=== PATIENT | male | born 1965 | race Caucasian/White ===

== ENCOUNTER → 2019-09-19 12:05 | Outpatient (BNVA) | payer MEDICARE, MEDICAID, SELFPAY | PROVIDERS: Family Provider Nurse Practitioner; Visit Provider Nurse Practitioner Family | DX: E11.9 Type 2 diabetes mellitus without complications (principal) | CPT/HCPCS: 80053; 80061; 82044; 83036; 85025 ==

== ENCOUNTER → 2019-10-31 11:46 | Outpatient (BNVA) | payer MEDICARE, MEDICAID, SELFPAY | PROVIDERS: Family Provider Nurse Practitioner; Visit Provider Nurse Practitioner Family | DX: K59.00 Constipation, unspecified (principal); M54.5 Low back pain | CPT/HCPCS: 74018 ==

== ENCOUNTER → 2019-12-23 13:15 | Outpatient (BNVA) | payer MEDICARE, MEDICAID, SELFPAY | PROVIDERS: Family Provider Nurse Practitioner; Visit Provider Nurse Practitioner Family | DX: B83.9 Helminthiasis, unspecified (principal) | CPT/HCPCS: 87169; 87506 ==

== ENCOUNTER 2019-12-25 05:57 | Day surgery (SDC) | payer MEDICARE, MEDICAID, SELFPAY ==
[2019-12-25 06:18] VITALS: BMI 24.6
--- NOTE | 2019-12-25 06:18 | W.PM.OPSUD ---
Surgery/Procedure H&P Update DATE OF PROCEDURE: December 25, 2019 DATE H&P PERFORMED: 12/02/19 H&P UPDATE INFORMATION: I have reviewed H&P completed within last 30 days, I have examined patient prior to procedure and No changes to prior documentation PREOP DIAGNOSIS: Change in bowel habit PRIMARY INDICATION FOR PROCEDURE: The same PLANNED PROCEDURE: Operation Date: 12/25/19 07:00 Proposed Procedures p Colonoscopy 45445 R19.4(Not Applicable) - Gagandeep Hernandez MD
[2019-12-25 06:25] VITALS: BP 137/101; PULSE 103; RESP 20; TEMP 36.2; O2SAT 97
[2019-12-25] MEDS: sodium chloride 0.9% 1,000 ML 30 ML IV (06:35)
--- NOTE | 2019-12-25 06:38 | ANES.PREANE2 ---
Pre-Anesthetic Assessment Pre-Anesthetic Assessment: Height/Weight: Height 1.98 m Weight 96.615 kg Temp Pulse Resp BP Pulse Ox 97.1 F L 103 H 20 H 137/101 97 12/25/19 06:25 12/25/19 06:25 12/25/19 06:25 12/25/19 06:25 12/25/19 06:25 Preop Diagnosis: Change in bowel habit Proposed Procedure: Operation Date: 12/25/19 07:00 Proposed Procedures p Colonoscopy 56871 R19.4(Not Applicable) - Gagandeep Hernandez MD Was Beta Gopi taken within 24 hours: N/A Last Intake: 00:00 Social: Social History: Tobacco (1pk) Exam: Pre-Anes Outpt Exam: alert, oriented x 3, clear to auscultation bilaterally and regular rate & rhythm Airway: Submandibular: WNL Cervical ROM: WNL MP: 2 Dentition: False History/ROS: No significant history except as noted and No significant complaints Pulmonary: Pulmonary: COPD CV/HEM: CV/HEM: [place] (3yr ago, no stent) : : None reported Hepatic: Hepatic: None reported GI: GI: GERD Metabolic: Metabolic: DM Musc/skel: Musc/skel: Lower Back Pain and OA/DJD Neuropsych: Neuropsych: None reported Anesthetic Plan: ASA status: 3 Anesthesia: MAC Meds/Allergies Current Medications: Current Medications Generic Name Dose Route Start Last Admin Trade Name Freq PRN Reason Stop Dose Admin Sodium Chloride 1,000 mls @ 30 ml s/hr 12/25/19 06:15 12/25/19 06:35 Sodium Chloride 0.9% IV 12/26/19 06:14 30 mls/hr .Q24H LEO Administration PFSH Anesthesia PFSH: Medical History (Updated 12/20/19 @ 13:36 by TIFFANIE Guthrie) Anxiety Caries Change in bowel habits COPD (chronic obstructive pulmonary disease) Erectile dysfunction GERD (gastroesophageal reflux disease) History of [place] (myocardial infarction) Hyperlipidemia Hypertension Hypogonadism Mass of upper lobe of right lung Uncontrolled diabetes mellitus Surgical History History of appendectomy History of total shoulder replacement Family History Other Cancer Diabetes Heart disease Hypertension Social History Smoking and tobacco status: smoker, details unknown cigarettes Packs smoked per day: 1.5 Years cigarettes smoked: 45 Second hand smoke exposure: Yes Alcohol intake: current Alcohol intake frequency: holidays/special occasions only Lives independently: Yes Household members: family Marital status: service: No Current occupational status: disabled History of recent travel: No Current gender identity: Male Data Anesthesia Cardiac Studies: No Data to Display
[2019-12-25 07:06] VITALS: BP 119/85; PULSE 193; RESP 16; TEMP 36.4; O2SAT 97
[2019-12-25 07:15] VITALS: BP 108/71; PULSE 115; RESP 18; O2SAT 98
--- NOTE | 2019-12-25 08:37 | ANE.PACU2 ---
Inpatient post-anesthesia follow up: Airway intact: Yes Vital signs: Temperature 97.6 F Pulse Rate 115 Respiratory Rate 18 Blood Pressure 108/71 Pulse Oximetry 98 Oxygen Delivery Me thod Room Air Oxygen Flow Rate 3 Fraction of Inspir ed Oxygen Hydration adequate: Yes Nausea and vomiting: No Mental status: Baseline
[2019-12-25 11:07] LABS: Glucose Point of Care 276 mg/dL (70-110)
== END 2019-12-25 07:23 | disposition home or self-care (01) ==
PROVIDERS: Visit Provider Surgery
PROC: 0DJD8ZZ Inspection of Lower Intestinal Tract, Via Natural or Artificial Opening Endoscopic (ICD-10-PCS; CPT 45378; principal; 2019-12-25 07:00)
DX: R19.4 Change in bowel habit (principal); K64.4 Residual hemorrhoidal skin tags; F41.9 Anxiety disorder, unspecified; J44.9 Chronic obstructive pulmonary disease, unspecified; K21.9 Gastro-esophageal reflux disease without esophagitis; E78.5 Hyperlipidemia, unspecified; I10 Essential (primary) hypertension; I25.2 Old myocardial infarction; F17.210 Nicotine dependence, cigarettes, uncomplicated; E11.9 Type 2 diabetes mellitus without complications; Z79.84 Long term (current) use of oral hypoglycemic drugs; M19.90 Unspecified osteoarthritis, unspecified site; Z82.49 Family history of ischemic heart disease and other diseases of the circulatory system
CPT/HCPCS: 12345; 36416; 45378; 82962; J2704; J7030

== ENCOUNTER → 2020-01-10 11:00 | Outpatient (BNVA) | payer MEDICARE, MEDICAID, SELFPAY | PROVIDERS: Visit Provider Nurse Practitioner Family | DX: R10.84 Generalized abdominal pain (principal); E11.65 Type 2 diabetes mellitus with hyperglycemia; Z79.4 Long term (current) use of insulin; I10 Essential (primary) hypertension; R91.8 Other nonspecific abnormal finding of lung field; K21.9 Gastro-esophageal reflux disease without esophagitis; E78.5 Hyperlipidemia, unspecified; M54.42 Lumbago with sciatica, left side; M54.41 Lumbago with sciatica, right side; J44.9 Chronic obstructive pulmonary disease, unspecified; F41.9 Anxiety disorder, unspecified; F17.200 Nicotine dependence, unspecified, uncomplicated | CPT/HCPCS: 80053; 80061; 82044; 83036; 84443; 85025 ==

== ENCOUNTER 2020-02-05 09:07 | Outpatient (CLI) | payer MEDICARE, MEDICAID, SELFPAY ==
--- NOTE | 2020-02-05 09:47 | CT_ITS ---
WS: [id number] CT scan of the chest With IV contrast, CT scan of the abdomen and pelvis with IV contrast and witho ut oral contrast. Additional two-dimensional coronal and sagittal reconstruction was performed. 2019 Clinical Data: abdominal pain, lower Comparison: CTA chest, 01/23/2019. DLP: 2564.[address] scans at [facility] use at least one of these dose optimization techniques: automat ed exposure control; mA and/or kV adjustment per patient size (includes targeted exams where dose is matched to clinical indication); or iterative reconstruction. Findings: Chest: Right upper lobe the mass now measures 2.46 cm. No other masses are seen. There are no lung nodules. No effusions are present. The trachea bifurcates normally into the bronchi. The heart size is normal with no pericardial effusion. The pulmonary arterial system and thoracic aorta demonstrate no abnormalities or dilatations. There is no axillary or significant mediastinal adenopathy. The bones of the thorax are unremarkable. Abdomen/pelvis: 1 The liver, gallbladder, spleen, adrenal glands and pancreas are normal. The kidneys show equal bilateral contrast excretion with no masses, hydronephrosis or renal calculi. There is a 1.42 cm left renal cortical cyst.. The abdominal aorta is normal in size. No appendicitis or diverticulitis is seen. The small bowel and stomach are not remarkable. No abscess , adenopathy, ascites, mass, obstruction or free air is seen.. The bladder is unremarkable. No inguinal hernia is seen. The bones of the lower thorax, lumbar spine, pelvis, and hips no osteoarthritis of the lumbar vertebr al bodies.. CT/CT chest abd pel w con* Impression: 1. Right upper lobe mass which is slightly larger than was seen last year. 2. No evidence of metastatic disease. 3. Negative for acute intra-abdominal or pelvic abnormalities.
[2020-02-05] MEDS: iohexol 300 mg/mL 100 mL Btl IV (10:15)
== END 2020-02-05 09:08 | disposition home or self-care (01) ==
LOC: RADWPI 09:11
PROVIDERS: Family Provider Nurse Practitioner Family; PCP Nurse Practitioner Family; Visit Provider Nurse Practitioner Family
DX: R10.30 Lower abdominal pain, unspecified (principal); R91.8 Other nonspecific abnormal finding of lung field
CPT/HCPCS: 71260; 74177; Q9967

== ENCOUNTER → 2020-03-03 14:45 | Outpatient (BNVA) | payer MEDICARE, MEDICAID, SELFPAY | PROVIDERS: Family Provider Nurse Practitioner Family; PCP Nurse Practitioner Family; Visit Provider Nurse Practitioner Family | DX: R19.5 Other fecal abnormalities (principal); R10.84 Generalized abdominal pain; N52.9 Male erectile dysfunction, unspecified | CPT/HCPCS: 80053; 85025 ==

== ENCOUNTER → 2020-03-06 14:45 | Outpatient (BNVA) | payer MEDICARE, MEDICAID, SELFPAY | PROVIDERS: Family Provider Nurse Practitioner Family; PCP Nurse Practitioner Family; Visit Provider Nurse Practitioner Family | DX: R19.5 Other fecal abnormalities (principal) | CPT/HCPCS: 82272 ==

== ENCOUNTER → 2020-04-20 12:26 | Outpatient (BNVA) | payer MEDICARE, MEDICAID, SELFPAY | PROVIDERS: Family Provider Nurse Practitioner Family; PCP Nurse Practitioner Family; Visit Provider Nurse Practitioner Family | DX: E11.65 Type 2 diabetes mellitus with hyperglycemia (principal); Z79.4 Long term (current) use of insulin | CPT/HCPCS: 80053; 80061; 83036; 85025 ==

== ENCOUNTER 2020-04-28 12:28 | Outpatient (CLI) | payer MEDICARE, MEDICAID, SELFPAY ==
--- NOTE | 2020-04-28 13:00 | MR_ITS ---
WS: [id number] MRI LUMBAR SPINE NONCONTRAST TECHNIQUE: Sagittal T1, T2 and STIR imaging. Axial T1 and T2 imaging. CLINICAL INFORMATION: M54.5 Low back pain COMPARISON: None. FINDINGS: Mild lumbar curve. No acute compression. Mild disc bulging worse L4-L5 and L5-S1 with tiny disc protr usions. L1-L2: No significant disc bulging. Mild facet arthropathy. L2-L3: No significant disc bulging. Mild facet arthropathy. Spinal canal and foramen are patent. L3-L4: Mild annular bulging. Moderate facet arthropathy. Mild right and no significant left foraminal narrowing. Tiny right foraminal protrusion. L4-L5: Mild disc bulging with a left pericentral disc protrusion impinges the traversing left L5 nerv e root in the subarticular recess. Mild to moderate facet arthropathy. Mild bilateral foraminal narro wing. Slight subligamentous migration of disc material. L5-S1: Disc osteophyte complex with endplate ridging. Slight effacement of ventral thecal sac. Mild f acet arthropathy. Mild to moderate bilateral foraminal narrowing. Visualized pelvic bony structures: Normal. Paravertebral soft tissues: Normal. Mild central canal stenosis on the batch maker imaging the cervical spine at C4-C6. MR/MR lumbar spine wo con* [id number] IMPRESSION: 1. Mild lumbar curve. No acute compression. No high-grade central canal stenos is. 2. Left pericentral disc protrusion L4-5 with a tiny annular tear impinges the traversing left L5 nerve root.Correlation for left L5 nerve root symptoms. 3. Disc osteophyte complex L5-S1 with slight effacement of the ventral thecal sac and small shallow central protrusion. Mild to moderate bilateral L5-S1 fora chelsea narrowing due to disc osteophytic ridging. 4. Tiny shallow right foraminal protrusion L3-4 with mild right foraminal narr owing. 5. Mild central canal stenosis in the cervical spine on the batch maker imaging at C 4-C6.
== END 2020-04-28 12:29 | disposition home or self-care (01) ==
LOC: RADSHAW 12:32
PROVIDERS: PCP Nurse Practitioner Family; Visit Provider Nurse Practitioner Family
DX: M51.26 Other intervertebral disc displacement, lumbar region (principal); M25.78 Osteophyte, vertebrae; M48.02 Spinal stenosis, cervical region
CPT/HCPCS: 72148

== ENCOUNTER → 2020-07-03 09:17 | Outpatient (BNVA) | payer MEDICARE, MEDICAID, SELFPAY | PROVIDERS: PCP Nurse Practitioner Family; Visit Provider Nurse Practitioner Family | DX: M25.572 Pain in left ankle and joints of left foot (principal); I10 Essential (primary) hypertension; L03.116 Cellulitis of left lower limb; K59.00 Constipation, unspecified; E11.65 Type 2 diabetes mellitus with hyperglycemia; Z79.4 Long term (current) use of insulin | CPT/HCPCS: 73610; 80053; 80061; 83036; 85025 ==

== ENCOUNTER → 2020-08-12 15:28 | Outpatient (BNVA) | payer MEDICARE, MEDICAID, SELFPAY | PROVIDERS: PCP Nurse Practitioner Family; Visit Provider Nurse Practitioner Family | DX: J06.9 Acute upper respiratory infection, unspecified (principal) | CPT/HCPCS: 87635 ==

== ENCOUNTER → 2020-10-08 16:24 | Outpatient (BNVA) | payer MEDICARE, MEDICAID, SELFPAY | PROVIDERS: PCP Nurse Practitioner Family; Visit Provider Nurse Practitioner Family | DX: I10 Essential (primary) hypertension (principal); E11.40 Type 2 diabetes mellitus with diabetic neuropathy, unspecified; E11.65 Type 2 diabetes mellitus with hyperglycemia; Z79.4 Long term (current) use of insulin; N52.9 Male erectile dysfunction, unspecified; M54.42 Lumbago with sciatica, left side; R10.9 Unspecified abdominal pain; G89.29 Other chronic pain; M54.41 Lumbago with sciatica, right side; F17.200 Nicotine dependence, unspecified, uncomplicated; E78.5 Hyperlipidemia, unspecified; K21.9 Gastro-esophageal reflux disease without esophagitis; J44.9 Chronic obstructive pulmonary disease, unspecified | CPT/HCPCS: 80053; 80061; 83036; 85025 ==

== ENCOUNTER 2020-11-08 18:34 | Emergency (ER) | payer MEDICARE, MEDICAID, SELFPAY ==
--- NOTE | 2020-11-08 18:38 | XRR_ITS ---
PROCEDURE INFORMATION: Exam: XR Chest Exam date and time: 11/08/2020 7:10 PM Age: 55 years old Clinical indication: Chest pain; Prior surgery; Surgery type: Appy; Additional info: Cp TECHNIQUE: Imaging protocol: XR of the chest. Views: 1 view. COMPARISON: 1. CT chest abd pel w con* 02/05/2020 10:11 AM 2. [place] Chest 1 [place] [id number] 01/23/2019 3:42:57 PM FINDINGS: Lungs: There is a mass projecting in the right upper lobe that measures about 2.7 cm in diameter. This is similar to the previous chest radiograph from 01/23/2019. Mild fibrotic changes are present in the lung bases. Pleural spaces: Unremarkable. No pleural effusion. No pneumothorax. Heart/Mediastinum: Unremarkable. No cardiomegaly. Bones/joints: Unremarkable. XR/XR chest 1V portable [id number] IMPRESSION: 1. There has been no significant change in the size of the right upper lobe lung mass since previous chest x-ray from 01/23/2019. 2. No other acute abnormalities are seen in the chest.
--- NOTE | 2020-11-08 18:38 | ECG_ITS ---
[facility] Test Date: 2020-11-08 Pat Name: Wes Edward Department: Room: Gender: Male [employer] Director: : 1965 Requested By: Duran Mccoy Order Number: [id number] Andres MD: Keren Ruiz M.D. Measurements Intervals [place] Rate: 90 P: 40 IA: 197 QRS: 32 QRSD: 92 T: 37 QT: 336 QTc: 411 Interpretive Statements SINUS RHYTHM Compared to ECG 01/23/2019 14:48:18 Sinus tachycardia no longer present Electronically Signed On 11-10-2020 12:23:22 CDT by Keren Ruiz M.D. [id number] f
[2020-11-08 18:52] VITALS: BP 140/96; PULSE 93; RESP 18; TEMP 36.9; O2SAT 95; BMI 29.7
--- NOTE | 2020-11-08 18:52 | ED_ITS ---
HPI - Chest Pain General: Chief Complaint: Chest Pain Stated Complaint: CHEST PAIN Time Seen by Provider: 11/08/20 18:38 History of Present Illness: HPI narrative: The patient is a 55-year-old male with past medical history coronary artery disease and multiple MIs in the past, diabetes, COPD. He comes to the ER complaining of onset of left-sided chest pain earlier today. He took a nitroglycerin at home which did not help with this pain but his medication is . Called EMS who arrived and gave him one of their nitroglycerin which did help reduce his pain somewhat. They also gave him aspirin 324 and brought him to the ED. EKG shows sinus rhythm. He complains of left-sided chest pain. He says he has been under a lot of stress recently he thinks that is what is causing this. He has had multiple MIs in the past and has had no stents. He has not followed up with cardiology in years. Pertinent past history: coronary artery disease and prior VT Timing of current episode: constant Onset: during rest and during exertion Pain location: left chest Pain radiation: left shoulder Severity: moderate Quality: similar to prior VT Relieving factors: nitroglycerin Exacerbating factors: nothing Associated symptoms: Reports no associated symptoms; Deny abdominal pain, dyspnea or palpitations Treatment prior to arrival: aspirin and nitroglycerin Review of Systems General: Reports: 10 or more systems reviewed and unremarkable except in HPI and below Const: Denies: fatigue Eyes: Denies: change in vision, blurry vision or eye redness ENMT: Denies: throat pain, swelling of lips/tongue, ear or mastoid pain or nasal congestion Card: Reports: chest pain; Denies: palpitations, irregular heart rhythm, edema, dyspnea on exertion or orthopnea Resp: Denies: dyspnea, productive cough or non-productive cough GI: Denies: abdominal pain, diarrhea or GI cramping : Denies: flank pain, urinary frequency or urinary urgency Musc: Denies: neck pain, back pain, extremity pain, joint pain, joint redness, limited range of motion or muscle weakness Skin/Breast: Denies: rash, pruritus, erythema, skin pain or skin tenderness Neuro: Denies: headache(s), numbness in extremities, weakness in extremities, sensory changes, difficulty walking, dizziness, confusion or Slurred speech present Psych: Denies: anxiety or depression Endo: Denies: polyuria All/Imm: Denies: urticaria, throat swelling or tongue swelling PFSH ED PFSH: Medical History (Updated 11/08/20 @ 19:36 by Duran Mccoy MD) Abdominal pain Anxiety Caries Change in bowel habits COPD (chronic obstructive pulmonary disease) Erectile dysfunction GERD (gastroesophageal reflux disease) History of [place] (myocardial infarction) Hyperlipidemia Hypertension Hypogonadism Mass of upper lobe of right lung Uncontrolled diabetes mellitus Surgical History History of appendectomy History of colonoscopy (~12/2019) History of total shoulder replacement Family History Other Cancer Diabetes Heart disease Hypertension Social History Smoking and tobacco status: smoker, details unknown cigarettes Packs smoked per day: 1.5 Years cigarettes smoked: 45 Second hand smoke exposure: Yes Alcohol intake: current Alcohol intake frequency: holidays/special occasions only Lives independently: Yes Household members: family Marital status: service: No Current occupational status: disabled History of recent travel: No Current gender identity: Male Physical Exam Const: COMMON NORMALS: no acute distress, average body habitus, patient oriented x3, no limitations, healthy appearing, alert and well nourished GENERAL APPEARANCE: cooperative, comfortable, well kempt and well developed ORIENTATION/CONSCIOUSNESS: Yes awake, Yes oriented to person, Yes oriented to place and Yes oriented to time HENMT: COMMON NORMALS: normocephalic, external ears normal and Normal external nose present HEAD & SCALP: normal to inspection and normocephalic NOSE: Normal external nose present EXTERNAL EAR: Yes external ears normal MOUTH: Normal oral and palatal mucosa present THROAT: posterior oropharynx normal Eye: COMMON NORMALS: Equal, round and reactive pupils present and EOMs intact bilaterally GENERAL EYE: appearance normal, both eyes and all related structures PUPIL: Yes Equal, round and reactive pupils present Neck/C-Spine: COMMON NORMALS: full ROM, no lymphadenopathy, no meningeal signs and no JVD GENERAL: Yes normal visual inspection Lymph: LYMPHATIC: no lymphadenopathy noted Chest: COMMONS NORMALS: normal inspection of the chest and normal palpation of entire chest wall Resp: COMMON NORMALS: normal respiratory effort, No retractions, No use of accessory muscles, clear to auscultation bilaterally and percussion normal EFFORT & INSPECTION: Yes able to speak in complete sentences AUSCULTATION: clear to auscultation bilaterally PERCUSSION: percussion normal Cardio: COMMON NORMALS: no JVD, regular rate, regular rhythm, S1 normal heart sound present, S2 normal heart sound present and Peripheral pulses 2+ throughout RATE: regular rate RHYTHM: regular rhythm HEART SOUNDS: S1 normal heart sound present and S2 normal heart sound present PERIPHERAL PULSES: Peripheral pulses 2+ throughout GI: COMMON NORMALS: Normal to inspection, nondistended, normoactive bowel sounds present, Soft to palpation, non-tender and no masses INSPECTION: Yes normal to inspection PALPATION: Yes Soft to palpation : COMMON NORMALS: Yes no CVA tenderness BLADDER/KIDNEY EXAM: Yes no CVA tenderness Back/Pelvis: COMMON NORMALS: no CVA tenderness, thoracic and lumbar spine normal to inspection, no thoracic nor lumbar tenderness and thoraco-lumbar ROM normal Extremity: COMMON NORMALS: normal to inspection, full ROM, capillary refill normal, no joint enlargement and no pedal edema GENERAL: Yes normal exam except as noted Neuro: COMMON NORMALS: patient oriented x3, CN's II-XII intact bilaterally, moves all extremities, no focal motor deficits, no sensory deficits noted and gait normal SENSORIUM/ORIENTATION: Yes alert, Yes oriented to person, Yes oriented to place and Yes oriented to time MENINGEAL SIGNS: Yes no meningeal signs Psych: COMMON NORMALS: mental status grossly normal, Normal thought process present, cooperative, normal affect and speech normal APPEARANCE: Yes well kempt ATTITUDE: Yes calm SPEECH: Yes normal speech THOUGHT PROCESS: Normal thought process present Skin: COMMON NORMALS: no rashes or lesions noted GENERAL SKIN EXAM: no rashes or lesions noted Course Vital Signs: Vital signs: Vital Signs Temperature 98.4 F 11/08/20 18:52 Pulse Rate 89 11/08/20 19:03 Respiratory Rate 16 11/08/20 19:03 Blood Pressure 148/87 11/08/20 19:03 Pulse Oximetry 96 11/08/20 19:03 MDM - Chest Pain MDM Narrative: Medical decision making narrative: The patient for unknown reason decided to leave AGAINST MEDICAL ADVICE. I did not have time to discuss with him to stay because I was involved in the critical transfer and care of another patient. The nurse coached him that he could from a heart attack or have permanent disability. He was alert and oriented x4 acknowledged and und erstood those risks and signed and left AMA. Lab Data: Labs: Lab Results 11/08/20 Range/Units 19:10 WBC 12.8 H (4.0-10.0) 10^3/ uL RBC 5.96 H (4.1-5.3) 10^6/u L Hgb 17.4 H (11.7-16.6) g/dL Hct 51.6 (42.0-52.0) % MCV 86.6 (80-94) fL MCH 29.2 (28.0-34.0) pg MCHC 33.7 (30.0-36.0) g/dL RDW 13.8 (12.1-15.1) % Plt Count 218 (130-400) 10^3/c mm MPV 10.0 (7.4-10.4) fL Neut % (Auto) 77.6 % Lymph % (Auto) 16.5 % [place] % (Auto) 4.1 % Eos % (Auto) 1.1 % Baso % (Auto) 0.5 % Neut # (Auto) 9.96 H (1.8-7.7) 10^3/u L Lymph # (Auto) 2.1 (0.8-4.8) 10^3/u L [place] # (Auto) 0.5 (0.2-0.9) 10^3/u L Eos # (Auto) 0.1 (0.0-0.8) 10^3/u L Baso # (Auto) 0.1 (0.0-0.1) 10^3/u L Nucleated RBC % (a uto) 0 % Nucleated RBCs # 0.0 /100WBC Discharge Plan Discharge Patient Disposition: Left Against Medical Advice Clinical Impression: Chest pain Prescriptions: No Action Combivent Respimat 20-100 mcg/actuation mist 1 puff INHALATION QID Qty: 4 RF: 2 (DME) Diabetic shoes See Rx Instructions .Route .MEDSUPPLY Qty: 1 RF: 0 Senna Plus 8.6-50 mg capsule 1 tab-cap PO BID PRN (Reason: constipation) Qty: 30 RF: 0 mupirocin 2 % ointment See Rx Instructions .ROUTE .COMPLEX Qty: 22 RF: 2 docusate sodium [Colace] 100 mg capsule 100 mg PO BID 30 Days Qty: 60 RF: 3 omeprazole 40 mg capsule,delayed release(DR/EC) 40 mg PO DAILY Qty: 90 RF: 0 cyclobenzaprine 10 mg tablet See Rx Instructions .ROUTE .COMPLEX Qty: 30 RF: 0 Symbicort 160-4.5 mcg/actuation HFA aerosol inhaler 2 puff INHALATION BID Qty: 10.2 RF: 2 atorvastatin 40 mg tablet 40 mg PO DAILY Qty: 90 RF: 0 isosorbide mononitrate 30 mg tablet extended release 24 hr See Rx Instructions .ROUTE .COMPLEX Qty: 90 RF: 0 pregabalin 100 mg capsule 100 mg PO TID Qty: 90 RF: 2 polyethylene glycol 3350 [Miralax] 17 gram/dose powder 17 g PO DAILY 30 Days Qty: 510 RF: 2 (DME) FreeStyle Elena 14 Day Sensor Kit See Rx Instructions .ROUTE .MEDSUPPLY Qty: 1 RF: 12 dapagliflozin [Farxiga] 10 mg tablet See Rx Instructions .ROUTE .COMPLEX Qty: 90 RF: 0 diclofenac sodium 75 mg tablet,delayed release (DR/EC) See Rx Instructions .ROUTE .COMPLEX Qty: 180 RF: 0 metformin 500 mg tablet extended release 24 hr See Rx Instructions .ROUTE .COMPLEX Qty: 360 RF: 0 glipizide 5 mg tablet See Rx Instructions .ROUTE .COMPLEX Qty: 90 RF: 0 Referrals: Umm Herron FNP [Primary Care Provider] - Coding Level of Care Code 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
[2020-11-08 19:03] VITALS: BP 148/87; PULSE 89; RESP 16; O2SAT 96
[2020-11-08 19:19] LABS: Basophils # 0.1 10^3/uL (0.0-0.1); Basophils % 0.5 %; Eosinophils # 0.1 10^3/uL (0.0-0.8); Eosinophils % 1.1 %; Hematocrit 51.6 % (42.0-52.0); Hemoglobin 17.4 g/dL (11.7-16.6); Lymphocytes # 2.1 10^3/uL (0.8-4.8); Lymphocytes % 16.5 %; Mean Corpuscular HGB Conc 33.7 g/dL (30.0-36.0); Mean Corpuscular Hemoglobin 29.2 pg (28.0-34.0); Mean Corpuscular Volume 86.6 fL (80-94); Monocytes # 0.5 10^3/uL (0.2-0.9); Monocytes % 4.1 %; Neutrophils # 9.96 10^3/uL (1.8-7.7); Neutrophils % 77.6 %; Nucleated Red Blood Cells % 0 %; Platelet Count 218 10^3/cmm (130-400); Red Blood Count 5.96 10^6/uL (4.1-5.3); Red Cell Distribution Width 13.8 % (12.1-15.1); White Blood Count 12.8 10^3/uL (4.0-10.0)
[2020-11-08 19:35] LABS: D Dimer <= 0.27 ug/mIFEU (0-0.59)
[2020-11-08 19:40] LABS: Troponin(5th) Baseline 16 ng/L (0-15)
[2020-11-08 19:48] LABS: Alanine Aminotransferase 65 U/L (0-41); Albumin Level 4.4 g/dL (3.5-5.2); Alkaline Phosphatase 99 IU/L (40-130); Aspartate Amino Transferase 30 U/L (0-40); Blood Urea Nitrogen 9 mg/dL (6-20); Calcium 8.9 mg/dL (8.5-10.5); Carbon Dioxide 25 mmol/L (22-29); Chloride 97 mmol/L (98-107); Globulin 2.6 g/dL (1.3-4.6); Glomerular Filtration Rate 139.4 mL/min (90-130); Glucose 217 mg/dL (65-115); NT Pro B Type Natriuretic Pept 30 pg/mL (0-125); Osmolality Calculated 285 mOsm/kg (285-295); Sodium 135 mmol/L (136-145); Total Bilirubin 0.4 mg/dL (0.15-1.2)
== END 2020-11-08 19:32 | disposition left against medical advice (07) ==
PROVIDERS: Emergency Provider Family Medicine; PCP Nurse Practitioner Family
DX: R07.9 Chest pain, unspecified (principal); Z53.21 Procedure and treatment not carried out due to patient leaving prior to being seen by health care provider; Z79.84 Long term (current) use of oral hypoglycemic drugs; J44.9 Chronic obstructive pulmonary disease, unspecified; I25.2 Old myocardial infarction; E78.5 Hyperlipidemia, unspecified; I10 Essential (primary) hypertension; E11.9 Type 2 diabetes mellitus without complications; F17.210 Nicotine dependence, cigarettes, uncomplicated
CPT/HCPCS: 71045; 80053; 83880; 84484; 85025; 85378; 93005; 99283

== ENCOUNTER → 2020-11-25 14:11 | Outpatient (BNVA) | payer MEDICARE, MEDICAID, SELFPAY | PROVIDERS: PCP Nurse Practitioner Family; Visit Provider Nurse Practitioner Family | DX: R10.11 Right upper quadrant pain (principal) | CPT/HCPCS: 80053; 85025 ==

== ENCOUNTER 2020-11-27 07:56 | Outpatient (CLI) | payer MEDICARE, MEDICAID, SELFPAY ==
--- NOTE | 2020-11-27 08:00 | US_ITS ---
WS: [id number] RIGHT UPPER QUADRANT ULTRASOUND HISTORY: R10.11 - Right upper quadrant pain COMPARISON: None available. Liver: 16.9 cm in length. Liver is top normal size. Mild coarsened echotexture and hepatic steatosis. No bile duct dilatation or mass. Gallbladder: Normally distended gallbladder with no stones or wall thickening. CBD: 0.3 cm Pancreas: Normal size and echogenicity. Right kidney: 12.8 cm in length. Normal size and echogenicity. No hydronephrosis or mass. Aorta and IVC: Unremarkable abdominal aorta and IVC. No ascites. US/US gall bladder [id number] IMPRESSION: 1. Normal gallbladder. 2. Mild hepatic steatosis.
== END 2020-11-27 07:57 | disposition home or self-care (01) ==
PROVIDERS: PCP Nurse Practitioner Family; Visit Provider Nurse Practitioner Family
DX: R10.11 Right upper quadrant pain (principal); K76.0 Fatty (change of) liver, not elsewhere classified
CPT/HCPCS: 76705

== ENCOUNTER → 2021-03-03 11:33 | Outpatient (BNVA) | payer MEDICARE, MEDICAID, SELFPAY | PROVIDERS: PCP Nurse Practitioner; Visit Provider Nurse Practitioner | DX: E11.65 Type 2 diabetes mellitus with hyperglycemia (principal); K59.01 Slow transit constipation; Z79.4 Long term (current) use of insulin; M54.41 Lumbago with sciatica, right side; M54.42 Lumbago with sciatica, left side; J44.9 Chronic obstructive pulmonary disease, unspecified; E11.40 Type 2 diabetes mellitus with diabetic neuropathy, unspecified; K21.9 Gastro-esophageal reflux disease without esophagitis | CPT/HCPCS: 80053; 80061; 83036; 84443; 85025 ==

== ENCOUNTER → 2021-11-16 14:41 | Outpatient (BNVA) | payer MEDICARE, MEDICAID, SELFPAY | PROVIDERS: PCP Nurse Practitioner; Visit Provider Nurse Practitioner | DX: E11.65 Type 2 diabetes mellitus with hyperglycemia (principal); Z12.5 Encounter for screening for malignant neoplasm of prostate; N52.9 Male erectile dysfunction, unspecified | CPT/HCPCS: 80053; 80061; 81000; 83036; 85025; G0103 ==

== ENCOUNTER → 2021-12-31 13:58 | Outpatient (BNVA) | payer MEDICARE, MEDICAID, SELFPAY | PROVIDERS: PCP Nurse Practitioner; Visit Provider Nurse Practitioner | DX: E11.65 Type 2 diabetes mellitus with hyperglycemia (principal); Z79.4 Long term (current) use of insulin; J32.9 Chronic sinusitis, unspecified | CPT/HCPCS: 80048 ==

== ENCOUNTER → 2022-01-12 13:04 | Outpatient (BNVA) | payer MEDICARE, MEDICAID, SELFPAY | PROVIDERS: PCP Nurse Practitioner; Visit Provider Nurse Practitioner Family | DX: M47.812 Spondylosis without myelopathy or radiculopathy, cervical region (principal); M47.817 Spondylosis without myelopathy or radiculopathy, lumbosacral region; M47.814 Spondylosis without myelopathy or radiculopathy, thoracic region | CPT/HCPCS: 72040; 72072; 72100 ==

== ENCOUNTER → 2022-03-02 13:32 | Outpatient (BNVA) | payer MEDICARE, MEDICAID, SELFPAY | PROVIDERS: PCP Nurse Practitioner; Visit Provider Nurse Practitioner Family | DX: M25.511 Pain in right shoulder (principal) | CPT/HCPCS: 73030 ==

== ENCOUNTER → 2022-03-15 10:09 | Outpatient (BNVA) | payer MEDICARE, MEDICAID, SELFPAY | PROVIDERS: PCP Nurse Practitioner; Visit Provider Orthopaedic Surgery | DX: R29.898 Other symptoms and signs involving the musculoskeletal system (principal) | CPT/HCPCS: 99203 ==

== ENCOUNTER → 2022-03-17 10:24 | Outpatient (BNVA) | payer MEDICARE, MEDICAID, SELFPAY | PROVIDERS: PCP Nurse Practitioner; Visit Provider Nurse Practitioner Family | DX: R53.83 Other fatigue (principal); N52.9 Male erectile dysfunction, unspecified; E11.65 Type 2 diabetes mellitus with hyperglycemia; Z12.5 Encounter for screening for malignant neoplasm of prostate; K21.9 Gastro-esophageal reflux disease without esophagitis; E11.40 Type 2 diabetes mellitus with diabetic neuropathy, unspecified; M25.511 Pain in right shoulder; M54.42 Lumbago with sciatica, left side; M54.41 Lumbago with sciatica, right side; G89.29 Other chronic pain; M75.00 Adhesive capsulitis of unspecified shoulder | CPT/HCPCS: 80053; 80061; 83036; 84402; 84403; 85025; G0103 ==

== ENCOUNTER → 2022-04-01 13:19 | Outpatient (BNVA) | payer MEDICARE, MEDICAID, SELFPAY | PROVIDERS: PCP Nurse Practitioner; Visit Provider Podiatrist Foot & Ankle Surgery | DX: E11.621 Type 2 diabetes mellitus with foot ulcer (principal); L97.513 Non-pressure chronic ulcer of other part of right foot with necrosis of muscle; L03.90 Cellulitis, unspecified; F17.210 Nicotine dependence, cigarettes, uncomplicated; E11.40 Type 2 diabetes mellitus with diabetic neuropathy, unspecified; M20.41 Other hammer toe(s) (acquired), right foot; M20.42 Other hammer toe(s) (acquired), left foot; L60.3 Nail dystrophy; Z79.84 Long term (current) use of oral hypoglycemic drugs | CPT/HCPCS: 11043; 11721; 73630; 99204 ==

== ENCOUNTER → 2022-04-12 15:37 | Outpatient (BNVA) | payer MEDICARE, MEDICAID, SELFPAY | PROVIDERS: PCP Nurse Practitioner; Visit Provider Podiatrist Foot & Ankle Surgery | DX: L03.032 Cellulitis of left toe (principal); E11.621 Type 2 diabetes mellitus with foot ulcer; L97.529 Non-pressure chronic ulcer of other part of left foot with unspecified severity; Z79.84 Long term (current) use of oral hypoglycemic drugs; B35.1 Tinea unguium; E11.42 Type 2 diabetes mellitus with diabetic polyneuropathy | CPT/HCPCS: 99214 ==

== ENCOUNTER → 2022-04-20 17:14 | Outpatient (BNVA) | payer MEDICARE, MEDICAID, SELFPAY | PROVIDERS: PCP Nurse Practitioner; Visit Provider Nurse Practitioner Family | DX: R53.83 Other fatigue (principal); N52.9 Male erectile dysfunction, unspecified | CPT/HCPCS: 84402; 84403; G0103 ==

== ENCOUNTER → 2022-07-05 08:46 | Outpatient (BNVA) | payer MEDICARE, MEDICAID, SELFPAY | PROVIDERS: PCP Nurse Practitioner; Visit Provider Surgery | DX: K42.9 Umbilical hernia without obstruction or gangrene (principal); R10.84 Generalized abdominal pain; R11.0 Nausea; N52.9 Male erectile dysfunction, unspecified; K59.01 Slow transit constipation; R12 Heartburn | CPT/HCPCS: 99214 ==

== ENCOUNTER 2022-07-21 13:07 | Outpatient (CLI) | payer MEDICARE, MEDICAID, SELFPAY ==
--- NOTE | 2022-07-21 13:18 | CT_ITS ---
WS: [id number] CT ABDOMEN AND PELVIS WITH CONTRAST HISTORY: stomach pain, nausea and constipation rule out obstruction TECHNIQUE: Imaging performed of the abdomen and pelvis with IV contrast. Single phase imaging of the abdomen. Coronal and sagittal reformats are submitted. All CT scans at [facility] use at [address] one of these dose optimization techniques: automated exposure control; mA and/or kV adjustment per patient size (includes targeted exams where dose is matched to clinical indication); or iterative re construction. IV CONTRAST: Omnipaque 350; 95 mL IV. Oral contrast: Yes. DLP: 1176.24 mGy.cm COMPARISON: 02/05/2020 Lower thorax: Marked nodular interstitial thickening at the RIGHT lung base and small effusion. Patie nt has a known, previously described mass in the RIGHT upper lobe as seen on 02/05/2020. This could be lymphangitic spread of tumor involving the visualized RIGHT lower lung field. Normal size heart. The re are a few small subcentimeter lymph nodes in the pericardial fat. Small hiatal hernia. Liver/biliary system: Normal size liver. Low-attenuation mass just anterior the gallbladder measures 9 mm. No bile duct dilatation. Portal vein is patent. Gallbladder: Mildly contracted gallbladder. Pancreas: Normal size pancreas and pancreatic duct. No adjacent inflammation. Spleen: Normal size spleen. No mass or infarct. Adrenal glands: Normal. Right kidney: Normal size kidney with a few cortical hypodensities which do not appear to be cysts. N o obstruction. Left kidney: Normal size with no obstruction. 1.5 cm cyst mid kidney. Aorta: Mild atherosclerosis with no aneurysm. Lymphadenopathy: Several small lymph nodes in the anterior lower thorax by the heart and in the fat anterior to the li kuldip. There are numerous small lymph nodes along the gastrohepatic ligament which are less than a cent imeter. Free fluid: None. GI tract: Normal appearance of the stomach. No small bowel obstruction. Mild diffuse constipation. Pr ior appendectomy. No colon obstruction. Abdominal wall: Unremarkable abdominal wall. No hernia. Pelvis: No free fluid or adenopathy within the pelvis. Bones: Unremarkable. CT/CT abdomen pelvis w con* [id number] IMPRESSION: 1. Abnormal RIGHT lung base. Nodular interstitial thickening at the lung base. Suspicious for lymphangitic spread of tumor versus pneumonia with a small effu jania. RIGHT upper lobe mass suspicious for neoplasm was described on 02/04/2021 and again on a radiograph of 11/08/2020. 2. Indeterminate 9 mm low-attenuation nodule in the liver. Early metastatic le jania is not excluded. 3. No adrenal mass. 4. There are a few very small lymph nodes in the upper abdomen which could be early metastatic lymph nodes or benign. 5. Prior cholecystectomy. Notified Kassy Ashley NP at 07/21/2022 4:04 PM.
[2022-07-21] MEDS: iohexol 350 mg/mL 500 mL Btl (per mL) IV (15:04)
== END 2022-07-21 13:08 | disposition home or self-care (01) ==
LOC: RAD 13:10
PROVIDERS: PCP Nurse Practitioner; Visit Provider Nurse Practitioner Family
DX: E11.621 Type 2 diabetes mellitus with foot ulcer (principal); L97.522 Non-pressure chronic ulcer of other part of left foot with fat layer exposed; E11.42 Type 2 diabetes mellitus with diabetic polyneuropathy; Z79.84 Long term (current) use of oral hypoglycemic drugs; K59.01 Slow transit constipation; R10.11 Right upper quadrant pain; R10.84 Generalized abdominal pain; R11.2 Nausea with vomiting, unspecified
CPT/HCPCS: 74177; 99214; Q9967

== ENCOUNTER 2022-08-04 16:16 | Outpatient (CLI) | payer MEDICARE, MEDICAID, SELFPAY ==
[2022-08-04] MEDS: iohexol 350 mg/mL 500 mL Btl (per mL) IV (16:47)
--- NOTE | 2022-08-04 17:00 | CTR_ITS ---
PROCEDURE INFORMATION: Exam: CT Chest With Contrast; Diagnostic Exam date and time: 08/04/2022 4:35 PM Age: 56 years old Clinical indication: Abnormal findings; Abnormal radiologic exam of lung or chest; Patient HX: Abn finding in chest on a/p; Additional info: Lung mass abn CT of abd, per Dr saldaña possible mets TECHNIQUE: Imaging protocol: Diagnostic computed tomography of the chest with contrast. Radiation optimization: All CT scans at this facility use at least one of these dose optimization techniques: automated exposure control; mA and/or kV adjustment per patient size (includes targeted exams where dose is matched to clinical indication); or iterative reconstruction. Contrast material: OMNI 350; Contrast volume: 95 ml; Contrast route: INTRAVENOUS (IV); COMPARISON: CT chest abd pel w con* 02/05/2020 10:11 AM RADIATION DOSE METRICS: Total DLP (mGy-cm): 554.8 FINDINGS: Lungs: Irregular soft tissue density in the right hilum surrounding the pulmonary vessels and tracking along the bronchi into the right upper, middle, and lower lobes. Larger 3.0 cm spiculated nodule in the right upper lobe. Scattered centrilobular opacities throughout the right lung and posterior right lower lobe. New 8 mm nodule in the posterior right lower lobe. New 3 mm and 2 mm left upper lobe nodules. New 3 mm and 4 mm left lower lobe nodules. Pleural spaces: Small posterior right pleural effusion. No visible pleural thickening or nodularity. No pneumothorax. Heart: Unremarkable. No cardiomegaly. No pericardial effusion. Lymph nodes: Increased mediastinal and hilar lymph nodes some of which contain calcifications, the largest measuring up to 1.3 cm short axis. Vasculature: Unremarkable. No aortic aneurysm. Liver: Diffuse fatty infiltration of the liver. Kidneys and ureters: Left renal cyst, Hounsfield units less than 20. No follow-up imaging is recommended. Bones/joints: Mild degenerative changes of the spine. No fracture or lytic lesion. Soft tissues: Unremarkable. CT/CT chest w con* [id number] IMPRESSION: 1. Larger 3.0 cm spiculated nodule in the right upper lobe, consistent with lung malignancy. 2. Perilymphatic opacities in the central right lung and hilum most likely represents lymphangitic spread of malignancy. 3. Centrilobular opacities throughout the right lung may represent endobronchial infection or atypical spread of malignant tumor. 4. New bilateral pulmonary nodules, consistent with metastatic disease. 5. Small right pleural effusion, possibly malignant. 6. Increased mediastinal and bilateral hilar lymph nodes is suspicious for metastasis. COMMENTS: Consistent with the [employer]'s Incidental Findings Committee white paper (J Am Jamil Radiol 2018): Any incidental renal lesion less than 1 cm or classified as too small to characterize, or any incidental cystic renal lesion characterized as simple-appearing, is likely benign. No follow-up imaging is recommended for these lesions per consensus recommendations based on imaging criteria.
== END 2022-08-04 16:17 | disposition home or self-care (01) ==
LOC: RAD 16:16
PROVIDERS: PCP Nurse Practitioner Family; Visit Provider Nurse Practitioner Family
DX: R93.5 Abnormal findings on diagnostic imaging of other abdominal regions, including retroperitoneum (principal); R91.8 Other nonspecific abnormal finding of lung field; J90 Pleural effusion, not elsewhere classified
CPT/HCPCS: 71260; Q9967

== ENCOUNTER → 2022-08-08 14:36 | Outpatient (BNVA) | payer MEDICARE, MEDICAID, SELFPAY | PROVIDERS: PCP Nurse Practitioner Family; Visit Provider Nurse Practitioner Family | DX: E11.42 Type 2 diabetes mellitus with diabetic polyneuropathy (principal); R53.83 Other fatigue; E11.65 Type 2 diabetes mellitus with hyperglycemia; C34.90 Malignant neoplasm of unspecified part of unspecified bronchus or lung; R74.01 Elevation of levels of liver transaminase levels; F41.9 Anxiety disorder, unspecified; J44.9 Chronic obstructive pulmonary disease, unspecified; E78.5 Hyperlipidemia, unspecified; I10 Essential (primary) hypertension; K21.9 Gastro-esophageal reflux disease without esophagitis | CPT/HCPCS: 80053; 80061; 82378; 83036 ==

== ENCOUNTER → 2022-08-15 09:25 | Outpatient (BNVA) | payer MEDICARE, MEDICAID, SELFPAY | PROVIDERS: PCP Nurse Practitioner Family; Visit Provider Internal Medicine Pulmonary Disease | DX: R91.8 Other nonspecific abnormal finding of lung field (principal); J44.9 Chronic obstructive pulmonary disease, unspecified; Z71.6 Tobacco abuse counseling; F17.210 Nicotine dependence, cigarettes, uncomplicated | CPT/HCPCS: 99204 ==

== ENCOUNTER 2022-08-16 05:28 | Day surgery (SDC) | payer MEDICARE, MEDICAID, SELFPAY ==
[2022-08-15 12:32] VITALS: BMI 26.9
[2022-08-16] VITALS (13 sets, daily range): BP systolic 98–159; BP diastolic 72–138; PULSE 95–120; RESP 18–23; TEMP 36.2–36.5; O2SAT 91–98
[2022-08-16] MEDS: sodium chloride 0.9% 1,000 ML 30 ML IV (06:40)
--- NOTE | 2022-08-16 06:44 | ECG_ITS ---
[facility] Test Date: 2022-08-16 Pat Name: Wes Edward Department: Room: Gender: Male Practice Lead: : 1965 Requested By: Kathe Klein Order Number: [id number] Campos MD: John Vazquez M.D. Measurements Intervals [place] Rate: 103 P: 33 MS: 176 QRS: 59 QRSD: 97 T: 39 QT: 327 QTc: 429 Interpretive Statements SINUS TACHYCARDIA POSSIBLE LEFT ATRIAL ENLARGEMENT [-0.1mV P-WAVE IN V1/V2] Compared to ECG 11/08/2020 18:46:41 Sinus rhythm no longer present Electronically Signed On 08-16-2022 7:48:02 MEDIA PLANNER / BUYER by John Vazquez M.D. [id number]
--- NOTE | 2022-08-16 06:47 | ANES.PREANE2 ---
Pre-Anesthetic Assessment Height/Weight: Height 1.85 m Weight 92.533 kg Temp Pulse Resp BP Pulse Ox O2 Del Method O2 Flow Rate 97.7 F 111 H 18 159/138 91 2 08/16/22 06:07 08/16/22 06:07 08/16/22 06:07 08/16/22 06:07 08/16/22 06:07 08/16/22 06:07 08/16/22 06:07 Preop Diagnosis: Change in bowel habit Operation Date: 08/16/22 07:00 Proposed Procedures p ION Bronchoscopy with EBUS 46877, 03122, 47480, 64892, 28437, 70699, 82239, 57659,72012, 10923,R91.8(Not Applicable) - Yariel Rocha MD s Ebus(Not Applicable) - Yariel Rocha MD Familial anesthetic complications: None Was Beta Gopi taken within 24 hours: N/A Was Clonidine taken within 24 hours: N/A Last intake: Intake Last Liquid Date 08/15/22 Last Liquid Time 23:00 Last Solid Date 08/15/22 Last Solid Time 19:00 Social Tobacco and No alcohol Exam alert, oriented x 3, clear to auscultation bilaterally and regular rate & rhythm Airway Mallampati: Class IV Dentition: other (no teeth) Pulmonary Chronic Obstructive Pulmonary Disease (2 L NC O2) and Sleep Apnea Lung mass CV/HEM Coronary Artery Disease, Hypertension and Myocardial Infarction GI Gastroesophageal Reflux Disease Metabolic Diabetes Mellitus and Hyperlipidemia Anesthetic Plan ASA status: 4 Anesthesia: General Risk of > 500 ml blood loss (7ml/kg in children): No Medications/Allergies Home Medications Medication Instructions Recorded Confirmed Last Taken Type diclofenac sodium 1 % topical gel 4 g topical QID #100 grams 03/02/22 08/16/22 08/15/22 Rx (Voltaren Arthritis Pain) mupirocin 2 % topical ointment 1 applic topical BID #15 grams 04/01/22 08/16/22 08/15/22 Rx blood sugar diagnostic (Blood #50 ea 04/25/22 08/15/22 08/15/22 Rx Glucose Test strips) blood-glucose meter #1 ea 04/25/22 08/15/22 08/15/22 Rx lancets (Comfort Lancets) #100 ea 04/25/22 08/15/22 08/15/22 Rx atorvastatin 20 mg tablet 20 mg PO .QHS 30 days #30 tabs 06/08/22 08/16/22 08/15/22 Rx dulaglutide 1.5 mg/0.5 mL 1.5 mg (0.5 mL) SUBCUT .weekly #2 06/08/22 08/16/22 Unknown Rx subcutaneous pen injector mL (Trulicity) lactulose 20 gram/30 mL oral 20 g (30 mL) PO BID PRN 06/08/22 08/16/22 08/15/22 Rx solution constipation 30 days #1,800 mL metformin 500 mg tablet,extended 1,000 mg PO DAILY #60 tabs 06/08/22 08/16/22 08/15/22 Rx release 24 hr tadalafil 20 mg tablet (Cialis) 20 mg PO DAILY PRN sexual activity 06/08/22 08/16/22 08/09/22 Rx #7 tabs albuterol sulfate 90 mcg/actuation 2 puff inhalation 6XD PRN 08/02/22 08/16/22 08/16/22 Rx aerosol inhaler (Ventolin HFA) shortness of breath or wheezing #8.5 grams fluticasone fur. 200 mcg-umeclid 1 inh inhalation Q24H #60 ea 08/02/22 08/16/22 08/16/22 Rx 62.5 mcg-vilant 25 mcg inhalat.powder (Trelegy Ellipta) promethazine-DM 6.25 mg-15 mg/5 mL 5 - 10 ml PO Q6H PRN cough #200 mL 08/02/22 08/16/22 Unknown Rx oral syrup NEBULIZER MACHINE AND TUBING #1 ea 08/08/22 08/15/22 08/15/22 Rx SUPPLIES OVERNIGHT AT HOME SLEEP STUDY #1 ea 08/08/22 08/15/22 08/15/22 Rx OXYGEN AT 2 LITERS PER N/C #1 ea 08/08/22 08/15/22 08/15/22 Rx CONTINUOUS ipratropium 0.5 mg-albuterol 3 mg 3 ml inhalation QID PRN shortness 08/08/22 08/16/22 08/16/22 Rx (2.5 mg base)/3 mL nebulization of breath or wheezing #180 mL soln acetaminophen 325 mg capsule 325 mg PO QID PRN Pain 08/15/22 08/16/22 08/15/22 History (Tylenol) guaifenesin 1,200 mg tablet, 1,200 mg PO Q12H PRN congestion 08/15/22 08/16/22 08/15/22 History extended release 12 hr (Mucinex) ibuprofen 600 mg tablet 600 mg PO Q6H PRN Pain 08/15/22 08/16/22 08/14/22 History Allergies Allergy/AdvReac Type Severity Reaction Status Date / Time codeine Allergy ALGY-Rash Verified 08/16/22 05:57 PFSH Anesthesia Medical History Abdominal pain Anxiety Caries COPD (chronic obstructive pulmonary disease) Diabetes mellitus with hyperglycemia, without long-term current use of insulin Erectile dysfunction GERD (gastroesophageal reflux disease) History of IA (myocardial infarction) Hyperlipidemia Hypertension Hypogonadism Mass of upper lobe of right lung Uncontrolled diabetes mellitus Surgical History History of appendectomy History of colonoscopy (~12/2019) History of total shoulder replacement Right Family History Other Cancer Diabetes Heart disease Hypertension Social History Smoking and tobacco status: current every day smoker cigarettes Packs smoked per day: 1 Years cigarettes smoked: 49 [ Other cigarette details: Started at age 8] Second hand smoke exposure: Yes Smoking risk assessment/counseling performed?: No Alcohol intake: current Alcohol intake frequency: holidays/special occasions only Desire information about alcohol rehabilitation?: No Counseling given: No Desire information about substance/drug rehabilitation?: No Counseling given: No Adopted: No Caregiver/support person: No Lives independently: Yes Household members: family Housing: House Marital status: Number of children: 23 Number of grandchildren: 19 service: No Current occupational status: disabled History of recent travel: No Current gender identity: Male Data Anesthesia Cardiac Studies: No Data to Display
[2022-08-16] MEDS: albuterol 2.5 mg/3 mL Neb INHALATION (06:50)
[2022-08-16 07:05] LABS: Glucose Point of Care 338 mg/dL (70-110)
--- NOTE | 2022-08-16 07:10 | W.PM.OPSUD ---
Surgery/Procedure H&P Update DATE OF PROCEDURE: August 16, 2022 DATE H&P PERFORMED: 08/15/22 CHANGES TO PREVIOUS DOCUMENTATION: nONE - MILD EXPIRATORY WHEEZE - WILL GIVE 1 NEB TREATMENT WITH ALBUTEROL PREOP DIAGNOSIS: Change in bowel habit PRIMARY INDICATION FOR PROCEDURE: SUSPECTED LUNG MALIGNANCY PLANNED PROCEDURE: Operation Date: 08/16/22 07:00 Proposed Procedures p ION Bronchoscopy with EBUS 55634, 36688, 29327, 74089, 68326, 92662, 23416, 98067,84241, 61643,R91.8(Not Applicable) - Yariel Rocha MD s Ebus(Not Applicable) - Yariel Rocha MD
--- NOTE | 2022-08-16 07:18 | SC_ITS ---
WS: [id number] C-ARM RADIOGRAPHS CHEST; 3 IMAGES HISTORY: for ion COMPARISON: None available. Intraoperative imaging during bronchoscopy by Dr. Rocha. SC/C-arm FL for Bronchoscopy IMPRESSION: Intraoperative imaging during bronchoscopy.
[2022-08-16] MEDS: lidocaine 1% INJ 20 mL XX (07:22)
[2022-08-16 08:09] LABS: Cyto Order Verification Order Verified
[2022-08-16 08:15] LABS: Bronch Source Right Upper Lobe
[2022-08-16 08:24] LABS: Apprearance, Bronch Wash Bloody (CLEAR); Color, Bronc Wash Red
[2022-08-16] MEDS: EPINEPHrine 1 mg/mL INJ XX (08:32)
--- NOTE | 2022-08-16 08:41 | XR_ITS ---
WS: [id number] PORTABLE CHEST HISTORY: POST ION COMPARISON: Chest CT 08/04/2022 and prior radiograph 11/08/2020 Mild volume loss in the RIGHT thorax. Similar to the prior study 08/04/2022. Dense consolidation and m ass in the RIGHT upper lobe is reidentified without significant change. Increase within the consolida tion and interstitial/reticular thickening in the RIGHT lower lobe. There is also a small RIGHT pleur al effusion. There is pleural thickening which is probably fluid. Some of the changes may be related to the biopsy with some bleeding. Diffuse interstitial thickening is thought to be lymphangitic sprea d of tumor. No pneumothorax identified. The LEFT lung remains clear. Cardiac size: Normal. Mediastinum/Aorta: Increased soft tissue thickening at the RIGHT hilum and inferior RIGHT paratrachea l region. Noted to be lymph nodes and neoplasm on a recent CT. No osseous abnormality seen. XR/XR chest 1V portable 07390 IMPRESSION: 1. Increase in the consolidation and reticulation in the RIGHT lower lobe sinc e the recent chest CT. May be due to some bleeding postbiopsy. 2. No change in the RIGHT upper lobe neoplasm. 3. No pneumothorax. 4. No midline shift.
--- NOTE | 2022-08-16 08:45 | PM.OP ---
Operative Report Date of procedure: August 16, 2022 Pre-op diagnosis: Preop Diagnosis Right upper lobe lesion Procedure done: 47187 Dx Bronchoscope w/Washings or airway inspection 72389 Bx Bronchoscope w/Brushings or protected brushings 47568 Dx Bronchoscope w/BAL 64234 Bronch with computer image guided Navigational Bronchoscopy 04724 Bronchoscopy w/Transbronchial lung biopsy(s), single lobe 94411 Bronchoscopy w/Transbronchial needle aspiration biopsy(s), tracheal, main stem, and/or lobar bronchus 00099 Bronchoscopy w/ therapeutic aspiration of the tracheobronchial tree (clearance of airway secretions, removal of mucus plugs) 70831 EBUS Sampling 1/2 nodes 80565 EBUS Diag or Interven Peripheral lesion (radial EBUS) Surgeon: Yariel Rocha MD [facility] Brief History: Mr. Wes Edward is a 57-year-old male referred by Ms. Kassy Ashley nurse practitioner for concerning lesions in CT chest. Patient is a current smoker, 1 ppd X 49 years. Started at age 8.? Continues to smoke half pack per day. Patient was apparently complaining of stomach pain, nausea and constipation and had a CT abdomen pelvis 07/21/2022 which showed nodular interstitial thickening at lung base suspicious for lymphangitic spread of tumor versus pneumonia with small effusion.? There is also right upper lobe mass suspicious for neoplasm which was described on previous CT 02/04/2021.? Indeterminate 9 mm low-attenuation nodule in the liver suspicious for metastasis. Subsequently a CT chest was obtained on 08/04/2022 showed larger 3 cm spiculated nodule in the right upper lobe consistent with lung malignancy (it was 2.46 cm on 02/05/2020 CT chest and 2 cm on 01/23/2019).? Upon review of records January 2019-he was admitted to hospital for chest pains, lightheadedness and had a CT chest that showed 2 cm mass-at that time patient was not interested in chemotherapy or radiation therapy and therefore he was not referred for bronchoscopy and biopsies.? During hospital discharge he was told to follow-up with primary care physician regarding the mass. Patient reported that he has been gradually losing weight over last couple of years but unable to quantify exactly.? Endorsed decreased appetite. Today patient is scheduled for Ion robotic assisted bronchoscopy guided biopsies of right upper lobe mass and endobronchial ultrasound-guided biopsies of mediastinal/hilar lymph nodes Procedure: 02482 Dx Bronchoscope w/Washings or airway inspection 67350 Bx Bronchoscope w/Brushings or protected brushings 21841 Dx Bronchoscope w/BAL 32375 Bronch with computer image guided Navigational Bronchoscopy 27234 Bronchoscopy w/Transbronchial lung biopsy(s), single lobe 22328 Bronchoscopy w/Transbronchial needle aspiration biopsy(s), tracheal, main stem, and/or lobar bronchus 44192 Bronchoscopy w/ therapeutic aspiration of the tracheobronchial tree (clearance of airway secretions, removal of mucus plugs) 14211 EBUS Sampling 1/2 nodes 76652 EBUS Diag or Interven Peripheral lesion (radial EBUS) Indication: Description of the procedure: The procedure was explained to the patient and the consent was obtained. The patient was brought to the OR. Anesthesia: The patient underwent endotracheal intubation for general anesthesia. Local anesthesia: The Anastasia, right and left mainstem bronchi were anesthetized with 1% lidocaine, 3 mL. Following induction of general anesthesia, the flexible bronchoscope used for initial inspection (70293) and airway clearance. The scope was advanced through the ET tube. The lower trachea mucosa appeared normal, no endotracheal lesion was seen. The anastasia was sharp. The anastasia, the right and left mainstem bronchi are anesthetized with 1% lidocaine. In a systematic manner bilateral bronchial tree was then examined. The bronchoscope was then introduced into the right mainstem bronchus. The right upper lobe, right middle lobe and right lower lobe bronchi were examined up to the third subsegmental level and edematous mucosa identified in all segments more so in right lower lobe and middle lobe. Also noted few very small nodular lesions on the proximal bronchus intermedius mucosa. There were some mucus secretions which were suctioned right away and right upper lobe and lower lobe (85736). The bronchoscope was advanced into the left mainstem bronchus. The mucosa appeared normal with no endobronchial lesions. The left upper lobe, lingula and left lower lobe bronchi were examined up to the third subsegmental level and no abnormalities were identified. Mucosa appeared normal with no endobronchial lesion, active bleeding or mucous plug. There were some mucus secretions in lower lobe-which were suctioned right away (08324). After initial inspection as well as airway clearance with flexible bronchoscope(86283), ION robotic assisted navigational bronchoscope (77220) was introduced-and right upper lobe lesion was accessed. After confirming the location with radial EBUS (28426), under the fluoroscopy guidance -we were able to obtain biopsies using fine-needle, forceps, Cytobrush. Bronchoscope was wedged into posterior segment of right upper lobe, 10 mL of saline was instilled, fluid return was 6 mL bronchoalveolar lavage (89515) was collected. The fluid was mixed with blood and specks of tissue. There was evidence of grade 2 bleeding-cold saline was instilled and after making sure there is no active bleeding, ION robotic assisted navigational bronchoscope was retracted and Endobronchial ultrasound (56158) was introduced for lymph node staging. Endobronchial ultrasound (EBUS )was introduced and did surveillance of mediastinal and hilar lymph nodes. Identified a large lymph node at station 11 R and station 4. Fine-needle aspiration biopsies (09901) were performed from station 11 R and station 4R.There was some evidence of bleeding-diluted epinephrine was instilled. EBUS was retracted, and reintroduced diagnostic bronchoscope and there was some evidence of grade 2 bleeding which was controlled with diluted epinephrine. After making sure there is no active bleeding bronchoscope was retracted and procedure terminated. Samples: A. right upper lobe lesion 1. Total 3 passes were made using needle aspiration(84552); 1 pass used for touch prep - reported positive for malignancy; rest of the material was placed in formalin for histopathology 2.Targeting the same area 3 passes were made using forceps (45309); 1 pass used for touch prep - reported negative for malignancy; rest of the material was placed in formalin for histopathology 3. Targeting the same area 1 pass was made with Cytobrush (08395) and material placed in formalin for histopathology review. 4. Bronchoalveolar lavage (38808) from right upper lobe sent for cytology, cell count, cultures A. Station 11 R -EBUS FNAC 1. Total 3 passes were made using needle aspiration(49563); 1 pass used for touch prep - reported positive for malignancy; rest of the material was placed in formalin for histopathology B. Station 4R-EBUS FNA C 1. Total of 3 passes were made using needle aspiration(11729); 1 pass used for touch prep - reported positive for malignancy; rest of the material was placed in formalin for histopathology Complications: None.The patient was extubated and brought to the PACU in stable condition. Postprocedure chest x-ray: No evidence of pneumothorax Disposition: Patient can be discharged home in stable condition. Pt, and his accompanying family are aware that I am going to call them to update final biopsy results once available.
[2022-08-16 08:57] LABS: Glucose Point of Care 324 mg/dL (70-110)
[2022-08-16] MEDS: albuterol 2.5 mg/3 mL Neb (09:05)
--- NOTE | 2022-08-16 09:06 | PC.NURSE ---
SaO2 upper 80's low 90s. Dr. Sprague ordered breathing treatment. Administered as ordered
--- NOTE | 2022-08-16 09:12 | PC.NURSE ---
SaO2 inproved post breathing tx. Coughing up blood tinged sputum
--- NOTE | 2022-08-16 09:15 | PC.NURSE ---
chest xray completed. Reviewed by Dr Sprague @ bedside
[2022-08-16 09:55] LABS: Total Cells Counted Bronch 200
--- NOTE | 2022-08-16 12:27 | ANE.PACU2 ---
Inpatient post-anesthesia follow up: Airway intact: Yes Vital signs: Temperature 97.2 F Pulse Rate 115 Respiratory Rate 18 Blood Pressure 109/72 Pulse Oximetry 93 Oxygen Delivery Me thod Nasal Cannula Oxygen Flow Rate 3 Fraction of Inspir ed Oxygen Hydration adequate: Yes Nausea and vomiting: No Pain level: 1 Mental status: Baseline
[2022-08-25 10:03] LABS: PD-L1 (Clone 22C3) by IHC BBPL See Report
== END 2022-08-16 09:50 | disposition home or self-care (01) ==
PROVIDERS: PCP Nurse Practitioner Family; Visit Provider Internal Medicine Pulmonary Disease
PROC: 0BJ08ZZ Inspection of Tracheobronchial Tree, Via Natural or Artificial Opening Endoscopic (ICD-10-PCS; CPT 31622; principal; 2022-08-16 07:00)
PROC: BB4BZZZ Ultrasonography of Pleura (ICD-10-PCS; 2022-08-16 07:00)
DX: C34.11 Malignant neoplasm of upper lobe, right bronchus or lung (principal); F17.210 Nicotine dependence, cigarettes, uncomplicated; Z79.84 Long term (current) use of oral hypoglycemic drugs; F41.9 Anxiety disorder, unspecified; J44.9 Chronic obstructive pulmonary disease, unspecified; E11.65 Type 2 diabetes mellitus with hyperglycemia; I25.2 Old myocardial infarction; K21.9 Gastro-esophageal reflux disease without esophagitis; E78.5 Hyperlipidemia, unspecified; I10 Essential (primary) hypertension
CPT/HCPCS: 31623; 31624; 31627; 31628; 31629; 31645; 31652; 31654; 36416; 71045; 76000; 80503; 82962; 87070; 87205; 88305; 88341; 88342; 89050; 93005; 94640; J0171; J2370; J2405; J2704; J3010; J3490; J7030; J7613

== ENCOUNTER 2022-08-29 15:42 | Oncology outpatient (recurring) (ONCR) | payer MEDICARE, MEDICAID, SELFPAY | END 2022-09-20 23:59 | disposition home or self-care (01) | PROVIDERS: PCP Nurse Practitioner Family; Visit Provider Internal Medicine Hematology & Oncology | DX: C34.11 Malignant neoplasm of upper lobe, right bronchus or lung (principal); C78.7 Secondary malignant neoplasm of liver and intrahepatic bile duct; C78.02 Secondary malignant neoplasm of left lung; J90 Pleural effusion, not elsewhere classified; K76.0 Fatty (change of) liver, not elsewhere classified; F17.210 Nicotine dependence, cigarettes, uncomplicated; Z79.899 Other long term (current) drug therapy | CPT/HCPCS: 99204 ==

== ENCOUNTER 2022-09-01 12:24 | Outpatient (CLI) | payer MEDICARE, MEDICAID, SELFPAY | END 2022-09-01 12:25 | disposition home or self-care (01) | LOC: RT 12:24 | PROVIDERS: PCP Nurse Practitioner Family; Visit Provider Internal Medicine Pulmonary Disease | DX: R91.8 Other nonspecific abnormal finding of lung field (principal); R09.02 Hypoxemia; J44.9 Chronic obstructive pulmonary disease, unspecified; F17.200 Nicotine dependence, unspecified, uncomplicated | CPT/HCPCS: 94060; 94729; J7613 ==

== ENCOUNTER 2022-09-05 07:46 | Outpatient (CLI) | payer MEDICARE, MEDICAID, SELFPAY ==
[2022-09-05] MEDS: gadobenate dimeglumine 20 mL vial IV (08:37)
--- NOTE | 2022-09-05 08:45 | MR_ITS ---
WS: [id number] MRI HEAD WITH CONTRAST TECHNIQUE: Sagittal T1, T2 axial, T2 axial FLAIR, axial susceptibility weighted imaging, axial diffus ion weighted images, and coronal T2 images were obtained. Pre and post-T1 axial and post T1 coronal i mages. ADC and FSPGR images. CLINICAL INFORMATION: Follow up COMPARISON: CT 2014 FINDINGS: No evidence of restricted diffusion to suggest acute ischemia. Ventricular system and basal cisterns are patent. No hemosiderin on susceptibly weighted images. Normal optic chiasm and pituitary infundib ulum. Normal cavernous sinuses and Meckel's cave. No abnormal gadolinium enhancement. No evidence of enhancing intracranial metastatic disease. Inciden poncho benign venous angioma RIGHT parasagittal parietal lobe. Normal dural venous sinuses. Mild small vessel changes. Mild parenchymal volume loss. Normal posterior fossa. Normal vascular flow voids at the skull base. No extra-axial fluid collections. No evidence of mass or mass effect. Paran ru sinuses and mastoid air cells are well aerated. MR/MR head wo/w con [id number] IMPRESSION: 1. No evidence of enhancing intracranial metastatic disease. 2. No restricted diffusion to suggest acute ischemia. 3. Mild small vessel changes. Mild parenchymal volume loss. 4. No other suspicious findings.
== END 2022-09-05 07:47 | disposition home or self-care (01) ==
LOC: RAD 07:46
PROVIDERS: PCP Nurse Practitioner Family; Visit Provider Internal Medicine Hematology & Oncology
DX: R91.8 Other nonspecific abnormal finding of lung field (principal)
CPT/HCPCS: 70553; A9577

== ENCOUNTER 2022-09-24 06:12 | Outpatient (CLI) | payer MEDICARE, MEDICAID, SELFPAY ==
--- NOTE | 2022-09-24 | PETR_ITS ---
PROCEDURE INFORMATION: Exam: PET/CT Skull Base to Mid-thigh Exam date and time: 09/24/2022 9:19 AM Age: 57 years old Clinical indication: Hepatomegaly. Abnormal findings on diagnostic imaging. LABS AND CLINICAL REPORTS: Glucose: 118 mg/dl Treatment strategy for malignancy (PET staging): Initial Staging (PI) TECHNIQUE: Imaging protocol: Following at least four-hour fasting and following the injection of F-18-FDG, low dose CT images were obtained. Then, PET images were obtained. Attenuation corrected images were constructed using the CT scan. Fused images of PET and CT were reviewed. The standardized uptake values (SUV) reported below are maximum values within a region of interest, expressed in gm/ml. Exam includes orbital meatal line to mid-thigh. Radiopharmaceutical: 12.71 mCi F-18 FDG (Fluorodeoxyglucose), IV. Time of imaging post radiopharmaceutical administration: 48.6 minutes. Injection site: Not specified. COMPARISON: 1. XR chest 08/16/2022. 2. CT chest with contrast 08/04/2022. 3. CT abdomen pelvis with contrast 07/21/2022. FINDINGS: Brain: Visualized brain has normal physiologic uptake. Pharynx: Increased FDG avidity in both tonsils. SUV max in the right tonsil is 6.4. SUV max in the left tonsil is 5.2. It is nonspecific and most likely infectious/inflammatory. Larynx: No abnormal uptake. Lungs, pleura and trachea: Dense consolidation in the right middle and right lower lobes is markedly FDG avid. It is 12 x 15 x 7 cm. Its SUV max is 11.6, which is consistent with a mixture of malignant tumor and postobstructive infection. Irregular soft tissue masses in the anterior and posterior segments of the right upper lobe are consistent with malignancy. They have SUVs max of 7.8 and 6.2. A moderate right pleural effusion is 4.0 cm in depth. A pleural metastasis at the posteroinferior right hemithorax has an SUV max of 7.2. It is 5.3 x 1.7 x 2.6 cm (TR x AP x CC) (image 4:74). A small left pleural effusion is 1.0 cm in depth. Calcifications in both lungs, both pulmonary kaylin and mediastinum are consistent with remote granulomatous disease. Heart: Heart size is normal. Mediastinal space: No abnormal uptake. Liver: No abnormal uptake. No hepatomegaly. Gallbladder and bile ducts: No abnormal uptake. Pancreas: No abnormal uptake. Spleen: No abnormal uptake. No splenomegaly. Adrenal glands: No abnormal uptake. Kidneys and ureters: Normal physiologic uptake. Benign simple appearing 1.4 cm cyst at the lateral mid left kidney is not FDG avid. Its density is 1 HU. Stomach and bowel: Diffuse marked FDG avidity in the colon is probably benign/physiologic because there is no definite corresponding CT abnormality. SUV max in the proximal ascending colon is 15.0. SUV max in the hepatic flexure of the colon is 14.2. SUV max in the mid transverse colon is 11.0. If the patient takes metformin (Glucophage) for diabetes, then the increased colonic uptake would be expected pharmacologic effect. Colitis or colon cancer cannot be confidently excluded. Redundant sigmoid colon. Vasculature: No abnormal uptake. Lymph nodes: A malignant left hilar mass/lymphadenopathy is 3.2 x 5.6 x 5.0 cm (TR x AP x CC) (TR x AP x CC). It has an SUV max of 8.7. An FDG avid right internal mammary lymph node is 1.3 x 1.0 x 1.0 cm. Its SUV max is 9.0. Malignant retroperitoneal lymphadenopathy down to the L4 level has an SUV max of 8.7 (series 4, image 103). Para-aortic mediastinal lymphadenopathy has an SUV max of 5.3. Bones/joints: No metabolically active areas. Soft tissues: No metabolically active areas. [id number] IMPRESSION: 1. Large dense consolidation/tumor in the right middle and right lower lobes is markedly FDG avid. Its SUV max is 11.6. Irregular soft tissue masses in the right upper lobe are also consistent with malignancy. 2. A moderate right pleural effusion is 4.0 cm in depth. A pleural metastasis at the posteroinferior right hemithorax has an SUV max of 7.2. 3. A malignant left hilar mass/lymphadenopathy is 3.2 x 5.6 x 5.0 cm. It has an SUV max of 8.7. 4. Malignant right internal mammary, mediastinal and retroperitoneal lymphadenopathy. 5. Diffuse marked FDG avidity in the colon is probably benign/physiologic because there is no definite corresponding CT abnormality. SUVs max range up to 15.0 in the ascending colon. If the patient takes metformin (Glucophage) for diabetes, then the increased colonic uptake would be expected pharmacologic effect. Colitis or colon cancer cannot be confidently excluded. Correlate clinically.
== END 2022-09-24 06:13 | disposition home or self-care (01) ==
LOC: RAD 09-26 06:13
PROVIDERS: PCP Nurse Practitioner Family; Visit Provider Nurse Practitioner Family
DX: R16.0 Hepatomegaly, not elsewhere classified (principal); R93.5 Abnormal findings on diagnostic imaging of other abdominal regions, including retroperitoneum
CPT/HCPCS: 78815; A9552

== ENCOUNTER 2022-10-04 12:54 | Oncology outpatient (recurring) (ONCR) | payer MEDICARE, MEDICAID, SELFPAY ==
[2022-10-04 13:14] LABS: Basophils % 0.3 %; Eosinophils # 0.1 10^3/uL (0.0-0.8); Eosinophils % 1.1 %; Hematocrit 51.8 % (42.0-52.0); Hemoglobin 17.3 g/dL (11.7-16.6); Lymphocytes # 1.9 10^3/uL (0.8-4.8); Lymphocytes % 16.2 %; Mean Corpuscular HGB Conc 33.4 g/dL (30.0-36.0); Mean Corpuscular Hemoglobin 28.1 pg (28.0-34.0); Mean Corpuscular Volume 84.2 fl (80-94); Monocytes # 0.6 10^3/uL (0.2-0.9); Monocytes % 4.9 %; Neutrophils # 8.99 10^3/uL (1.8-7.7); Neutrophils % 77.2 %; Nucleated Red Blood Cells % 0 %; Platelet Count 334 10^3/cmm (130-400); Red Blood Count 6.15 10^6/uL (4.1-5.3); Red Cell Distribution Width 13.5 % (12.1-15.1); White Blood Count 11.7 10^3/uL (4.0-10.0)
[2022-10-04 13:32] LABS: Alanine Aminotransferase 9 U/L (0-41); Albumin Level 3.3 g/dL (3.5-5.2); Alkaline Phosphatase 89 U/L (40-130); Anion Gap 14.1 (5-19); Aspartate Amino Transferase 10 U/L (0-40); Blood Urea Nitrogen 9 mg/dL (6-20); Calcium 9.3 mg/dL (8.5-10.5); Carbon Dioxide 28 mmol/L (22-29); Chloride 99 mmol/L (98-107); Globulin 3.2 g/dL (1.3-4.6); Glomerular Filtration Rate 138.4 mL/min (90-130); Glucose 277 mg/dL (65-115); Osmolality Calculated 293 mOsm/kg (285-295); Potassium 4.1 mmol/L (3.5-5.1); Sodium 137 mmol/L (136-145); Total Bilirubin 0.6 mg/dL (0.15-1.2); Total Protein 6.5 g/dL (6.6-8.7)
== END 2022-10-21 23:59 | disposition home or self-care (01) ==
PROVIDERS: PCP Nurse Practitioner Family; Visit Provider Internal Medicine Hematology & Oncology
DX: C34.11 Malignant neoplasm of upper lobe, right bronchus or lung (principal); C78.7 Secondary malignant neoplasm of liver and intrahepatic bile duct; C78.02 Secondary malignant neoplasm of left lung; J90 Pleural effusion, not elsewhere classified; K76.0 Fatty (change of) liver, not elsewhere classified; F17.210 Nicotine dependence, cigarettes, uncomplicated; C77.8 Secondary and unspecified malignant neoplasm of lymph nodes of multiple regions; R11.0 Nausea; Z79.899 Other long term (current) drug therapy; R73.9 Hyperglycemia, unspecified
CPT/HCPCS: 36415; 80053; 85025; 99214

== ENCOUNTER 2022-10-13 11:20 | Emergency (ER) | payer MEDICARE, MEDICAID, SELFPAY ==
[2022-10-13] VITALS (7 sets, daily range): BP systolic 95–105; BP diastolic 65–78; PULSE 105–115; RESP 13–19; O2SAT 92–98; BMI 25.6
--- NOTE | 2022-10-13 11:22 | ED_ITS ---
HPI - Abdominal Pain General: Chief Complaint: Abdominal Pain Stated Complaint: ABD PAIN Time Seen by Provider: 10/13/22 11:21 History of Present Illness: Mr. Edward is a 57-year-old gentleman with complex past medical history including lung cancer, COPD, chronic hypoxic respiratory f ailure, diabetes presenting to the emergency department due to abdominal pain. He reports 3 days of gradual onset symptoms with generalized abdominal aching and sharp pain. He reports associated constipation. He has had nausea but no vomiting. He also reports difficulty urinating. Overall course of symptoms has worsened. Worse with palpation and movement. No other specific changes in health, exacerbating, or alleviating factors identified. Onset (ago): day(s) Pain Consistency: constant Location: Diffuse Severity: moderate Quality: aching and sharp Radiation: none Migration to: no migration Exacerbating factors: movement Relieving factors: nothing Associated Symptoms: Reports constipation and nausea; Denies vomiting Review of Systems General: Reports: 10 or more systems reviewed and unremarkable except in HPI and below GI: Reports: nausea and constipation; Denies: vomiting PFSH ED PFSH: Medical History Abdominal pain Anxiety Caries COPD (chronic obstructive pulmonary disease) Diabetes mellitus with hyperglycemia, without long-term current use of insulin Erectile dysfunction GERD (gastroesophageal reflux disease) History of [place] (myocardial infarction) Hyperlipidemia Hypertension Hypogonadism Mass of upper lobe of right lung Primary adenocarcinoma of upper lobe of right lung Uncontrolled diabetes mellitus Surgical History History of appendectomy History of colonoscopy (~12/2019) History of total shoulder replacement Right Family History Other Cancer Diabetes Heart disease Hypertension Social History Smoking and tobacco status: current every day smoker cigarettes Packs smoked per day: 1 Years cigarettes smoked: 49 [ Other cigarette details: Started at age 8] Second hand smoke exposure: Yes Smoking risk assessment/counseling performed?: No Alcohol intake: current Alcohol intake frequency: holidays/special occasions only Desire information about alcohol rehabilitation?: No Counseling given: No Desire information about substance/drug rehabilitation?: No Counseling given: No Adopted: No Caregiver/support person: No Lives independently: Yes Household members: family Housing: House Marital status: Number of children: 23 Number of grandchildren: 19 service: No Current occupational status: disabled Current gender identity: Male Physical Exam Const: COMMON NORMALS: alert GENERAL APPEARANCE: cooperative and well developed HENMT: COMMON NORMALS: normocephalic and atraumatic HEAD & SCALP: normocephalic and atraumatic Eye: COMMON NORMALS: conjunctivae normal CONJUNCTIVA: Yes conjunctivae normal SCLERA: sclerae normal Neck/C-Spine: COMMON NORMALS: supple GENERAL: Yes trachea midline Resp: COMMON NORMALS: clear to auscultation bilaterally EFFORT & INSPECTION : Yes able to speak in complete sentences AUSCULTATION: clear to auscultation bilaterally Cardio: COMMON NORMALS: regular rate and regular rhythm RATE: regular rate RHYTHM: regular rhythm GI: COMMON NORMALS: Soft to palpation PALPATION: Yes Soft to palpation, Yes Tenderness to palpation present (GI), No Guarding due to palpation present (GI) and No Rigid due to palpation Extremity: GENERAL: Yes normal exam except as noted and No edema Neuro: COMMON NORMALS: moves all extremities SENSORIUM/ORIENTATION: Yes alert and No Orientation impaired Psych: COMMON NORMALS: mental status grossly normal and Normal thought process present THOUGHT PROCESS: Normal thought process present Course Vital Signs: Vital signs: Vital Signs Pulse Rate 110 H 10/13/22 14:48 Respiratory Rate 13 10/13/22 14:48 Blood Pressure 105/78 10/13/22 14:48 Pulse Oximetry 98 10/13/22 14:48 Oxygen Delivery Me thod 10/13/22 11:24 Oxygen Flow Rate 2 10/13/22 11:24 MDM - Abdominal Pain Medical Decision Making 57-year-old gentleman with complex past medical history presenting to the emergency department for abdominal pain. Exam as above. Abdominal tenderness with no evidence of acute surgical abdomen. He is nontoxic in appearance. Labs notable for mild leukocytosis, hemoconcentration improved from prior, mild hyponatremia without other acute electrolyte derangement. Urinalysis with some evidence of dehydration. Nitrate and leukocyte Estrace negative with 0-4 WBCs and no bacteria, unlikely to be urinary tract infection. CT demonstrates large right pleural effusion. Other findings noted, overall no clear etiology of patient's symptoms. Case discussed with Dr. Rocha, patient is appropriate for outpatient thoracentesis. I agree given patient's respiratory status currently. It is possible that pleural effusion is causing mild abdominal discomfort though overall location is not entirely consistent with this. Plan to treat constipation with MiraLAX. Strict return precautions discussed The results of ED evaluation were discussed with the patient including prescriptions and/or symptomatic cares (if applicable) including appropriate and responsible use, followup plan, and return precautions. The patient verbalized understanding and felt safe for discharge. Medical Records I reviewed the patient's medical records. Lab Data I reviewed the patient's lab results. 10/13/22 11:27 10/13/22 11:27 Labs/Radiology: Radiology Impressions Abdomen/Pelvis CT 10/13/22 11:36 IMPRESSION: 1. Very large right pleural effusion is markedly increased in size since 09/24/2022 and exerts mass effect on the right diaphragm and mediastinum. There is resultant complete atelectasis of the right lung. Probable malignant effusion. Consider therapeutic thoracentesis. 2. New small bladder calculi since 09/24/2022. No hydronephrosis or ureteral stones. 3. Incidental findings above. COMMENTS: Consistent with the [employer]'s Incidental Findings Committee white paper (J Am Jamil Radiol 2018): Any incidental renal lesion less than 1 cm or classified as too small to characterize, or any incidental cystic renal lesion characterized as simple-appearing, is likely benign. No follow-up imaging is recommended for these lesions per consensus recommendations based on imaging criteria. Laboratory Results WBC 11.7 10^3/uL (4.0-10.0) H 10/13/22 11:27 RBC 5.96 10^6/uL (4.1-5.3) H 10/13/22 11:27 Hgb 16.6 g/dL (11.7-16.6) 10/13/22 11:27 Hct 50.5 % (42.0-52.0) 10/13/22 11:27 MCV 84.7 fl (80-94) 10/13/22 11:27 MCH 27.9 pg (28.0-34.0) L 10/13/22 11:27 MCHC 32.9 g/dL (30.0-36.0) 10/13/22 11:27 RDW 13.5 % (12.1-15.1) 10/13/22 11:27 Plt Count 359 10^3/cmm (130-400) 10/13/22 11:27 MPV 9.2 fL (7.4-10.4) 10/13/22 11:27 Neut % (Auto) 76.7 % 10/13/22 11:27 Lymph % (Auto) 14.8 % 10/13/22 11: Gray % (Auto) 6.6 % 10/13/22 11: Eos % (Auto) 1.2 % 10/13/22 11:27 Baso % (Auto) 0.4 % 10/13/22 11:27 Neut # (Auto) 8.96 10^3/uL (1.8-7.7) H 10/13/22 11: Lymph # (Auto) 1.7 10^3/uL (0.8-4.8) 10/13/22 11: Gray # (Auto) 0.8 10^3/uL (0.2-0.9) 10/13/22 11: Eos # (Auto) 0.1 10^3/uL (0.0-0.8) 10/13/22 11: Baso # (Auto) 0.1 10^3/uL (0.0-0.1) 10/13/22 11: Nucleated RBC % (auto) 0 % 10/13/22 11: Nucleated RBCs # 0.0 /100WBC 10/13/22 11:27 Sodium 135 mmol/L (136-145) L 10/13/22 11:27 Potassium 4.0 mmol/L (3.5-5.1) 10/13/22 11:27 Chloride 98 mmol/L (98-107) 10/13/22 11:27 Carbon Dioxide 26 mmol/L (22-29) 10/13/22 11:27 Anion Gap 15.0 (5-19) 10/13/22 11:27 BUN 9 mg/dL (6-20) 10/13/22 11:27 Creatinine 0.7 mg/dL (0.7-1.2) 10/13/22 11:27 GFR Calculation 115.8 mL/min (90-130) 10/13/22 11:27 Glucose 180 mg/dL (65-115) H 10/13/22 11:27 Calculated Osmolality 283 mOsm/kg (285-295) L 10/13/22 11:27 Lactate 1.7 mmol/L (0.5-2.2) 10/13/22 11:27 Calcium 8.8 mg/dL (8.5-10.5) 10/13/22 11:27 Total Bilirubin 0.5 mg/dL (0.15-1.2) 10/13/22 11:27 AST 10 U/L (0-40) 10/13/22 11: ALT 8 U/L (0-41) 10/13/22 11:27 Alkaline Phosphatase 72 U/L (40-130) 10/13/22 11:27 Total Protein 6.2 g/dL (6.6-8.7) L 10/13/22 11: Albumin 2.8 g/dL (3.5-5.2) L 10/13/22 11: Globulin 3.4 g/dL (1.3-4.6) 10/13/22 11: Lipase 14 U/L (13-60) 10/13/22 11:27 Urine Color Yellow (Yellow) 10/13/22 14:35 Urine Appearance Clear (CLEAR) 10/13/22 14:35 Urine pH 5 (5-7) 10/13/22 14:35 Ur Specific Spangler 1.015 (1.005-1.030) 10/13/22 14:35 Urine Protein Trace (Negative) 10/13/22 14:35 Urine Glucose (UA) Trace (Normal) H 10/13/22 14:35 Urine Ketones 2+ (Negative) H 10/13/22 14:35 Urine Blood Neg (Negative) 10/13/22 14:35 Urine Nitrate Negative (Negative) 10/13/22 14:35 Urine Bilirubin 1+ (Negative) H 10/13/22 14:35 Urine Urobilinogen 1 mg/dL (Negative) H 10/13/22 14:35 Ur Leukocyte Esterase Negative (Negative) 10/13/22 14:35 Urine RBC None /hpf (0-2) 10/13/22 14:35 Urine WBC 0-4 /hpf (0-5) H 10/13/22 14:35 Ur Squamous Epith Cells None /hpf (0-5) 10/13/22 14:35 Amorphous Sediment Not Reportable 10/13/22 14:35 Urine Bacteria None /hpf (NONE) 10/13/22 14:35 Discharge Plan Discharge Patient Disposition: Home Clinical Impression: Abdominal pain, Constipation, Dehydration, Pleural effusion on right Condition: Stable Prescriptions: New oxycodone 5 mg tablet 5 mg PO Q4H PRN (Reason: pain) Qty: 10 0RF polyethylene glycol 3350 [Miralax] 17 gram powder in packet 17 g PO DAILY PRN (Reason: laxative effect) Qty: 100 0RF Rx Instructions: 1 to 3 times per day as needed for applesauce consistency bowel movements No Action lactulose 20 gram/30 mL solution 20 g PO BID PRN (Reason: constipation) 30 Days Qty: 1800 2RF atorvastatin 20 mg tablet 20 mg PO .QHS 30 Days Qty: 30 3RF metformin 500 mg tablet extended release 24 hr 1,000 mg PO DAILY Qty: 60 2RF (DME) OXYGEN AT 2 LITERS PER N/C CONTINUOUS See Rx Instructions .Route .MEDSUPPLY Qty: 1 0RF Rx Instructions: PLEASE PROVIDE PORTABLE CONSERVATIVE DEVICE, CONCENTRATOR, AND TUBING SUPPLIES ipratropium-albuterol 0.5 mg-3 mg(2.5 mg base)/3 mL solution for nebulization 3 ml inhalation QID PRN (Reason: shortness of breath or wheezing) Qty: 180 2RF (DME) NEBULIZER MACHINE AND TUBING SUPPLIES See Rx Instructions .Route .MEDSUPPLY Qty: 1 0RF Rx Instructions: PROVIDE TUBING SUPPLIES (DME) OVERNIGHT AT HOME SLEEP STUDY See Rx Instructions .Route .MEDSUPPLY Qty: 1 0RF Rx Instructions: As directed Mucinex 1,200 mg tablet extended release 12hr 1,200 mg PO Q12H PRN (Reason: congestion) Trulicity 1.5 mg/0.5 mL pen injector 1.5 mg SUBCUT .weekly Qty: 2 6RF Rx Instructions: dose increase promethazine 25 mg tablet 25 mg PO QID PRN (Reason: nausea and vomiting) Qty: 90 0RF sildenafil [Viagra] 100 mg tablet 100 mg PO DAILY PRN (Reason: sexual activity) Qty: 10 0RF Rx Instructions: 1/2 to 1 whole tab administer 30 minutes to 4 hours before activity Spiriva Respimat 2.5 mcg/actuation mist 2 puff inhalation DAILY 30 Days Qty: 4 6RF ketorolac 10 mg tablet 10 mg PO QID PRN (Reason: pain) 5 Days Qty: 20 0RF diclofenac sodium [Voltaren Arthritis Pain] 1 % gel 4 g topical QID Qty: 100 6RF mupirocin 2 % ointment 1 applic topical BID Qty: 15 1RF albuterol sulfate [Ventolin HFA] 90 mcg/actuation HFA aerosol inhaler 2 puff inhalation 6XD PRN (Reason: shortness of breath or wheezing) Qty: 8.5 0RF Trelegy Ellipta 200-62.5-25 mcg blister with device 1 inh inhalation Q24H Qty: 60 11RF Hold Instructions: Patient wants to try Spiriva (DME) Blood Glucose Test Strip See Rx Instructions .Route Qty: 50 5RF Rx Instructions: testing one to two times daily (DME) blood-glucose meter Misc See Rx Instructions .Route Qty: 1 0RF Rx Instructions: As directed (DME) lancets [Comfort Lancets] Misc See Rx Instructions .Route Qty: 100 1RF Rx Instructions: testing one to two times daily insulin glargine 100 unit/mL (3 mL) insulin pen 25 unit SUBCUT BID Qty: 15 0RF Rx Instructions: must fill at [facility] (DME) pen needle, diabetic [Comfort EZ Pen [place]] 33 gauge x 5/32 needle See Rx Instructions .Route Qty: 100 0RF Rx Instructions: As directed ibuprofen 600 mg Tablet 600 mg PO Q6H PRN (Reason: Pain) acetaminophen [Tylenol] 325 mg Capsule 325 mg PO QID PRN (Reason: Pain) Farxiga 10 mg Tablet 10 mg PO DAILY Discharge Orders: Discharge ED (Routine); Ordered 10/13/22 Ordered By: Bill Marcos Referrals: Kassy Ashley, BREAKER ENGINEER [Primary Care Provider] - Discharge Diet: Advance as tolerated and Clear Liquid Discharge Activity: Increase activity as tolerated Patient Instructions: Constipation (ED), Abdominal Pain (ED), Opioid Safety, Pleural Effusion Activity Restrictions/Additional Instructions: Thank you for visiting the emergency department. You were seen and evaluated for abdominal pain and constipation. The exact cause of your symptoms is unclear however does not appear to need hospitalization at this time. I will prescribe MiraLAX and recommend that you take your lactulose. Please follow-up with pulmonology for your pleural effusion as planned. Return to the emergency department for uncontrolled symptoms or anything else that you are concerned about and feel needs emergency department evaluation. Coding Level of Care Code ED [employer] Operations Supervisor for Gilda Vu
--- NOTE | 2022-10-13 11:36 | CTR_ITS ---
PROCEDURE INFORMATION: Exam: CT Abdomen And Pelvis With Contrast Exam date and time: 10/13/2022 12:27 PM Age: 57 years old Clinical indication: Abdominal pain; Generalized; Prior surgery; Surgery date: 6+ months; Surgery type: Appy; Additional info: Abd pain, HX cancer, constipation TECHNIQUE: Imaging protocol: Computed tomography of the abdomen and pelvis with contrast. Radiation optimization: All CT scans at this facility use at least one of these dose optimization techniques: automated exposure control; mA and/or kV adjustment per patient size (includes targeted exams where dose is matched to clinical indication); or iterative reconstruction. Contrast material: OMNI 350; Contrast volume: 100 ml; Contrast route: INTRAVENOUS (IV); REPORTING DATA: Count of CT and Cardiac NM exams in prior 12 months: This patient has received 3 known CTs and 0 known cardiac nuclear medicine studies in the 12 months prior to the current study. COMPARISON: 1. PT PET [facility] SUBSEQ [id number] 09/24/2022 9:[address] abdomen pelvis w con* [id number] 07/21/2022 2:45 PM RADIATION DOSE METRICS: Total DLP (mGy-cm): 896.14 FINDINGS: Limitations: Respiratory motion artifact limits assessment of the upper abdominal structures. Lungs: Very large simple right pleural effusion with complete atelectasis of the right lung and depression of the right hemidiaphragm. Slight leftward mediastinal shift. Trace left pleural effusion. Heart: Small pericardial effusion. Liver: There is geographic focal hypoattenuation of the liver parenchyma along the distal portion of the fissure for the falciform ligament consistent with focal fat infiltration. No liver mass. Gallbladder and bile ducts: The gallbladder is normal. There is no biliary dilation. Pancreas: The pancreas is unremarkable. Spleen: The spleen is unremarkable. Adrenal glands: The adrenal glands are unremarkable. Kidneys and ureters: There are simple cysts in both kidneys. There is no hydronephrosis or ureteral dilation. Stomach and bowel: The stomach is decompressed, preventing meaningful evaluation of wall thickness. The small bowel is nondilated. The colon is unremarkable. Appendix: The appendix is not visible. Intraperitoneal space: There is no free air or significant intraperitoneal free fluid. Vasculature: There is moderate aortic atherosclerotic disease. The portal, splenic and superior mesenteric veins are patent. Lymph nodes: Left hilar lymphadenopathy and/or pulmonary mass is similar to the findings on 09/24/2022. Multiple partially calcified mediastinal lymph nodes. There are mildly enlarged upper retroperitoneal, and reid hepatis lymph nodes. No mesenteric, pelvic or inguinal lymph node enlargement. Urinary bladder: There are two 5 mm high attenuation foci in the dependent portion of the urinary bladder adjacent to the right ureterovesical junction which are new since 09/24/2022. Reproductive: The prostate and seminal vesicles are unremarkable. Bones/joints: There is mild degenerative disease in the lumbar spine. The pelvis and hips are unremarkable. Soft tissues: The abdominal wall is intact. CT/CT abdomen pelvis w con* [id number] IMPRESSION: 1. Very large right pleural effusion is markedly increased in size since 09/24/2022 and exerts mass effect on the right diaphragm and mediastinum. There is resultant complete atelectasis of the right lung. Probable malignant effusion. Consider therapeutic thoracentesis. 2. New small bladder calculi since 09/24/2022. No hydronephrosis or ureteral stones. 3. Incidental findings above. COMMENTS: Consistent with the [employer]'s Incidental Findings Committee white paper (J Am Jamil Radiol 2018): Any incidental renal lesion less than 1 cm or classified as too small to characterize, or any incidental cystic renal lesion characterized as simple-appearing, is likely benign. No follow-up imaging is recommended for these lesions per consensus recommendations based on imaging criteria.
[2022-10-13] MEDS: fentaNYL 50 mcg/mL INJ 2mL IVP (11:56)
[2022-10-13] MEDS: sodium chloride 0.9% 500 ML IV (11:57)
[2022-10-13 12:21] LABS: Lactate (Lactic Acid level) 1.7 mmol/L (0.5-2.2)
[2022-10-13 12:22] LABS: Alanine Aminotransferase 8 U/L (0-41); Albumin Level 2.8 g/dL (3.5-5.2); Alkaline Phosphatase 72 U/L (40-130); Aspartate Amino Transferase 10 U/L (0-40); Blood Urea Nitrogen 9 mg/dL (6-20); Calcium 8.8 mg/dL (8.5-10.5); Carbon Dioxide 26 mmol/L (22-29); Chloride 98 mmol/L (98-107); Globulin 3.4 g/dL (1.3-4.6); Glomerular Filtration Rate 115.8 mL/min (90-130); Glucose 180 mg/dL (65-115); Lipase 14 U/L (13-60); Osmolality Calculated 283 mOsm/kg (285-295); Sodium 135 mmol/L (136-145); Total Bilirubin 0.5 mg/dL (0.15-1.2); Total Protein 6.2 g/dL (6.6-8.7)
[2022-10-13 12:24] LABS: Basophils # 0.1 10^3/uL (0.0-0.1); Basophils % 0.4 %; Eosinophils # 0.1 10^3/uL (0.0-0.8); Eosinophils % 1.2 %; Hematocrit 50.5 % (42.0-52.0); Hemoglobin 16.6 g/dL (11.7-16.6); Lymphocytes # 1.7 10^3/uL (0.8-4.8); Lymphocytes % 14.8 %; Mean Corpuscular HGB Conc 32.9 g/dL (30.0-36.0); Mean Corpuscular Hemoglobin 27.9 pg (28.0-34.0); Mean Corpuscular Volume 84.7 fl (80-94); Mean Platelet Volume 9.2 fL (7.4-10.4); Monocytes # 0.8 10^3/uL (0.2-0.9); Monocytes % 6.6 %; Neutrophils # 8.96 10^3/uL (1.8-7.7); Neutrophils % 76.7 %; Nucleated Red Blood Cells % 0 %; Platelet Count 359 10^3/cmm (130-400); Red Blood Count 5.96 10^6/uL (4.1-5.3); Red Cell Distribution Width 13.5 % (12.1-15.1); White Blood Count 11.7 10^3/uL (4.0-10.0)
[2022-10-13] MEDS: iohexol 350 mg/mL 500 mL Btl (per mL) IV (12:30)
[2022-10-13 15:20] LABS: Glucose Urine UA Trace (Normal); Protein Urine Trace (Negative); Specific Gravity, Urine 1.015 (1.005-1.030); Urine Appearance Clear (CLEAR); Urine Color Yellow (Yellow); pH Urine 5 (5-7)
[2022-10-13 15:21] LABS: Add Urine Culture? No; Add Urine Microscopic? YES; Bilirubin Urine 1+ (Negative); Blood Urine Neg (Negative); Ketones Urine 2+ (Negative); Leukocyte Esterase Urine Negative (Negative); Nitrate Urine Negative (Negative); Urobilinogen Urine 1 mg/dL (Negative); WBC Urine 0-4 /hpf (0-5)
== END 2022-10-13 14:43 | disposition home or self-care (01) ==
PROVIDERS: Emergency Provider Emergency Medicine; PCP Nurse Practitioner Family
DX: K59.00 Constipation, unspecified (principal); J90 Pleural effusion, not elsewhere classified; E86.0 Dehydration; Z79.82 Long term (current) use of aspirin; Z79.85 Long-term (current) use of injectable non-insulin antidiabetic drugs; Z79.84 Long term (current) use of oral hypoglycemic drugs; J44.9 Chronic obstructive pulmonary disease, unspecified; E11.9 Type 2 diabetes mellitus without complications; I25.2 Old myocardial infarction; E78.5 Hyperlipidemia, unspecified; I10 Essential (primary) hypertension; F17.210 Nicotine dependence, cigarettes, uncomplicated
CPT/HCPCS: 51798; 74177; 80053; 81001; 83605; 83690; 85025; 96374; 99285; J3010; J7040; Q9967

== ENCOUNTER 2022-10-18 07:52 | Day surgery (SDC) | payer MEDICARE, MEDICAID, SELFPAY ==
[2022-10-14 13:56] VITALS: BMI 25.4
[2022-10-18 08:05] VITALS: BP 100/69; PULSE 112; RESP 22; TEMP 36.1; O2SAT 92
--- NOTE | 2022-10-18 09:02 | PC.NURSE ---
Patient requested consent signature by . witnessed by Dr. Rocha
--- NOTE | 2022-10-18 09:31 | XR_ITS ---
WS: [id number] Exam: XR chest 1V portable [id number] Date/Time of Exam: 10/18/2022 9:31 AM Reason For Exam: post thoracentesis Comparison 08/16/2022. There is total white out of the right pleural cavity. The left lung is fully inflated with vascular r edistribution. No infiltrates are seen in the left lung. The right heart is obscured but heart size i s probably within normal limits. Regional bony structures are intact. The thoracic dextroscoliosis. XR/XR chest 1V portable [id number] IMPRESSION: 1. Total whiteout of the right pleural cavity which might indicate large volum e pleural effusion. Obstruction of the right mainstem bronchus could also have this appearance.
--- NOTE | 2022-10-18 09:41 | PM.OUTPTPROC ---
Outpatient Procedures Thoracentesis Consent signed and on chart: Yes Time Out Performed: Yes Procedure: therapeutic thoracentesis and diagnostic thoracentesis Location: Right Local anesthetic used: lidocaine 1% Bedside ultrasound used: yes, pleural effusion confirmed and location marked and yes, real-time guidance Preparation: sterile prep and drape and 10 blade used to make allyssa in skin Amount of fluid obtained (mL): 2,250 Fluid: bloody and sent to lab for analysis Post-procedure chest x-ray ordered: Yes Estimated blood loss (mL): 5 Patient Tolerated Procedure: well and no complications Procedure Note: Pulmonary & Critical Care Medicine Procedure - Ultrasound guided Thoracentesis Procedure: CPT code 28490 thoracentesis, needle or catheter, aspiration of the pleural space; with imaging guidance Indication: Worsening right pleural effusion. C56.2 Vertical Contour Band Saw Operator(s): Yariel Rocha MD [facility] Clinical history: Mr. Wes Edward is a 57-year-old male, chronic smoker, recently diagnosed with metastatic moderately differentiated lung adenocarcinoma with PET active metastatic retroperitoneal lymphadenopathy-has evidence of significant right pleural effusion. Recently came to emergency room on 10/13/2022. He was requiring 2 L supplemental oxygen and reports difficulty breathing and sleeping. He is scheduled for outpatient therapeutic thoracentesis today. Technique: The study was performed in an ACR accredited facility. Medication reconciliation form reviewed and any changes related this procedure resolved. Report: The procedure for thoracentesis was explained to the patient including the risks, benefits and possible complications. The patient was given the opportunity to ask questions, wished to proceed, and signed the written informed consent form. Using ultrasound guidance, a safe route of access was identified into the right pleural space. The site was then prepped and draped using maximal sterile barrier technique. The 1% lidocaine was used for local anesthetic. With sonographic guidance, a 6 Bengali thoracentesis catheter was placed with return of 5 cc hemorrhagic pleural fluid. The catheter was slipped into the pleural cavity and approximately 2.3 L of sanguinous pleural fluid was removed. The patient tolerated the procedure well without any immediate complications. Impression: 1. Successful ultrasound-guided right thoracentesis with removal of approximately 2.3L of sanguinous pleural fluid. ICD-10 code-J90 pleural effusion, not elsewhere classified
[2022-10-18 10:53] LABS: Apprearance, Body Fluid CLOUDY; Color, Body Fluid AMBER; Cyto Order Verification Order Verified
[2022-10-18 11:01] LABS: Body Fluid Polynuclear #Cells 0.023; Body Fluid WBC 325 /uL; Monocytes # Body Fluid 0.302
[2022-10-18 11:41] LABS: Albumin Body Fluid 2.4 g/dL; Creatinine Body Fluid 0.54 (0.7-1.2)
[2022-10-18 11:42] LABS: LDH Pleural Fluid 340 U/L; Total Protein Pleural Fluid 3.8 g/dL; Triglycerides, Pleural Fluid 29 mg/dL
== END 2022-10-18 09:55 | disposition home or self-care (01) ==
LOC: GILAB 07:54
PROVIDERS: PCP Nurse Practitioner Family; Visit Provider Internal Medicine Pulmonary Disease
PROC: (CPT 32554; principal; 2022-10-18 09:00)
DX: J90 Pleural effusion, not elsewhere classified (principal)
CPT/HCPCS: 32554; 71045; 80503; 82042; 82150; 82570; 82945; 83615; 83986; 84157; 84478; 85014; 87070; 87075; 87205; 88112; 89050

== ENCOUNTER 2022-10-29 20:37 | Emergency (ER) | payer MEDICARE, MEDICAID, SELFPAY ==
[2022-10-29 20:42] VITALS: BP 106/74; PULSE 112; RESP 16; TEMP 36.8; O2SAT 92
--- NOTE | 2022-10-29 20:54 | XRR_ITS ---
PROCEDURE INFORMATION: Exam: XR Chest Exam date and time: 10/29/2022 9:02 PM Age: 57 years old Clinical indication: Dyspnea; Prior surgery; Surgery type: Shoulder surgery; Additional info: Dyspnea, right lung cancer, HX malignant pleural effusion TECHNIQUE: Imaging protocol: Radiologic exam of the chest. Views: 1 view. COMPARISON: CR XR chest 1V portable [id number] 10/18/2022 8:49 AM FINDINGS: Lungs: Stable fullness in the pulmonary vasculature suggesting volume overload in the left lung. See also under pleural spaces . Pleural spaces: Redemonstration of whiteout of the right hemithorax, likely due to a combination of a large right pleural effusion and compressive atelectasis in the right lung. No pneumothorax. Heart/Mediastinum: The right heart border and right mediastinum are obscured. Bones/joints: Unremarkable for age. XR/XR chest 1V portable [id number] IMPRESSION: 1. Redemonstration of whiteout of the right hemithorax, likely due to a combination of a large right pleural effusion and compressive atelectasis in the right lung. Recommend followup chest imaging to insure resolution of these findings. 2. Stable fullness in the pulmonary vasculature suggesting volume overload in the left lung. 3. Incidental/nonacute findings are listed in the report.
--- NOTE | 2022-10-29 20:56 | ED_ITS ---
HPI - SOB/Dyspnea General: Chief Complaint: Shortness of Breath/Dyspnea Stated Complaint: Sob Time Seen by Provider: 10/29/22 20:46 History of Present Illness: HPI Narrative: Patient presents to the ER with complaints of shortness of breath, on 328 he had a right-sided thoracentesis and drained 2.3 L of fluid by Dr. Patel pulmonology he does have known lung cancer on his right side. He states that drastically improved his breathing but then every day since then he is just progressively gone downhill. MD elicited complaint: shortness of breath Pertinent past history: other (Lung cancer) Onset (ago): day(s) Timing: constant and progressively worsening Severity: similar to previous episodes Exacerbating factors: lying flat and exertion Relieving factors: nothing Known history of: other (Lung cancer) Associated symptoms: Deny abdominal pain, chest pain, fever(s), nausea, palpitations or vomiting Treatment prior to arrival: oxygen Review of Systems General: Reports: 10 or more systems reviewed and unremarkable except in HPI and below Const: Denies: fever(s) or chills Eyes: Denies: change in vision ENMT: Denies: throat pain or odynophagia Card: Denies: chest pain, palpitations or irregular heart rhythm Resp: Reports: dyspnea; Denies: productive cough or non-productive cough GI: Denies: abdominal pain, nausea, vomiting or diarrhea : Denies: flank pain, difficulty urinating or dysuria Musc: Denies: neck pain or back pain Skin/Breast: Denies: rash or pruritus PFSH ED PFSH: Medical History Abdominal pain Anxiety Caries COPD (chronic obstructive pulmonary disease) Diabetes mellitus with hyperglycemia, without long-term current use of insulin Erectile dysfunction GERD (gastroesophageal reflux disease) History of MD (myocardial infarction) Hyperlipidemia Hypertension Hypogonadism Mass of upper lobe of right lung Primary adenocarcinoma of upper lobe of right lung Uncontrolled diabetes mellitus Surgical History History of appendectomy History of colonoscopy (~12/2019) History of total shoulder replacement Right Family History Other Cancer Diabetes Heart disease Hypertension Social History Smoking and tobacco status: current every day smoker cigarettes Packs smoked per day: 1 Years cigarettes smoked: 49 [ Other cigarette details: Started at age 8] Second hand smoke exposure: Yes Smoking risk assessment/counseling performed?: No Alcohol intake: current Alcohol intake frequency: holidays/special occasions only Desire information about alcohol rehabilitation?: No Counseling given: No Desire information about substance/drug rehabilitation?: No Counseling given: No Adopted: No Caregiver/support person: No Lives independently: Yes Household members: family Housing: House Marital status: Number of children: 23 Number of grandchildren: 19 service: No Current occupational status: disabled Current gender identity: Male Physical Exam Const: COMMON NORMALS: average body habitus, patient oriented x3, no limitations, alert and well nourished HENMT: COMMON NORMALS: normocephalic, atraumatic, hearing grossly normal bilaterally, external ears normal, Normal external nose present and moist oral mucous membranes HEAD & SCALP: normocephalic and atraumatic NOSE: Normal external nose present EXTERNAL EAR: Yes external ears normal Neck/C-Spine: COMMON NORMALS: full ROM, no lymphadenopathy, supple, no meningeal signs, no JVD and Thyroid normal THYROID: Thyroid normal Chest: COMMONS NORMALS: normal inspection of the chest and normal palpation of entire chest wall Resp: EFFORT & INSPECTION: Yes symmetric chest movement, Yes respiratory dis tress and Yes labored AUSCULTATION: diminished lung sounds (Adequate breath sounds on the left almost no breath sounds on right) Cardio: COMMON NORMALS: no JVD, regular rate, regular rhythm, S1 normal heart sound present and S2 normal heart sound present RATE: regular rate RHYTHM: regular rhythm HEART SOUNDS: S1 normal heart sound present and S2 normal heart sound present GI: COMMON NORMALS: Normal to inspection, nondistended, normoactive bowel sounds present, Soft to palpation, non-tender, No hepatosplenomegaly present and no masses PALPATION: Yes Soft to palpation and Yes No hepatosplenomegaly present Neuro: COMMON NORMALS: patient oriented x3, CN's II-XII intact bilaterally, moves all extremities and no focal motor deficits SENSORIUM/ORIENTATION: Yes alert MENINGEAL SIGNS: Yes no meningeal signs Psych: COMMON NORMALS: mental status grossly normal, Normal thought process present, cooperative, normal affect, speech normal and activity/motor behavior normal SPEECH: Yes normal speech THOUGHT PROCESS: Normal thought process present Course Vital Signs: Vital signs: Vital Signs Temperature 98.3 F 10/29/22 20:42 Pulse Rate 109 H 10/29/22 21:22 Respiratory Rate 16 10/29/22 21:43 Blood Pressure 108/72 10/29/22 21:43 Pulse Oximetry 93 10/29/22 21:43 Oxygen Delivery Me thod 10/29/22 20:42 Oxygen Flow Rate 2 10/29/22 20:42 MDM - SOB/Dyspnea Medical Decision Making Patient presents to the ER with complaints of worsening shortness of breath, he has a known history of stage IV lung cancer per the patient and had to have a right pleural effusion was drained 2.3 L of fluid off within the last approximately 10 days. Since then patient has had worsening shortness of breath to the point of him having to sleep sitting up and him not being able to roll over on his left side. Patient is still on the same amount of oxygen that he is normally on which is 2 L per nasal cannula and satting 95%. Lab work and imaging was discussed with the patient as well as Dr. Martinez hospitalist was consulted. There is no one to drain his lung until Dr. Patel returns on . Patient was given the option of being transferred to a different hospital for this procedure to be done but he declined that flat out. He says he will follow-up with Dr. Patel on Monday because he knows he is in his office. Patient was instructed to return to the ER if symptoms worsen. Differential Diagnosis Unlikely acute exacerbation of chronic obstructive airways disease, congestive heart failure, community acquired pneumonia, asthma with exacerbation or pulmonary embolism Medical Records I reviewed the patient's medical records. Lab Data I reviewed the patient's lab results. 10/29/22 21:05 10/29/22 21:05 Labs/Radiology: Radiology Impressions Chest X-Ray 10/29/22 20:54 IMPRESSION: 1. Redemonstration of whiteout of the right hemithorax, likely due to a combination of a large right pleural effusion and compressive atelectasis in the right lung. Recommend followup chest imaging to insure resolution of these findings. 2. Stable fullness in the pulmonary vasculature suggesting volume overload in the left lung. 3. Incidental/nonacute findings are listed in the report. Laboratory Results WBC 11.2 10^3/uL (4.0-10.0) H 10/29/22 21:05 RBC 6.08 10^6/uL (4.1-5.3) H 10/29/22 21:05 Hgb 17.1 g/dL (11.7-16.6) H 10/29/22 21:05 Hct 50.9 % (42.0-52.0) 10/29/22 21:05 MCV 83.7 fl (80-94) 10/29/22 21:05 MCH 28.1 pg (28.0-34.0) 10/29/22 21:05 MCHC 33.6 g/dL (30.0-36.0) 10/29/22 21:05 RDW 13.5 % (12.1-15.1) 10/29/22 21:05 Plt Count 374 10^3/cmm (130-400) 10/29/22 21:05 MPV 9.0 fL (7.4-10.4) 10/29/22 21:05 Neut % (Auto) 74.6 % 10/29/22 21:05 Lymph % (Auto) 18.3 % 10/29/22 21:05 [place] % (Auto) 5.0 % 10/29/22 21:05 Eos % (Auto) 1.4 % 10/29/22 21:05 Baso % (Auto) 0.4 % 10/29/22 21:05 Neut # (Auto) 8.35 10^3/uL (1.8-7.7) H 10/29/22 21:05 Lymph # (Auto) 2.1 10^3/uL (0.8-4.8) 10/29/22 21:05 [place] # (Auto) 0.6 10^3/uL (0.2-0.9) 10/29/22 21:05 Eos # (Auto) 0.2 10^3/uL (0.0-0.8) 10/29/22 21:05 Baso # (Auto) 0.1 10^3/uL (0.0-0.1) 10/29/22 21:05 Nucleated RBC % (auto) 0 % 10/29/22 21:05 Nucleated RBCs # 0.0 /100WBC 10/29/22 21:05 PT 12.70 SECONDS (12.1-14.9) 10/29/22 21:05 INR 0.92 (0.8-1.2) 10/29/22 21:05 Sodium 136 mmol/L (136-145) 10/29/22 21:05 Potassium 3.7 mmol/L (3.5-5.1) 10/29/22 21:05 Chloride 96 mmol/L (98-107) L 10/29/22 21:05 Carbon Dioxide 28 mmol/L (22-29) 10/29/22 21:05 Anion Gap 15.7 (5-19) 10/29/22 21:05 BUN 7 mg/dL (6-20) 10/29/22 21:05 Creatinine 0.6 mg/dL (0.7-1.2) L 10/29/22 21:05 GFR Calculation 138.4 mL/min (90-130) H 10/29/22 21:05 Glucose 175 mg/dL (65-115) H 10/29/22 21:05 Calculated Osmolality 284 mOsm/kg (285-295) L 10/29/22 21:05 Calcium 9.4 mg/dL (8.5-10.5) 10/29/22 21:05 Total Bilirubin 0.4 mg/dL (0.15-1.2) 10/29/22 21:05 AST 14 U/L (0-40) 10/29/22 21:05 ALT 11 U/L (0-41) 10/29/22 21:05 Alkaline Phosphatase 92 U/L (40-130) 10/29/22 21:05 Total Protein 7.2 g/dL (6.6-8.7) 10/29/22 21:05 Albumin 3.4 g/dL (3.5-5.2) L 10/29/22 21:05 Globulin 3.8 g/dL (1.3-4.6) 10/29/22 21:05 Discharge Plan Discharge Patient Disposition: Home Clinical Impression: Pleural effusion on right, Primary adenocarcinoma of upper lobe of right lung Condition: Stable Prescriptions: No Action lactulose 20 gram/30 mL solution 20 g PO BID PRN (Reason: constipation) 30 Days Qty: 1800 2RF atorvastatin 20 mg tablet 20 mg PO .QHS 30 Days Qty: 30 3RF metformin 500 mg tablet extended release 24 hr 1,000 mg PO DAILY Qty: 60 2RF (DME) OXYGEN AT 2 LITERS PER N/C CONTINUOUS See Rx Instructions .Route .MEDSUPPLY Qty: 1 0RF Rx Instructions: PLEASE PROVIDE PORTABLE CONSERVATIVE DEVICE, CONCENTRATOR, AND TUBING SUPPLIES ipratropium-albuterol 0.5 mg-3 mg(2.5 mg base)/3 mL solution for nebulization 3 ml inhalation QID PRN (Reason: shortness of breath or wheezing) Qty: 180 2RF (DME) NEBULIZER MACHINE AND TUBING SUPPLIES See Rx Instructions .Route .MEDSUPPLY Qty: 1 0RF Rx Instructions: PROVIDE TUBING SUPPLIES (DME) OVERNIGHT AT HOME SLEEP STUDY See Rx Instructions .Route .MEDSUPPLY Qty: 1 0RF Rx Instructions: As directed Mucinex 1,200 mg tablet extended release 12hr 1,200 mg PO Q12H PRN (Reason: congestion) Trulicity 1.5 mg/0.5 mL pen injector 1.5 mg SUBCUT .weekly Qty: 2 6RF Rx Instructions: dose increase promethazine 25 mg tablet 25 mg PO QID PRN (Reason: nausea and vomiting) Qty: 90 0RF sildenafil [Viagra] 100 mg tablet 100 mg PO DAILY PRN (Reason: sexual activity) Qty: 10 0RF Rx Instructions: 1/2 to 1 whole tab administer 30 minutes to 4 hours before activity Spiriva Respimat 2.5 mcg/actuation mist 2 puff inhalation DAILY 30 Days Qty: 4 6RF ketorolac 10 mg tablet 10 mg PO QID PRN (Reason: pain) 5 Days Qty: 20 0RF diclofenac sodium [Voltaren Arthritis Pain] 1 % gel 4 g topical QID Qty: 100 6RF mupirocin 2 % ointment 1 applic topical BID Qty: 15 1RF albuterol sulfate [Ventolin HFA] 90 mcg/actuation HFA aerosol inhaler 2 puff inhalation 6XD PRN (Reason: shortness of breath or wheezing) Qty: 8.5 0RF Trelegy Ellipta 200-62.5-25 mcg blister with device 1 inh inhalation Q24H Qty: 60 11RF Hold Instructions: Patient wants to try Spiriva (DME) Blood Glucose Test Strip See Rx Instructions .Route Qty: 50 5RF Rx Instructions: testing one to two times daily (DME) blood-glucose meter Misc See Rx Instructions .Route Qty: 1 0RF Rx Instructions: As directed (DME) lancets [Comfort Lancets] Misc See Rx Instructions .Route Qty: 100 1RF Rx Instructions: testing one to two times daily insulin glargine 100 unit/mL (3 mL) insulin pen 25 unit SUBCUT BID Qty: 15 0RF Rx Instructions: must fill at [facility] (DME) pen needle, diabetic [Comfort EZ Pen [place]] 33 gauge x 5/32 needle See Rx Instructions .Route Qty: 100 0RF Rx Instructions: As directed ibuprofen 600 mg Tablet 600 mg PO Q6H PRN (Reason: Pain) acetaminophen [Tylenol] 325 mg Capsule 325 mg PO QID PRN (Reason: Pain) Farxiga 10 mg Tablet 10 mg PO DAILY oxycodone 5 mg tablet 5 mg PO Q4H PRN (Reason: pain) Qty: 10 0RF polyethylene glycol 3350 [Miralax] 17 gram powder in packet 17 g PO DAILY PRN (Reason: laxative effect) Qty: 100 0RF Rx Instructions: 1 to 3 times per day as needed for applesauce consistency bowel movements Discharge Orders: Discharge ED (Routine); Ordered 10/29/22 Ordered By: Tim Richardson Referrals: Kassy Ashley NP [Primary Care Provider] - Patient Instructions: Pleural Effusion Activity Restrictions/Additional Instructions: Call Dr. Mcdonald's office first thing Monday morning to arrange follow-up. Return to the emergency room if symptoms worsen. Coding Level of Care Code ED Commissary Helper for Gilda Vu
[2022-10-29 21:13] LABS: Basophils # 0.1 10^3/uL (0.0-0.1); Basophils % 0.4 %; Eosinophils # 0.2 10^3/uL (0.0-0.8); Eosinophils % 1.4 %; Hematocrit 50.9 % (42.0-52.0); Hemoglobin 17.1 g/dL (11.7-16.6); Lymphocytes # 2.1 10^3/uL (0.8-4.8); Lymphocytes % 18.3 %; Mean Corpuscular HGB Conc 33.6 g/dL (30.0-36.0); Mean Corpuscular Hemoglobin 28.1 pg (28.0-34.0); Mean Corpuscular Volume 83.7 fl (80-94); Monocytes # 0.6 10^3/uL (0.2-0.9); Neutrophils # 8.35 10^3/uL (1.8-7.7); Neutrophils % 74.6 %; Nucleated Red Blood Cells % 0 %; Platelet Count 374 10^3/cmm (130-400); Red Blood Count 6.08 10^6/uL (4.1-5.3); Red Cell Distribution Width 13.5 % (12.1-15.1); White Blood Count 11.2 10^3/uL (4.0-10.0)
[2022-10-29 21:22] VITALS: BP 108/72; PULSE 109; RESP 16; O2SAT 94
[2022-10-29 21:28] LABS: INR 0.92 (0.8-1.2)
[2022-10-29 21:35] LABS: Alanine Aminotransferase 11 U/L (0-41); Albumin Level 3.4 g/dL (3.5-5.2); Alkaline Phosphatase 92 U/L (40-130); Anion Gap 15.7 (5-19); Aspartate Amino Transferase 14 U/L (0-40); Blood Urea Nitrogen 7 mg/dL (6-20); Calcium 9.4 mg/dL (8.5-10.5); Carbon Dioxide 28 mmol/L (22-29); Chloride 96 mmol/L (98-107); Globulin 3.8 g/dL (1.3-4.6); Glomerular Filtration Rate 138.4 mL/min (90-130); Glucose 175 mg/dL (65-115); Osmolality Calculated 284 mOsm/kg (285-295); Potassium 3.7 mmol/L (3.5-5.1); Sodium 136 mmol/L (136-145); Total Bilirubin 0.4 mg/dL (0.15-1.2); Total Protein 7.2 g/dL (6.6-8.7)
[2022-10-29 21:43] VITALS: BP 108/72; RESP 16; O2SAT 93
[2022-10-29 22:20] VITALS: BP 108/72; PULSE 100; RESP 16; TEMP 36.8; O2SAT 94
== END 2022-10-29 22:22 | disposition home or self-care (01) ==
PROVIDERS: Emergency Provider Emergency Medicine; PCP Nurse Practitioner Family
DX: J90 Pleural effusion, not elsewhere classified (principal); C34.11 Malignant neoplasm of upper lobe, right bronchus or lung; Z79.84 Long term (current) use of oral hypoglycemic drugs; Z79.85 Long-term (current) use of injectable non-insulin antidiabetic drugs; Z79.4 Long term (current) use of insulin; F17.210 Nicotine dependence, cigarettes, uncomplicated; J44.9 Chronic obstructive pulmonary disease, unspecified; E11.9 Type 2 diabetes mellitus without complications; I25.2 Old myocardial infarction; E78.5 Hyperlipidemia, unspecified; I10 Essential (primary) hypertension; Z99.81 Dependence on supplemental oxygen
CPT/HCPCS: 71045; 80053; 85025; 85610; 99284

== ENCOUNTER 2022-11-03 06:54 | Day surgery (SDC) | payer MEDICARE, MEDICAID, SELFPAY ==
[2022-11-02 11:42] VITALS: BMI 24.3
[2022-11-03 07:12] VITALS: BP 98/73; PULSE 109; RESP 18; TEMP 36.3; O2SAT 91
--- NOTE | 2022-11-03 08:53 | XR_ITS ---
WS: [id number] EXAMINATION: XR chest 1V portable [id number] REASON FOR EXAM: post thora COMPARISON: None available. ORDER DATE: 11/03/2022 8:53 AM TECHNIQUE: A single, portable frontal chest x-ray was obtained. X-RAY FINDINGS: Lungs: There is pattern of scattered interlobular septal thickening peripherally Pleural spaces: Redemonstration of whiteout of the right hemithorax, likely due to a combination of a large right pleural effusion and compressive atelectasis in the right lung. There is abrupt termination of the right mainstem bronchus.. Heart/Mediastinum: The right heart border and right mediastinum are obscured. Bones/joints: Unremarkable for age. XR/XR chest 1V portable [id number] IMPRESSION: 1. Redemonstration of whiteout of the right hemithorax as previous Recommend followup chest imaging to insure resolution of these findings. 2. Peripheral interstitial thickening in the left lung suggestive of mild inter stitial edema
--- NOTE | 2022-11-03 09:15 | P.PCN_ITS ---
Outpatient Procedures Thoracentesis Consent signed and on chart: Yes Time Out Performed: Yes Procedure: therapeutic thoracentesis Location: Right Local anesthetic used: lidocaine 1% Bedside ultrasound used: yes, pleural effusion confirmed and location marked Preparation: sterile prep and drape Amount of fluid obtained (mL): 2,060 Fluid: bloody Post Procedure Exam: awake, alert, normal BP, normal HR and normal SpO2 Post-procedure chest x-ray ordered: Yes Estimated blood loss (mL): 5 Patient Tolerated Procedure: well and no complications Procedure Note: Pulmonary & Critical Care Medicine Procedure - Ultrasound guided Thoracentesis Procedure: CPT code 35010 thoracentesis, needle or catheter, aspiration of the pleural space; with imaging guidance Indication: Worsening right pleural effusion.? C56.2 Skydiving Instructor(s): Yariel Rocha MD [facility] Clinical history: Mr. Wes Edward is a 57-year-old male, chronic smoker, recently diagnosed with metastatic moderately differentiated lung adenocarcinoma with PET active metastatic retroperitoneal lymphadenopathy-has evidence of recurrent right pleural effusion.? Recently came to emergency room on 10/29/2022.? He was requiring 2 L supplemental oxygen and reports difficulty breathing and sleeping. Patient is going to start his chemotherapy next week. I had a kim discussion with the patient about Pleurx catheter placement regarding recurrent right pleural effusion and also to also gave him the option of thoracentesis today and see if he recurs We can put a Pleurx catheter. He agreed for thoracentesis today and if the fluid recurs within 1 month we will proceed with Pleurx catheter next time He is scheduled for outpatient therapeutic thoracentesis today. Technique: The study was performed in an ACR accredited facility.? Medication reconciliation form reviewed and any changes related this procedure resolved. Report: The procedure for thoracentesis was explained to the patient including the risks, benefits and possible complications.? The patient was given the opportunity to ask questions, wished to proceed, and signed the written informed consent form.? Using ultrasound guidance, a safe route of access was identified into the right pleural space.? The site was then prepped and draped using maximal sterile barrier technique.? The 1% lidocaine was used for local anesthetic.? With sonographic guidance, a 6 Slovenian thoracentesis catheter? was placed with return of 5 cc hemorrhagic pleural fluid.? The catheter was slipped into the pleural cavity and approximately 2060 cc of sanguinous pleural fluid was removed.? The patient tolerated the procedure well without any immediate complications. Impression: 1.? Successful ultrasound-guided right thoracentesis with removal of approximately 2060 cc of sanguinous pleural fluid. ICD-10 code-J90 pleural effusion, not elsewhere classified
[2022-11-03 09:49] LABS: Hematocrit Body Fluid 0.7 %
[2022-11-03 09:57] LABS: Body Fluid Polynuclear #Cells 0.048; Body Fluid WBC 1086 /uL; Monocytes # Body Fluid 1.038
[2022-11-03 10:24] LABS: Color, Body Fluid RED
[2022-11-03 10:25] LABS: Apprearance, Body Fluid CLOUDY
[2022-11-03 10:57] LABS: Albumin Body Fluid 2.2 g/dL; Creatinine Body Fluid 0.53 (0.7-1.2); LDH Pleural Fluid 261 U/L; Total Protein Pleural Fluid 3.5 g/dL; Triglycerides, Pleural Fluid 38 mg/dL
== END 2022-11-03 10:13 | disposition home or self-care (01) ==
LOC: GILAB 06:57
PROVIDERS: PCP Nurse Practitioner Family; Visit Provider Internal Medicine Pulmonary Disease
PROC: (CPT 32554; principal; 2022-11-03 08:00)
DX: J90 Pleural effusion, not elsewhere classified (principal); C34.90 Malignant neoplasm of unspecified part of unspecified bronchus or lung; Z99.81 Dependence on supplemental oxygen; F17.200 Nicotine dependence, unspecified, uncomplicated
CPT/HCPCS: 32555; 71045; 80503; 82042; 82150; 82570; 82945; 83615; 83986; 84157; 84478; 85014; 87070; 87075; 87205; 89050

== ENCOUNTER 2022-11-08 15:15 | Inpatient (IN) | payer MEDICARE, MEDICAID, SELFPAY ==
[2022-11-08] VITALS (21 sets, daily range): BP systolic 91–115; BP diastolic 66–81; PULSE 112–125; RESP 16–24; TEMP 36.7–36.8; O2SAT 90–95; BMI 25.1
--- NOTE | 2022-11-08 15:27 | XRR_ITS ---
PROCEDURE INFORMATION: Exam: XR Chest Exam date and time: 11/08/2022 4:26 PM Age: 57 years old Clinical indication: Shortness of breath; Patient HX: HX of lung cancer; Additional info: SOB TECHNIQUE: Imaging protocol: Radiologic exam of the chest. Views: 1 view. COMPARISON: CR (CHEST, ) 10/29/2022 9:02 PM FINDINGS: Lungs: Stable complete opacification of the right hemithorax. Increased interstitial opacities in the peripheral left lung. Pleural spaces: No pneumothorax. Heart/Mediastinum: The heart and mediastinum are shifted to the right. Bones/joints: Unremarkable. XR/XR chest 1V portable [id number] IMPRESSION: 1. Stable complete opacification of the right hemithorax. 2. Increased interstitial opacities in the peripheral left lung could represent pulmonary edema or atypical pneumonia.
[2022-11-08 15:49] LABS: Basophils # 0.1 10^3/uL (0.0-0.1); Basophils % 0.5 %; Eosinophils # 0.1 10^3/uL (0.0-0.8); Eosinophils % 1.3 %; Hematocrit 46.5 % (42.0-52.0); Hemoglobin 15.4 g/dL (11.7-16.6); Lymphocytes # 1.5 10^3/uL (0.8-4.8); Lymphocytes % 14.1 %; Mean Corpuscular HGB Conc 33.1 g/dL (30.0-36.0); Mean Corpuscular Hemoglobin 27.6 pg (28.0-34.0); Mean Corpuscular Volume 83.5 fl (80-94); Mean Platelet Volume 8.8 fL (7.4-10.4); Monocytes # 0.7 10^3/uL (0.2-0.9); Monocytes % 6.3 %; Neutrophils # 7.99 10^3/uL (1.8-7.7); Neutrophils % 77.4 %; Nucleated Red Blood Cells % 0 %; Platelet Count 371 10^3/cmm (130-400); Red Blood Count 5.57 10^6/uL (4.1-5.3); Red Cell Distribution Width 13.5 % (12.1-15.1); White Blood Count 10.3 10^3/uL (4.0-10.0)
--- NOTE | 2022-11-08 16:21 | ED_ITS ---
HPI - SOB/Dyspnea General: Chief Complaint: Shortness of Breath/Dyspnea Stated Complaint: SOB Time Seen by Provider: 11/08/22 16:17 Source: patient Mode of arrival: ambulatory History of Present Illness: HPI Narrative: 49-year-old male who presents to the emergency room complaining of shortness of breath. Increasing shortness of breath for the last 4 to 5 days. Is also had productive cough of yellow sputum increased from his baseline. He has a known history of lung cancer 4 days ago patient had a thoracentesis which removed about 2 L according to the records. There was talk of placing a drain. The anticipated it would likely recur. He has not yet begun treatment for his cancer. Patient has a stage IV lung CA. He has not had a fever. He is requiring slightly more oxygen than his usual baseline. Patient reports he is normally on 2 L he is now requiring 3 to 4 L by nasal cannula to maintain sats. Patient was off of his oxygen just to walk across her [place] to the bathroom when he returned his heart rate was in the 140s and his oxygen saturation was in the mid to low 80s. MD elicited complaint: shortness of breath and cough Pertinent past history: COPD and other (Lungs CTA with right pleural effusion) Onset (ago): week(s) Timing: constant Severity: severe Exacerbating factors: lying flat, exertion, movement and coughing Relieving factors: oxygen and upright position Known history of: COPD Associated symptoms: Deny abdominal pain, chest congestion, chest pain, cough, diaphoresis, dizziness, extremity pain, fever(s), hemoptysis, lightheadedness, myalgias, nausea, orthopnea, palpitations, paresthesias, polydipsia, polyuria, rash, sense of impending doom, syncope or vomiting Treatment prior to arrival: oxygen and bronchodilator Review of Systems Const: Reports: fatigue and malaise; Denies: fever(s), chills or diaphoresis ENMT: Denies: throat pain, ear or mastoid pain, nasal discharge or nasal congestion Card: Denies: chest pain, palpitations, lightheadedness, syncope or orthopnea Resp: Reports: dyspnea, productive cough and wheezing; Denies: hemoptysis or chest congestion GI: Denies: abdominal pain, nausea or vomiting : Denies: flank pain, dysuria, urinary frequency or urinary urgency Musc: Denies: extremity pain Skin/Breast: Denies: rash or pruritus Neuro: Denies: dizziness Endo: Denies: polyuria or polydipsia PFSH ED PFSH: Medical History Abdominal pain Anxiety Caries COPD (chronic obstructive pulmonary disease) Diabetes mellitus with hyperglycemia, without long-term current use of insulin Erectile dysfunction GERD (gastroesophageal reflux disease) History of [place] (myocardial infarction) Hyperlipidemia Hypertension Hypogonadism Mass of upper lobe of right lung Primary adenocarcinoma of upper lobe of right lung Smoking addiction Uncontrolled diabetes mellitus Surgical History History of appendectomy History of colonoscopy (~12/2019) History of total shoulder replacement Right Family History Other Cancer Diabetes Heart disease Hypertension Social History Smoking and tobacco status: current every day smoker cigarettes Packs smoked per day: 1 Years cigarettes smoked: 49 [ Other cigarette details: Started at age 8] Second hand smoke exposure: Yes Smoking risk assessment/counseling performed?: No Alcohol intake: current Alcohol intake frequency: holidays/special occasions only Desire information about alcohol rehabilitation?: No Counseling given: No Desire information about substance/drug rehabilitation?: No Counseling given: No Adopted: No Caregiver/support person: No Lives independently: Yes Household members: family Housing: House Marital status: Number of children: 23 Number of grandchildren: 19 service: No Current occupational status: disabled Current gender identity: Male Physical Exam Const: GENERAL APPEARANCE: cooperative ORIENTATION/CONSCIOUSNESS: Yes awake, Yes oriented to person, Yes oriented to place and Yes oriented to time HENMT: COMMON NORMALS: normocephalic, atraumatic and hearing grossly normal bilaterally HEAD & SCALP: normocephalic and atraumatic Resp: OTHER: Markedly diminished lung sounds on the right. Dull to percussion. Crackles at the left base. With strong expiratory wheezes on the left. Cardio: COMMON NORMALS: regular rhythm and No murmurs present (Cardio) RATE: tachycardic RHYTHM: regular rhythm GI: COMMON NORMALS: Soft to palpation and No hepatosplenomegaly present AUSCULTATION: Yes normoactive bowel sounds PALPATION: Yes Soft to palpation, No Tenderness to palpation present (GI), No Guarding due to palpation present (GI) and Yes No hepatosplenomegaly present Extremity: COMMON NORMALS: normal to inspection, capillary refill normal, no clubbing, cyanosis or edema, no calf tenderness and no pedal edema Neuro: SENSORIUM/ORIENTATION: Yes oriented to person, Yes oriented to place a nd Yes oriented to time Skin: COMMON NORMALS: no rashes or lesions noted GENERAL SKIN EXAM: no rashes or lesions noted Course Vital Signs: Vital signs: Vital Signs Temperature 97.2 F L 11/09/22 03:40 Pulse Rate 105 H 11/09/22 05:21 Respiratory Rate 22 H 11/09/22 03:40 Blood Pressure 118/82 11/09/22 03:40 Pulse Oximetry 90 11/09/22 03:40 Oxygen Delivery Me thod Nasal Cannula 11/08/22 23:43 Oxygen Flow Rate 2 11/08/22 17:57 MDM - SOB/Dyspnea Medical Decision Making Large right pleural effusion with what appears to be new infiltrates in the left base. Will start on oral antibiotics admit continue aggressive pulmonary toilet. Discussed with Dr. Lackey with Dr. Jorge Patel will see the patient tomorrow and evaluate for possible placement of pleural drain to prevent recurrence of the effusion. Labs imaging and plan reviewed with the patient. Medical Records I reviewed the patient's medical records. Lab Data I reviewed the patient's lab results. 11/08/22 15:40 11/08/22 15:40 Labs/Radiology: Radiology Impressions Chest X-Ray 11/08/22 15:27 IMPRESSION: 1. Stable complete opacification of the right hemithorax. 2. Increased interstitial opacities in the peripheral left lung could represent pulmonary edema or atypical pneumonia. Chest CTA 11/08/22 19:07 IMPRESSION: 1. No evidence for pulmonary embolus. 2. Inhomogenous consolidation of the entire right lung. This could represent diffuse malignant neoplastic involvement. 3. Large right and small left pleural effusions. 4. Prominent mediastinal and substernal lymph nodes, consistent with metastatic disease. 5. Pericardial effusion. 6. Pulmonary edema and/or pneumonia in the left lung. COMMENTS: Consistent with the [employer]'s Incidental Findings Committee white paper (J Am Jamil Radiol 2018): Any incidental renal lesion less than 1 cm or classified as too small to characterize, or any incidental cystic renal lesion characterized as simple-appearing, is likely benign. No follow-up imaging is recommended for these lesions per consensus recommendations based on imaging criteria. Laboratory Results WBC 10.3 10^3/uL (4.0-10.0) H 11/08/22 15:40 RBC 5.57 10^6/uL (4.1-5.3) H 11/08/22 15:40 Hgb 15.4 g/dL (11.7-16.6) 11/08/22 15:40 Hct 46.5 % (42.0-52.0) 11/08/22 15:40 MCV 83.5 fl (80-94) 11/08/22 15:40 MCH 27.6 pg (28.0-34.0) L 11/08/22 15:40 MCHC 33.1 g/dL (30.0-36.0) 11/08/22 15:40 RDW 13.5 % (12.1-15.1) 11/08/22 15:40 Plt Count 371 10^3/cmm (130-400) 11/08/22 15:40 MPV 8.8 fL (7.4-10.4) 11/08/22 15:40 Neut % (Auto) 77.4 % 11/08/22 15:40 Lymph % (Auto) 14.1 % 11/08/22 15:40 Harney % (Auto) 6.3 % 11/08/22 15:40 Eos % (Auto) 1.3 % 11/08/22 15:40 Baso % (Auto) 0.5 % 11/08/22 15:40 Neut # (Auto) 7.99 10^3/uL (1.8-7.7) H 11/08/22 15:40 Lymph # (Auto) 1.5 10^3/uL (0.8-4.8) 11/08/22 15:40 Harney # (Auto) 0.7 10^3/uL (0.2-0.9) 11/08/22 15:40 Eos # (Auto) 0.1 10^3/uL (0.0-0.8) 11/08/22 15:40 Baso # (Auto) 0.1 10^3/uL (0.0-0.1) 11/08/22 15:40 Nucleated RBC % (auto) 0 % 11/08/22 15:40 Nucleated RBCs # 0.0 /100WBC 11/08/22 15:40 PT 13.10 SECONDS (12.1-14.9) 11/08/22 16:21 INR 0.96 (0.8-1.2) 11/08/22 16:21 APTT 30.3 SECONDS (23.9-36.7) 11/08/22 16:21 Sodium 133 mmol/L (136-145) L 11/08/22 15:40 Potassium 4.1 mmol/L (3.5-5.1) 11/08/22 15:40 Chloride 95 mmol/L (98-107) L 11/08/22 15:40 Carbon Dioxide 29 mmol/L (22-29) 11/08/22 15:40 Anion Gap 13.1 (5-19) 11/08/22 15:40 BUN 9 mg/dL (6-20) 11/08/22 15:40 Creatinine 0.6 mg/dL (0.7-1.2) L 11/08/22 15:40 GFR Calculation 138.4 mL/min (90-130) H 11/08/22 15:40 Glucose 225 mg/dL (65-115) H 11/08/22 15:40 Calculated Osmolality 282 mOsm/kg (285-295) L 11/08/22 15:40 Calcium 9.0 mg/dL (8.5-10.5) 11/08/22 15:40 Total Bilirubin 0.4 mg/dL (0.15-1.2) 11/08/22 15:40 AST 11 U/L (0-40) 11/08/22 15:40 ALT 11 U/L (0-41) 11/08/22 15:40 Alkaline Phosphatase 80 U/L (40-130) 11/08/22 15:40 NT-Pro-B Natriuret Pep 192 pg/mL (0-125) H 11/08/22 15:40 Total Protein 6.2 g/dL (6.6-8.7) L 11/08/22 15:40 Albumin 2.8 g/dL (3.5-5.2) L 11/08/22 15:40 Globulin 3.4 g/dL (1.3-4.6) 11/08/22 15:40 Discharge Plan Discharge Patient Disposition: Placed in Observation Admit Provider: Darnell Vidal Clinical Impression: Recurrent pleural effusion on right, Mass of upper lobe of right lung, COPD (chronic obstructive pulmonary disease), Uncontrolled diabetes mellitus, Pneumonia Coding Level of Care Code ED Chairman And Ceo for Gilda Vu
[2022-11-08 16:25] LABS: Alanine Aminotransferase 11 U/L (0-41); Albumin Level 2.8 g/dL (3.5-5.2); Alkaline Phosphatase 80 U/L (40-130); Anion Gap 13.1 (5-19); Aspartate Amino Transferase 11 U/L (0-40); Blood Urea Nitrogen 9 mg/dL (6-20); Carbon Dioxide 29 mmol/L (22-29); Chloride 95 mmol/L (98-107); Globulin 3.4 g/dL (1.3-4.6); Glomerular Filtration Rate 138.4 mL/min (90-130); Glucose 225 mg/dL (65-115); NT Pro B Type Natriuretic Pept 192 pg/mL (0-125); Osmolality Calculated 282 mOsm/kg (285-295); Potassium 4.1 mmol/L (3.5-5.1); Sodium 133 mmol/L (136-145); Total Bilirubin 0.4 mg/dL (0.15-1.2); Total Protein 6.2 g/dL (6.6-8.7)
--- NOTE | 2022-11-08 16:39 | PC.NURSE ---
Pt hooked up to continuous bedside cardiac monitoring.
[2022-11-08 17:41] LABS: INR 0.96 (0.8-1.2)
[2022-11-08 17:42] LABS: Partial Thromboplastin Time 30.3 SECONDS (23.9-36.7)
[2022-11-08] MEDS: levofloxacin-dextrose 5 % 750 MG/150 ML PREMIX 100 MG IV (17:48)
[2022-11-08] MEDS: ipratropium-albuterol 3 mL Neb INHALATION (17:56)
--- NOTE | 2022-11-08 19:05 | P.HP_ITS ---
Providers/Chief Complaint Admitting Physician: Darnell Vidal Primary Care Provider: Kassy Ashley NP Chief Complaint: SOB History of Present Illness 57-year-old gentleman normally on about 2 L of oxygen, with metastatic adenocarcinoma with pleural metastasis, liver lesions suspicious for metastatic disease, in process of arrangements of chemotherapy, with recurrent right-sided pleural effusion, status postthoracentesis x2 so far, most recently on . Thoracentesis Preiser had allowed him about 2 weeks in between. Currently he comes into the hospital with dyspnea, cough productive of yellow/white sputum. Pleuritic chest pain. Denies fever or chills. Denies hemoptysis. In ER sinus tachycardia 121, afebrile, blood pressure 115/81, WBC 10.3. Chest x-ray with stable complete opacification of the right hemithorax. Increased interstitial opacities of the peripheral left lung could represent pulmonary edema or atypical pneumonia. Review of Systems Const: Denies: fever(s), chills, body aches or malaise ENMT: Denies: throat pain Card: Denies: chest pain, edema, pre-syncope or dyspnea on exertion Resp: Reports: dyspnea, productive cough and change in phlegm color; Denies: hemoptysis GI: Denies: abdominal pain, nausea, vomiting, diarrhea, constipation, hematochezia or melena : Denies: flank pain, difficulty urinating, urinary frequency or hematuria Musc: Denies: back pain, joint swelling or joint redness Skin/Breast: Denies: rash or new lesions Neuro: Denies: headache(s), numbness in extremities, weakness in extremities, dizziness, confusion or seizure-like activity Medications/Allergies Home Medications Medication Instructions Recorded Confirmed Last Taken Type diclofenac sodium 1 % topical gel 4 g topical QID #100 grams 03/02/22 11/08/22 11/08/22 Rx (Voltaren Arthritis Pain) mupirocin 2 % topical ointment 1 applic topical BID #15 grams 04/01/22 11/08/22 11/02/22 Rx blood sugar diagnostic (Blood #50 ea 04/25/22 11/08/22 10/14/22 Rx Glucose Test strips) blood-glucose meter #1 ea 04/25/22 11/08/22 10/14/22 Rx lancets (Comfort Lancets) #100 ea 04/25/22 11/08/22 10/14/22 Rx atorvastatin 20 mg tablet 20 mg PO .QHS 30 days #30 tabs 06/08/22 11/08/22 11/08/22 Rx lactulose 20 gram/30 mL oral 20 g (30 mL) PO BID PRN 06/08/22 11/08/22 2 Weeks Ago Rx solution constipation 30 days #1,800 mL ~10/04/22 metformin 500 mg tablet,extended 1,000 mg PO DAILY #60 tabs 06/08/22 11/08/22 11/08/22 Rx release 24 hr albuterol sulfate 90 mcg/actuation 2 puff inhalation 6XD PRN 08/02/22 11/08/22 11/02/22 Rx aerosol inhaler (Ventolin HFA) shortness of breath or wheezing #8.5 grams fluticasone fur. 200 mcg-umeclid 1 inh inhalation Q24H #60 ea 08/02/22 11/08/22 11/02/22 Rx 62.5 mcg-vilant 25 mcg inhalat.powder (Trelegy Ellipta) NEBULIZER MACHINE AND TUBING #1 ea 08/08/22 11/08/22 10/14/22 Rx SUPPLIES OVERNIGHT AT HOME SLEEP STUDY #1 ea 08/08/22 11/08/22 10/14/22 Rx OXYGEN AT 2 LITERS PER N/C #1 ea 08/08/22 11/08/22 10/14/22 Rx CONTINUOUS ipratropium 0.5 mg-albuterol 3 mg 3 ml inhalation QID PRN shortness 08/08/22 11/08/22 11/03/22 Rx (2.5 mg base)/3 mL nebulization of breath or wheezing #180 mL soln acetaminophen 325 mg capsule 325 mg PO QID PRN Pain 08/15/22 11/08/22 11/02/22 History (Tylenol) guaifenesin 1,200 mg tablet, 1,200 mg PO Q12H PRN congestion 08/15/22 11/08/22 08/15/22 History extended release 12 hr (Mucinex) ibuprofen 600 mg tablet 600 mg PO Q6H PRN Pain 08/15/22 11/08/22 1 Month Ago History ~09/20/22 dulaglutide 1.5 mg/0.5 mL 1.5 mg (0.5 mL) SUBCUT .weekly #2 08/31/22 11/08/22 11/03/22 Rx subcutaneous pen injector mL (Trulicity) sildenafil 100 mg tablet (Viagra) 100 mg PO DAILY PRN sexual 08/31/22 11/08/22 Unknown Rx activity #10 tabs insulin glargine 100 unit/mL (3 25 unit (0.25 mL) SUBCUT BID #15 mL 09/08/22 11/08/22 11/02/22 Rx mL) subcutaneous pen pen needle, diabetic 33 gauge x #100 ea 09/09/22 11/08/22 10/14/22 Rx 5/32 (Comfort EZ Pen [place]) tiotropium bromide 2.5 2 puff inhalation DAILY 30 days #4 10/06/22 11/08/22 11/02/22 Rx mcg/actuation mist for inhalation grams (Spiriva Respimat) dapagliflozin 10 mg tablet 10 mg PO DAILY 10/13/22 11/08/22 11/08/22 History (Farxiga) polyethylene glycol 3350 17 gram 17 g PO DAILY PRN laxative effect 10/13/22 11/08/22 10/15/22 Rx oral powder packet (Miralax) #100 ea WHEELCHAIR WITH FOOT PEDALS #1 ea 11/04/22 11/08/22 Unknown Rx oxycodone 5 mg tablet 5 mg PO Q6H PRN pain 5 days #20 11/04/22 11/08/22 Unknown Rx tabs Allergies Allergy/AdvReac Type Severity Reaction Status Date / Time codeine Allergy ALGY-Rash Verified 11/08/22 15:22 latex Allergy ALGY-Rash Verified 11/08/22 15:22 PFSH Acute PFSH: Medical History (Updated 11/08/22 @ 20:23 by Darnell Vidal MD) Abdominal pain Anxiety Caries COPD (chronic obstructive pulmonary disease) Diabetes mellitus with hyperglycemia, without long-term current use of insulin Erectile dysfunction GERD (gastroesophageal reflux disease) History of [place] (myocardial infarction) Hyperlipidemia Hypertension Hypogonadism Mass of upper lobe of right lung Primary adenocarcinoma of upper lobe of right lung Smoking addiction Uncontrolled diabetes mellitus Surgical History History of appendectomy History of colonoscopy (~12/2019) History of total shoulder replacement Right Family History Other Cancer Diabetes Heart disease Hypertension Social History Smoking and tobacco status: current every day smoker cigarettes Packs smoked per day: 1 Years cigarettes smoked: 49 [ Other cigarette details: Started at age 8] Second hand smoke exposure: Yes Smoking risk assessment/counseling performed?: No Alcohol intake: current Alcohol intake frequency: holidays/special occasions only Desire information about alcohol rehabilitation?: No Counseling given: No Desire information about substance/drug rehabilitation?: No Counseling given: No Adopted: No Caregiver/support person: No Lives independently: Yes Household members: family Housing: House Marital status: Number of children: 23 Number of grandchildren: 19 service: No Current occupational status: disabled Current gender identity: Male Vitals/I&O/Wt Last Vital Signs Temp 98.2 F 11/08/22 15:18 Pulse 122 H 11/08/22 18:30 Resp 17 11/08/22 18:30 BP 97/71 11/08/22 18:30 Pulse Ox 90 11/08/22 18:30 O2 Del Method Nasal Cannula 11/08/22 17:57 O2 Flow Rate 2 11/08/22 17:57 Weight last 48 hrs Weight 83.461 kg Physical Exam Narrative: Accompanied by his . Const: COMMON NORMALS: patient oriented x3 and alert GENERAL APPEARANCE: cooperative ORIENTATION/CONSCIOUSNESS: Yes awake HENMT: COMMON NORMALS: oropharynx normal Neck/C-Spine: COMMON NORMALS: no JVD Resp: COMMON NORMALS: normal respiratory effort and clear to auscultation bilaterally AUSCULTATION: breath sounds absent on the right Cardio: COMMON NORMALS: no JVD, regular rhythm, S1 normal heart sound present, S2 normal heart sound present and No murmurs present (Cardio) RHYTHM: regular rhythm HEART SOUNDS: S1 normal heart sound present and S2 normal heart sound present GI: COMMON NORMALS: Normal to inspection, nondistended, normoactive bowel sounds present, Soft to palpation and non-tender PALPATION: Yes Soft to palpation Extremity: COMMON NORMALS: no joint enlargement and no pedal edema Neuro: COMMON NORMALS: patient oriented x3 and moves all extremities SENSORIUM/ORIENTATION: Yes alert Skin: COMMON NORMALS: no rashes or lesions noted GENERAL SKIN EXAM: no rashes or lesions noted Data 11/08/22 15:40 11/08/22 15:40 Micro: Microbiology 11/08/22 17:45 Blood Culture - Preliminary Blood SPECIMEN COLLECTED A&P Assessment and plan (1) Pneumonia: Suspicion for possible pneumonia with dyspnea, cough productive of yellow/white sputum, sinus tachycardia, opacification of right hemithorax with underlying lung cancer. Possible postobstructive pneumonia. Increased interstitial opacities also noted in peripheral left lung, possibly pulm edema or atypical pneumonia. Discussed with him consideration of treatment options. Continue Levaquin which she received in ER. Broaden also with vancomycin for MRSA coverage. Collect sputum culture, MRSA PCR. Discussed with him difficulty of management in case postobstructive pneumonia. Consideration may need to be given to radiation therapy. Oxygen support. Normally on 2 L. At risk of potentially life-threatening respiratory failure with opacification of the right hemithorax. (2) Recurrent pleural effusion on right: Additional assessment tonight with CTA for possibility of PE. If PE start heparin drip, with plans for possible Pleurx catheter with pulmonology. Discussed and appreciate consultation. (3) Sinus tachycardia: Treatment of pneumonia as above. Additional assessment for PE with CTA discussed with him and spouse. (4) Primary adenocarcinoma of upper lobe of right lung: Oncology note reviewed. (5) Smoking addiction: Discussed with him consideration of nicotine patch and lozenges while here for cravings, but he says those usually do not work for him. He understands that smoking you are on the premises of the hospital facility is evaluation of federal law. He states that he smokes with his oxygen on, discussed with him to never smoke with oxygen due to risk of fire hazard and risk of severe airway joseph and/or life-threatening injuries. (6) Goals of care, counseling/discussion: He would not want CPR or intubation in case of cardiac or pulmonary arrest. In such case we would want to be kept comfortable and allowed to naturally. Plan SIRS: Suspected secondary to underlying pneumonia. Assess for possible PE. DM2: Accu-Cheks, sliding scale insulin, Lantus. CC diet GERD: HLD: Continue statin HTN monitor blood pressure, currently soft: Other medical problems. Servando with ER physician, ER documentation reviewed. Discussed with pulmonology. Oncology note reviewed. Attestations Medical Necessity Statement*: Admission of over 2 midnights anticipated for assessment of management of recurrent pleural effusion with suspected pneumonia with possible postobstructive pneumonia in a gentleman with metastatic lung adenocarcinoma. Diagnoses Pneumonia J18.9 Recurrent pleural effusion on right J90 Sinus tachycardia R00.0 Primary adenocarcinoma of upper lobe of right lung C34.11 Smoking addiction F17.200 Goals of care, counseling/discussion Z71.89
--- NOTE | 2022-11-08 19:07 | CTR_ITS ---
PROCEDURE INFORMATION: Exam: CTA Chest With Contrast Exam date and time: 11/08/2022 7:24 PM Age: 57 years old Clinical indication: Shortness of breath; Additional info: Assess for pe TECHNIQUE: Imaging protocol: Computed tomographic angiography of the chest with contrast. 3D rendering (Not supervised by radiologist): MIP and/or 3D reconstructed images were created by the technologist. Radiation optimization: All CT scans at this facility use at least one of these dose optimization techniques: automated exposure control; mA and/or kV adjustment per patient size (includes targeted exams where dose is matched to clinical indication); or iterative reconstruction. Contrast material: OMNI 350; Contrast volume: 78 ml; Contrast route: INTRAVENOUS (IV); REPORTING DATA: Count of CT and Cardiac NM exams in prior 12 months: This patient has received 4 known CTs and 0 known cardiac nuclear medicine studies in the 12 months prior to the current study. COMPARISON: 1. CT angio chest PE protcl [id number] 01/23/2019 5:[address] chest w con* [id number] 08/04/2022 4:35 PM 3. PT PET skulltothigh SUBSEQ [id number] 09/24/2022 9:19 AM RADIATION DOSE METRICS: Total DLP (mGy-cm): 467.1 FINDINGS: Pulmonary arteries: Normal. No pulmonary emboli. Aorta: Unremarkable. No aortic aneurysm. No aortic dissection. Lungs: Calcified granulomas in both lungs. Obstruction or collapse of the right middle and lower lobe bronchi. Some air bronchograms are present within the right upper lobe. There is complete consolidation of the right lung with diffuse inhomogeneity. 3.2 cm hypodense lesion in the posterosuperior right upper lobe. Patchy scattered airspace and ground-glass opacities throughout the left lung. Pleural spaces: Large right and small left pleural effusions. No pneumothorax. Heart: Pericardial effusion. Heart size is normal. Lymph nodes: Prominent mediastinal, substernal, and hilar lymph nodes are unchanged. Calcified mediastinal and left hilar lymph nodes. Kidneys and ureters: Left renal cyst, Hounsfield units less than 20. No follow-up imaging is recommended. Bones/joints: Unremarkable. No acute fracture. Soft tissues: Unremarkable. CT/CT angio chest PE protcl [id number] IMPRESSION: 1. No evidence for pulmonary embolus. 2. Inhomogenous consolidation of the entire right lung. This could represent diffuse malignant neoplastic involvement. 3. Large right and small left pleural effusions. 4. Prominent mediastinal and substernal lymph nodes, consistent with metastatic disease. 5. Pericardial effusion. 6. Pulmonary edema and/or pneumonia in the left lung. COMMENTS: Consistent with the [employer]'s Incidental Findings Committee white paper (J Am Jamil Radiol 2018): Any incidental renal lesion less than 1 cm or classified as too small to characterize, or any incidental cystic renal lesion characterized as simple-appearing, is likely benign. No follow-up imaging is recommended for these lesions per consensus recommendations based on imaging criteria.
[2022-11-08] MEDS: iohexol 350 mg/mL 500 mL Btl (per mL) IV (19:28)
[2022-11-08] MEDS: oxyCODONE 5 mg IR Tab/Cap PO (21:02)
[2022-11-08] MEDS: atorvastatin 40 mg Tablet 20 MG PO (21:03)
[2022-11-08] MEDS: nicotine 21 mg Patch 1 PATCH TRANSDERMA (21:03)
[2022-11-08 21:14] LABS: Glucose Point of Care 218 mg/dL (70-110)
--- NOTE | 2022-11-08 21:20 | PC.NURSE ---
Pt refused s/s insulin stating that this is what is CBG normally runs and he will not take it at this time because if my sugar gets too low I get sick sick .
[2022-11-08] MEDS: oxyCODONE 5 mg IR Tab/Cap 2.5 MG PO ×2 (21:51→22:29)
--- NOTE | 2022-11-08 21:56 | PC.PHAR ---
Pharmacokinetic dosing service Date: 11/08/22 Time: 2155 Objective: Patient: Wes Edward Floor: [id number] Age: 57 yo Serum creatinine: 0.6 mg/dL Height: 71.0 Inches Weight (kg): 81.845 Diagnosis: Relevant medical/social history: Cultures and sensitivities: Other labs: Assessment: IBW (kg): 75.30 Dosing wt(kg): 81.845 Estimated Creatinine clearance (ml/min): 130 Clearance limited to 130 ml/min to reduce risk of overdosing. CRCL method: Cockcroft and Gault using ibw(default). Drug selected: Vancomycin Loading dose (mg): 0 Vd (liters): 49.1 (factor used: 0.6 L/kg) Jakub (hr-1): 0.112 Half life (hrs): 6.19 Recommended dose: 1000 mg Interval: 8 hrs Infusion time (hrs): 1.5 Predicted peak (mcg/mL): 31.7 Predicted trough (mcg/mL): 15.31 Total body weight is being used for vancomycin dosing. Renal function is stable [ ] /unstable [ ] Recommendations: Give Vancomycin 1000 mg q 8 hrs with an expected Cpeak of 31.7 mcg/ml and an expected Ctrough of 15.31 mcg/ml Renal dosing of other antibiotics (review renal dosing of other medications and list guidelines here): Thank you for the consult, will continue to follow. Signature: Raisa Benavidez [facility]
[2022-11-08] MEDS: vancomycin 1,000 MG in sodium chloride 0.9% 250 ML 250 MG IV (22:07)
[2022-11-08] MEDS: morphine 4 mg/mL SDV 1 mL 1 MG IVP (23:28)
[2022-11-09] VITALS (21 sets, daily range): BP systolic 94–118; BP diastolic 61–86; PULSE 93–118; RESP 12–22; TEMP 36.2–37.2; O2SAT 90–98
--- NOTE | 2022-11-09 03:34 | PC.NURSE ---
Pt dry heaving, and c/o increased nausea. This nurse informed the pt that he zofran available for administration, but pt states he does this all the time and did not want medications given.
--- NOTE | 2022-11-09 03:36 | PC.NURSE ---
At approximately 2150 pt and his were discussing his code states and state that they want every done except intubation. Will refer to provider for review.
[2022-11-09] MEDS: ondansetron 2 mg/ML SDV 2 mL 4 MG IVP (03:41)
--- NOTE | 2022-11-09 03:51 | PC.NURSE ---
Pt had emesis at this time, small amount of partially digested food. Pt is now agreeable to take a dose of Zofran. Zofran administered per orders.
[2022-11-09] MEDS: sodium chloride 0.9% 1,000 ML 50 ML IV ×2 (04:46→22:50)
[2022-11-09] MEDS: vancomycin 1,000 MG in sodium chloride 0.9% 250 ML 250 MG IV ×3 (05:16→22:45)
[2022-11-09 06:22] LABS: Basophils % 0.1 %; Hematocrit 43.8 % (42.0-52.0); Hemoglobin 14.5 g/dL (11.7-16.6); Lymphocytes # 0.5 10^3/uL (0.8-4.8); Lymphocytes % 4.9 %; Mean Corpuscular HGB Conc 33.1 g/dL (30.0-36.0); Mean Corpuscular Volume 84.7 fl (80-94); Mean Platelet Volume 8.9 fL (7.4-10.4); Monocytes # 0.1 10^3/uL (0.2-0.9); Monocytes % 0.9 %; Neutrophils # 9.33 10^3/uL (1.8-7.7); Neutrophils % 93.5 %; Nucleated Red Blood Cells % 0 %; Platelet Count 332 10^3/cmm (130-400); Red Blood Count 5.17 10^6/uL (4.1-5.3); Red Cell Distribution Width 13.5 % (12.1-15.1)
[2022-11-09 06:46] LABS: Alanine Aminotransferase 9 U/L (0-41); Albumin Level 2.9 g/dL (3.5-5.2); Alkaline Phosphatase 83 U/L (40-130); Anion Gap 14.6 (5-19); Aspartate Amino Transferase 10 U/L (0-40); Blood Urea Nitrogen 13 mg/dL (6-20); Calcium 8.7 mg/dL (8.5-10.5); Carbon Dioxide 28 mmol/L (22-29); Chloride 97 mmol/L (98-107); Globulin 3.3 g/dL (1.3-4.6); Glomerular Filtration Rate 138.4 mL/min (90-130); Glucose 308 mg/dL (65-115); Osmolality Calculated 292 mOsm/kg (285-295); Potassium 4.6 mmol/L (3.5-5.1); Sodium 135 mmol/L (136-145); Total Bilirubin 0.3 mg/dL (0.15-1.2); Total Protein 6.2 g/dL (6.6-8.7)
[2022-11-09 06:50] LABS: Creatinine Clr Calc Pharmacy 149.3205
[2022-11-09 07:06] LABS: Glucose Point of Care 279 mg/dL (70-110)
[2022-11-09] MEDS: insulin lispro 100 unit/1 mL SUBCUT ×2 (10:17→21:51)
[2022-11-09] MEDS: insulin glargine 100 units/1 mL 12.5 UNIT SUBCUT (10:18)
[2022-11-09] MEDS: enoxaparin 40 mg/0.4 mL Syringe SUBCUT (10:18)
--- NOTE | 2022-11-09 10:25 | PC.NURSE ---
Dr. Vidal changed dose of Insulin for patient due to NPO. Insulin was given after 10 am waiting for long acting from Pharmacy. This nurse ask for the aid to wait until 1145 to take blood sugar.
[2022-11-09 11:50] LABS: Glucose Point of Care 248 mg/dL (70-110)
--- NOTE | 2022-11-09 13:14 | PC.NURSE ---
notified Dr. Vidal blood sugar 248. Patient refused insulin due to NPO status
--- NOTE | 2022-11-09 13:31 | SC_ITS ---
WS: [id number] C-ARM RADIOGRAPHS CHEST; 6 IMAGES HISTORY: Port placement COMPARISON: None available. Intraoperative imaging during Mediport placement. Access through the LEFT subclavian vein. SC/C-arm FL for Pacemaker IMPRESSION: Intraoperative imaging during left-sided Mediport placement.
--- NOTE | 2022-11-09 16:03 | P.CONIM_ITS ---
Providers/Reason For Consult Consulting Physician/Specialty*: Yariel Rocha MD, FCCP/pulmonary critical care Reason for Consult*: Current right pleural effusion Requesting Physician: Darnell Vidal Attending Physician: Darnell Vidal Primary Care Provider: Kassy Ashley NP History of Present Illness History of Present Illness Mr. Wes Edward is a 57-year-old male, chronic smoker, recently diagnosed with metastatic moderately differentiated lung adenocarcinoma with PET active metastatic retroperitoneal lymphadenopathy-has evidence of recurrent right pleural effusion. I drained about 2.3 L sanguinous pleural fluid on 10/18/2022. He came back to emergency room on 10/29/2022 and then scheduled as outpatient for thoracentesis on 11/03/2022 and I removed 206 0 cc sanguinous pleural fluid. Cytology consistent with metastatic adenocarcinoma. At that time he was scheduled to start chemotherapy this week and I have told patient and his that we may have to place a Pleurx catheter if his effusion recurs. He came to ER on 11/08/2022 complaining of worsening shortness of breath. He was using 2 L home oxygen currently requiring 3 to 4 L by nasal cannula. He has not started his chemotherapy yet. CTA was obtained which ruled out pulmonary embolus. There was inhomogeneous consolidation of entire right lung. There were large right and small left pleural effusions. Today he was scheduled for Port-A-Cath placement by general surgery in the OR under MAC and so I decided to put a Pleurx catheter post Port-A-Cath placement in the OR. Patient reported having cough and increasing shortness of breath and feels fullness on his right side of the chest. With previous thoracentesis he felt better for 1 to 2 weeks but with after more recent thoracentesis he is feels his fluid is back again. Review of Systems General: Reports: 10 or more systems reviewed and unremarkable except in HPI and below Medications/Allergies Home Medications Medication Instructions Recorded Confirmed Last Taken Type diclofenac sodium 1 % topical gel 4 g topical QID #100 grams 03/02/22 11/08/22 11/08/22 Rx (Voltaren Arthritis Pain) mupirocin 2 % topical ointment 1 applic topical BID #15 grams 04/01/22 11/08/22 11/02/22 Rx blood sugar diagnostic (Blood #50 ea 04/25/22 11/08/22 10/14/22 Rx Glucose Test strips) blood-glucose meter #1 ea 04/25/22 11/08/22 10/14/22 Rx lancets (Comfort Lancets) #100 ea 04/25/22 11/08/22 10/14/22 Rx atorvastatin 20 mg tablet 20 mg PO .QHS 30 days #30 tabs 06/08/22 11/08/22 11/08/22 Rx lactulose 20 gram/30 mL oral 20 g (30 mL) PO BID PRN 06/08/22 11/08/22 2 Weeks Ago Rx solution constipation 30 days #1,800 mL ~10/04/22 metformin 500 mg tablet,extended 1,000 mg PO DAILY #60 tabs 06/08/22 11/08/22 11/08/22 Rx release 24 hr albuterol sulfate 90 mcg/actuation 2 puff inhalation 6XD PRN 08/02/22 11/08/22 11/02/22 Rx aerosol inhaler (Ventolin HFA) shortness of breath or wheezing #8.5 grams fluticasone fur. 200 mcg-umeclid 1 inh inhalation Q24H #60 ea 08/02/22 11/08/22 11/02/22 Rx 62.5 mcg-vilant 25 mcg inhalat.powder (Trelegy Ellipta) NEBULIZER MACHINE AND TUBING #1 ea 08/08/22 11/08/22 10/14/22 Rx SUPPLIES OVERNIGHT AT HOME SLEEP STUDY #1 ea 08/08/22 11/08/22 10/14/22 Rx OXYGEN AT 2 LITERS PER N/C #1 ea 08/08/22 11/08/22 10/14/22 Rx CONTINUOUS ipratropium 0.5 mg-albuterol 3 mg 3 ml inhalation QID PRN shortness 08/08/22 11/08/22 11/03/22 Rx (2.5 mg base)/3 mL nebulization of breath or wheezing #180 mL soln acetaminophen 325 mg capsule 325 mg PO QID PRN Pain 08/15/22 11/08/22 11/02/22 History (Tylenol) guaifenesin 1,200 mg tablet, 1,200 mg PO Q12H PRN congestion 08/15/22 11/08/22 08/15/22 History extended release 12 hr (Mucinex) ibuprofen 600 mg tablet 600 mg PO Q6H PRN Pain 08/15/22 11/08/22 1 Month Ago H istory ~09/20/22 dulaglutide 1.5 mg/0.5 mL 1.5 mg (0.5 mL) SUBCUT .weekly #2 08/31/22 11/08/22 11/03/22 Rx subcutaneous pen injector mL (Trulicity) sildenafil 100 mg tablet (Viagra) 100 mg PO DAILY PRN sexual 08/31/22 11/08/22 Unknown Rx activity #10 tabs insulin glargine 100 unit/mL (3 25 unit (0.25 mL) SUBCUT BID #15 mL 09/08/22 11/08/22 11/02/22 Rx mL) subcutaneous pen pen needle, diabetic 33 gauge x #100 ea 09/09/22 11/08/22 10/14/22 Rx 5/32 (Comfort EZ Pen [place]) tiotropium bromide 2.5 2 puff inhalation DAILY 30 days #4 10/06/22 11/08/2207/15 Rx mcg/actuation mist for inhalation grams (Spiriva Respimat) dapagliflozin 10 mg tablet 10 mg PO DAILY 10/13/22 11/08/22 11/08/22 History (Farxiga) polyethylene glycol 3350 17 gram 17 g PO DAILY PRN laxative effect 10/13/22 11/08/22 10/15/22 Rx oral powder packet (Miralax) #100 ea WHEELCHAIR WITH FOOT PEDALS #1 ea 11/04/22 11/08/22 Unknown Rx oxycodone 5 mg tablet 5 mg PO Q6H PRN pain 5 days #20 11/04/22 11/08/22 Unknown Rx tabs Allergies Allergy/AdvReac Type Severity Reaction Status Date / Time codeine Allergy ALGY-Rash Verified 11/08/22 15:22 latex Allergy ALGY-Rash Verified 11/08/22 15:22 Current Medications Generic Name Dose Route Start Last Admin Trade Name Freq PRN Reason Stop Dose Admin Atorvastatin Calcium 20 mg 11/08/22 21:00 11/08/22 21:03 Atorvastatin 40 Mg Tablet PO 20 mg BEDTIME LEO Administration Enoxaparin Sodium 40 mg 11/09/22 10:00 11/09/22 10:18 Enoxaparin 40 Mg/0.4 Ml Syringe SUBCUT 40 mg Q24H LEO Administration Vancomycin HCl 1,000 mg/ 250 mls @ 250 mls/hr 11/08/22 22:00 11/09/22 15:15 Sodium Chloride IV 250 mls/hr Q8H LEO Administration Sodium Chloride 1,000 mls @ 50 mls/hr 11/09/22 04:45 11/09/22 04:46 Sodium Chloride 0.9% IV 50 mls/hr .Q20H LEO Administration Insulin Glargine 25 unit 11/09/22 09:00 11/09/22 10:19 Insulin Glargine 100 Units/1 Ml SUBCUT Not Given BID LEO Insulin Human Lispro 0 unit 11/08/22 21:00 11/09/22 13:14 Insulin Lispro 100 Unit/1 Ml SUBCUT Not Given WM&BEDTIME LEO Protocol Nicotine 1 patch 11/08/22 20:08 11/08/22 21:03 Nicotine 21 Mg Patch TRANSDERMA 1 patch DAILY PRN Administration WITHDRAWAL Ondansetron HCl 4 mg 11/08/22 20:08 11/09/22 03:41 Ondansetron 2 Mg/Ml Sdv 2 Ml IVP 4 mg Q8H PRN Administration vomiting, or N/V if npo PFSH Acute PFSH: Medical History Abdominal pain Anxiety Caries COPD (chronic obstructive pulmonary disease) Diabetes mellitus with hyperglycemia, without long-term current use of insulin Erectile dysfunction GERD (gastroesophageal reflux disease) History of [place] (myocardial infarction) Hyperlipidemia Hypertension Hypogonadism Mass of upper lobe of right lung Primary adenocarcinoma of upper lobe of right lung Smoking addiction Uncontrolled diabetes mellitus Surgical History History of appendectomy History of colonoscopy (~12/2019) History of total shoulder replacement Right Family History Other Cancer Diabetes Heart disease Hypertension Social History Smoking and tobacco status: current every day smoker cigarettes Packs smoked per day: 1 Years cigarettes smoked: 49 [ Other cigarette details: Started at age 8] Second hand smoke exposure: Yes Smoking risk assessment/counseling performed?: No Alcohol intake: current Alcohol intake frequency: holidays/special occasions only Desire information about alcohol rehabilitation?: No Counseling given: No Desire information about substance/drug rehabilitation?: No Counseling given: No Adopted: No Caregiver/support person: No Lives independently: Yes Household members: family Housing: House Marital status: Number of children: 23 Number of grandchildren: 19 service: No Current occupational status: disabled Current gender identity: Male Vitals/I&O/Wt Last Vital Signs Temp 97.9 F 11/09/22 16:00 Pulse 101 H 11/09/22 16:00 Resp 16 11/09/22 16:00 BP 108/75 11/09/22 16:00 Pulse Ox 93 11/09/22 16:00 O2 Del Method Nasal Cannula 11/09/22 16:00 O2 Flow Rate 2 11/09/22 16:00 11/09/22 11/09/22 11/09/22 06:59 14:59 22:59 Intake Total 500 / 1010 Balance 500 / 1010 Weight last 48 hrs Weight 184 lb 9 oz Weight 180 lb 7 oz Weight 184 lb Physical Exam Narrative: General: alert, NAD HEENT: conj clear, EOMI, PERRL, mmm, Neck: supple, no meningismus Heme: no cervical LAP Respiratory: Inspection: No visible deformity of the chest wall Palpation: Trachea is mildly deviated to the right, bilateral symmetric expansion Percussion: Dullness to percussion on right side of the lung Auscultation: Reduced breath sounds on right side of the lung Cardiovascular: rrr, nl s1s2, no mrg Abdomen: soft, nt, nd, no r/g, bs+ Extremities: pulses +, no edema, no c/c : no CVA tenderness Skin: intact, no rash MSK: no back or neck pain Neurologic: grossly intact Data 11/09/22 06:05 11/09/22 06:05 Other Labs: Radiology Impressions Chest CTA 11/08/22 19:07 IMPRESSION: 1. No evidence for pulmonary embolus. 2. Inhomogenous consolidation of the entire right lung. This could represent diffuse malignant neoplastic involvement. 3. Large right and small left pleural effusions. 4. Prominent mediastinal and substernal lymph nodes, consistent with metastatic disease. 5. Pericardial effusion. 6. Pulmonary edema and/or pneumonia in the left lung. COMMENTS: Consistent with the [employer] [place] [employer]'s Incidental Findings Committee white paper (J Am Jamil Radiol 2018): Any incidental renal lesion less than 1 cm or classified as too small to characterize, or any incidental cystic renal lesion characterized as simple-appearing, is likely benign. No follow-up imaging is recommended for these lesions per consensus recommendations based on imaging criteria. Laboratory Results WBC 10.0 10^3/uL (4.0-10.0) 11/09/22 06:05 RBC 5.17 10^6/uL (4.1-5.3) 11/09/22 06:05 Hgb 14.5 g/dL (11.7-16.6) 11/09/22 06:05 Hct 43.8 % (42.0-52.0) 11/09/22 06:05 MCV 84.7 fl (80-94) 11/09/22 06:05 MCH 28.0 pg (28.0-34.0) 11/09/22 06:05 MCHC 33.1 g/dL (30.0-36.0) 11/09/22 06:05 RDW 13.5 % (12.1-15.1) 11/09/22 06:05 Plt Count 332 10^3/cmm (130-400) 11/09/22 06:05 MPV 8.9 fL (7.4-10.4) 11/09/22 06:05 Neut % (Auto) 93.5 % 11/09/22 06:05 Lymph % (Auto) 4.9 % 11/09/22 06:05 [place] % (Auto) 0.9 % 11/09/22 06:05 Eos % (Auto) 0.0 % 11/09/22 06:05 Baso % (Auto) 0.1 % 11/09/22 06:05 Neut # (Auto) 9.33 10^3/uL (1.8-7.7) H 11/09/22 06:05 Lymph # (Auto) 0.5 10^3/uL (0.8-4.8) L 11/09/22 06:05 [place] # (Auto) 0.1 10^3/uL (0.2-0.9) L 11/09/22 06:05 Eos # (Auto) 0.0 10^3/uL (0.0-0.8) 11/09/22 06:05 Baso # (Auto) 0.0 10^3/uL (0.0-0.1) 11/09/22 06:05 Nucleated RBC % (auto) 0 % 11/09/22 06:05 Nucleated RBCs # 0.0 /100WBC 11/09/22 06:05 PT 13.10 SECONDS (12.1-14.9) 11/08/22 16:21 INR 0.96 (0.8-1.2) 11/08/22 16:21 APTT 30.3 SECONDS (23.9-36.7) 11/08/22 16:21 Sodium 135 mmol/L (136-145) L 11/09/22 06:05 Potassium 4.6 mmol/L (3.5-5.1) 11/09/22 06:05 Chloride 97 mmol/L (98-107) L 11/09/22 06:05 Carbon Dioxide 28 mmol/L (22-29) 11/09/22 06:05 Anion Gap 14.6 (5-19) 11/09/22 06:05 BUN 13 mg/dL (6-20) 11/09/22 06:05 Creatinine 0.6 mg/dL (0.7-1.2) L 11/09/22 06:05 GFR Calculation 138.4 mL/min (90-130) H 11/09/22 06:05 Glucose 308 mg/dL (65-115) H 11/09/22 06:05 POC Glucose 248 mg/dL (70-110) H 11/09/22 11:47 Calculated Osmolality 292 mOsm/kg (285-295) 11/09/22 06:05 Calcium 8.7 mg/dL (8.5-10.5) 11/09/22 06:05 Total Bilirubin 0.3 mg/dL (0.15-1.2) 11/09/22 06:05 AST 10 U/L (0-40) 11/09/22 06:05 ALT 9 U/L (0-41) 11/09/22 06:05 Alkaline Phosphatase 83 U/L (40-130) 11/09/22 06:05 NT-Pro-B Natriuret Pep 192 pg/mL (0-125) H 11/08/22 15:40 Total Protein 6.2 g/dL (6.6-8.7) L 11/09/22 06:05 Albumin 2.9 g/dL (3.5-5.2) L 11/09/22 06:05 Globulin 3.3 g/dL (1.3-4.6) 11/09/22 06:05 Micro: Microbiology 11/08/22 21:15 MRSA Culture - Final Nose A&P Assessment and plan (1) Recurrent pleural effusion on right: Patient underwent thoracentesis on 10/18/2022-removed 2300 cc sanguinous fluid and again 11/03/2022 removed 2060 cc sanguinous fluid. However due to recurrent pleural effusion causing symptomatic dyspnea-I have discussed with patient about Pleurx catheter placement. He is scheduled to get his Port-A-Cath today evening in the OR and I will coordinate with the general surgery team and will proceed with Pleurx catheter placement. It has to be noted that postthoracentesis chest x-ray is did not completely expand despite draining more than 2 L on both occasions-chest x-ray showed complete whiteout which may be secondary to complete consolidation of right lung due to malignancy I have explained this to the patient and his however the reaccumulation of fluid is also contributing to dyspnea and Pleurx drain may help drain the fluid but will not help expand the lung. I also explained about the complications associate needed with indwelling Pleurx catheter which includes infection. They verbalized understanding and agreed with the procedure (2) Primary adenocarcinoma of upper lobe of right lung: #Metastatic adenocarcinoma of lung MRI no evidence of brain mets Tissue molecular testing 10/24/2022 negative for any targetable mutation but PD-L1 was positive Recently decision was made by oncology to start pembrolizumab/carboplatin/Alimta every 3 weeks?pending insurance approval Today patient is scheduled for Port-A-Cath placement Consult Attestations Medical Necessity Statement: Deferred to hospitalist Time Spent in Patient Care: Greater than 35 minutes (>than 50% of time sp ent in counselling and/or direct pt care on unit) . Coding Level of Care Code 41859 Diagnoses Recurrent pleural effusion on right J90 Primary adenocarcinoma of upper lobe of right lung C34.11 Time Spent (min) 57
--- NOTE | 2022-11-09 16:07 | ANES.PREANE2 ---
Pre-Anesthetic Assessment Height/Weight: Height 1.8 m Weight 83.716 kg Temp Pulse Resp BP Pulse Ox O2 Del Method O2 Flow Rate 97.9 F 101 H 16 108/75 93 Nasal Cannula 2 11/09/22 16:00 11/09/22 16:00 11/09/22 16:00 11/09/22 16:00 11/09/22 16:00 11/09/22 16:00 11/09/22 16:00 Operation Date: 11/09/22 16:30 Proposed Procedures p Portacath Placement(Not Applicable) - Omar Burrell DO Familial anesthetic complications: none Was Beta Gopi taken within 24 hours: N/A Was Clonidine taken within 24 hours: N/A Social Tobacco and No alcohol Exam alert, oriented x 3 and regular rate & rhythm No distress, no breath sounds on right Airway Submandibular: within normal limits Cervical ROM: within normal limits Mallampati: Class II Dentition: false Pulmonary Chronic Obstructive Pulmonary Disease and Sleep Apnea Lung CA, pleural effusion GI Gastroesophageal Reflux Disease Metabolic Diabetes Mellitus and Hyperlipidemia Musc/el Lower Back Pain Neuropsych Anxiety and Neuropathy Anesthetic Plan ASA status: 3 Anesthesia: Choice Medications/Allergies Home Medications Medication Instructions Recorded Confirmed Last Taken Type diclofenac sodium 1 % topical gel 4 g topical QID #100 grams 03/02/22 11/08/22 11/08/22 Rx (Voltaren Arthritis Pain) mupirocin 2 % topical ointment 1 applic topical BID #15 grams 04/01/22 11/08/22 11/02/22 Rx blood sugar diagnostic (Blood #50 ea 04/25/22 11/08/22 10/14/22 Rx Glucose Test strips) blood-glucose meter #1 ea 04/25/22 11/08/22 10/14/22 Rx lancets (Comfort Lancets) #100 ea 04/25/22 11/08/22 10/14/22 Rx atorvastatin 20 mg tablet 20 mg PO .QHS 30 days #30 tabs 06/08/22 11/08/22 11/08/22 Rx lactulose 20 gram/30 mL oral 20 g (30 mL) PO BID PRN 06/08/22 11/08/22 2 Weeks Ago Rx solution constipation 30 days #1,800 mL ~10/04/22 metformin 500 mg tablet,extended 1,000 mg PO DAILY #60 tabs 1111/08/22 11/08/22 Rx release 24 hr albuterol sulfate 90 mcg/actuation 2 puff inhalation 6XD PRN 08/02/22 11/08/22 11/02/22 Rx aerosol inhaler (Ventolin HFA) shortness of breath or wheezing #8.5 grams fluticasone fur. 200 mcg-umeclid 1 inh inhalation Q24H #60 ea 08/02/22 11/08/22 11/02/22 Rx 62.5 mcg-vilant 25 mcg inhalat.powder (Trelegy Ellipta) NEBULIZER MACHINE AND TUBING #1 ea 08/08/22 11/08/22 10/14/22 Rx SUPPLIES OVERNIGHT AT HOME SLEEP STUDY #1 ea 08/08/22 11/08/22 10/14/22 Rx OXYGEN AT 2 LITERS PER N/C #1 ea 08/08/22 11/08/22 10/14/22 Rx CONTINUOUS ipratropium 0.5 mg-albuterol 3 mg 3 ml inhalation QID PRN shortness 08/08/22 11/08/22 11/03/22 Rx (2.5 mg base)/3 mL nebulization of breath or wheezing #180 mL soln acetaminophen 325 mg capsule 325 mg PO QID PRN Pain 08/15/22 11/08/22 11/02/22 History (Tylenol) guaifenesin 1,200 mg tablet, 1,200 mg PO Q12H PRN congestion 08/15/22 11/08/22 08/15/22 History extended release 12 hr (Mucinex) ibuprofen 600 mg tablet 600 mg PO Q6H PRN Pain 08/15/22 11/08/22 1 Month Ago History ~09/20/22 dulaglutide 1.5 mg/0.5 mL 1.5 mg (0.5 mL) SUBCUT .weekly #2 08/31/22 11/08/22 11/03/22 Rx subcutaneous pen injector mL (Trulicity) sildenafil 100 mg tablet (Viagra) 100 mg PO DAILY PRN sexual 08/31/22 11/08/22 Unknown Rx activity #10 tabs insulin glargine 100 unit/mL (3 25 unit (0.25 mL) SUBCUT BID #15 mL 09/08/22 11/08/22 11/02/22 Rx mL) subcutaneous pen pen needle, diabetic 33 gauge x #100 ea 09/09/22 11/08/22 10/14/22 Rx /32 (Comfort EZ Pen [place]) tiotropium bromide 2.5 2 puff inhalation DAILY 30 days #4 10/06/22 11/08/22 11/02/22 Rx mcg/actuation mist for inhalation grams (Spiriva Respimat) dapagliflozin 10 mg tablet 10 mg PO DAILY 10/13/22 11/08/22 11/08/22 History (Farxiga) polyethylene glycol 3350 17 gram 17 g PO DAILY PRN laxative effect 10/13/22 11/08/22 10/15/22 Rx oral powder packet (Miralax) #100 ea WHEELCHAIR WITH FOOT PEDALS #1 ea 11/04/22 11/08/22 Unknown Rx oxycodone 5 mg tablet 5 mg PO Q6H PRN pain 5 days #20 11/04/22 11/08/22 Unknown Rx tabs Allergies Allergy/AdvReac Type Severity Reaction Status Date / Time codeine Allergy ALGY-Rash Verified 11/08/22 15:22 latex Allergy ALGY-Rash Verified 11/08/22 15:22 Current Medications Generic Name Dose Route Start Last Admin Trade Name Freq PRN Reason Stop Dose Admin Atorvastatin Calcium 20 mg 11/08/22 21:00 11/08/22 21:03 Atorvastatin 40 Mg Tablet PO 20 mg BEDTIME LEO Administration Enoxaparin Sodium 40 mg 11/09/22 10:00 11/09/22 10:18 Enoxaparin 40 Mg/0.4 Ml Syringe SUBCUT 40 mg Q24H LEO Administration Vancomycin HCl 1,000 mg/ 250 mls @ 250 mls/hr 11/08/22 22:00 11/09/22 15:15 Sodium Chloride IV 250 mls/hr Q8H LEO Administration Sodium Chloride 1,000 mls @ 50 mls/hr 11/09/22 04:45 11/09/22 04:46 Sodium Chloride 0.9% IV 50 mls/hr .Q20H LEO Administration Insulin Glargine 25 unit 11/09/22 09:00 11/09/22 10:19 Insulin Glargine 100 Units/1 Ml SUBCUT Not Given BID REPLACED BY [facility] Insulin Human Lispro 0 unit 11/08/22 21:00 11/09/22 13:14 Insulin Lispro 100 Unit/1 Ml SUBCUT Not Given WM&BEDTIME LEO Protocol Nicotine 1 patch 11/08/22 20:08 11/08/22 21:03 Nicotine 21 Mg Patch TRANSDERMA 1 patch DAILY PRN Administration WITHDRAWAL Ondansetron HCl 4 mg 11/08/22 20:08 11/09/22 03:41 Ondansetron 2 Mg/Ml Sdv 2 Ml IVP 4 mg Q8H PRN Administration vomiting, or N/V if npo PFSH Anesthesia Medical History Abdominal pain Anxiety Caries COPD (chronic obstructive pulmonary disease) Diabetes mellitus with hyperglycemia, without long-term current use of insulin Erectile dysfunction GERD (gastroesophageal reflux disease) History of [place] (myocardial infarction) Hyperlipidemia Hypertension Hypogonadism Mass of upper lobe of right lung Primary adenocarcinoma of upper lobe of right lung Smoking addiction Uncontrolled diabetes mellitus Surgical History History of appendectomy History of colonoscopy (~12/2019) History of total shoulder replacement Right Family History Other Cancer Diabetes Heart disease Hypertension Social History Smoking and tobacco status: current every day smoker cigarettes Packs smoked per day: 1 Years cigarettes smoked: 49 [ Other cigarette details: Started at age 8] Second hand smoke exposure: Yes Smoking risk assessment/counseling performed?: No Alcohol intake: current Alcohol intake frequency: holidays/special occasions only Desire information about alcohol rehabilitation?: No Counseling given: No Desire information about substance/drug rehabilitation?: No Counseling given: No Adopted: No Caregiver/support person: No Lives independently: Yes Household members: family Housing: House Marital status: Number of children: 23 Number of grandchildren: 19 service: No Current occupational status: disabled Current gender identity: Male Data Anesthesia 11/09/22 06:05 11/09/22 06:05 Short CBC 11/08/22 11/09/22 Range/Units 15:40 06:05 WBC 10.3 H 10.0 (4.0-10.0) 10^3/uL Hgb 15.4 14.5 (11.7-16.6) g/dL Hct 46.5 43.8 (42.0-52.0) % MCV 83.5 84.7 (80-94) fl Plt Count 371 332 (130-400) 10^3/cmm Neut % (Auto) 77.4 93.5 % Neut # (Auto) 7.99 H 9.33 H (1.8-7.7) 10^3/uL BMP 11/08/22 11/09/22 15:40 06:05 Sodium 133 L 135 L Potassium 4.1 4.6 Chloride 95 L 97 L Carbon Dioxide 29 28 BUN 9 13 Creatinine 0.6 L 0.6 L Glucose 225 H 308 H Calcium 9.0 8.7 Cardiac Enzymes 11/08/22 Range/Units 15:40 NT-Pro-B Natriuret Pep 192 H (0-125) pg/mL Liver Function 11/08/22 11/09/22 Range/Units 15:40 06:05 Total Bilirubin 0.4 0.3 (0.15-1.2) mg/dL AST 11 10 (0-40) U/L ALT 11 9 (0-41) U/L Alkaline Phosphatase 80 83 (40-130) U/L Albumin 2.8 L 2.9 L (3.5-5.2) g/dL Coags 11/08/22 16:21 PT 13.10 INR 0.96 APTT 30.3 Microbiology 11/08/22 21:15 MRSA Culture - Final Nose Cardiac Studies: Echocardiogram Limited Views 11/09/22
--- NOTE | 2022-11-09 16:48 | PM.CONSULT ---
Providers/Reason For Consult Consulting Physician/Specialty*: Dr. 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 Oncology has requested Mediport placement for chemotherapy access. Review of Systems General: Reports: 10 or more systems reviewed and unremarkable except in HPI and below Medications/Allergies Home Medications Medication Instructions Recorded Confirmed Last Taken Type diclofenac sodium 1 % topical gel 4 g topical QID #100 grams 03/02/22 11/08/22 11/08/22 Rx (Voltaren Arthritis Pain) mupirocin 2 % topical ointment 1 applic topical BID #15 grams 04/01/22 11/08/22 11/02/22 Rx blood sugar diagnostic (Blood #50 ea 04/25/22 11/08/22 10/14/22 Rx Glucose Test strips) blood-glucose meter #1 ea 04/25/22 11/08/22 10/14/22 Rx lancets (Comfort Lancets) #100 ea 04/25/22 11/08/22 10/14/22 Rx atorvastatin 20 mg tablet 20 mg PO .QHS 30 days #30 tabs 06/08/22 11/08/22 11/08/22 Rx lactulose 20 gram/30 mL oral 20 g (30 mL) PO BID PRN 06/08/22 11/08/22 2 Weeks Ago Rx solution constipation 30 days #1,800 mL ~10/04/22 metformin 500 mg tablet,extended 1,000 mg PO DAILY #60 tabs 06/08/22 11/08/22 11/08/22 Rx release 24 hr albuterol sulfate 90 mcg/actuation 2 puff inhalation 6XD PRN 08/02/22 11/08/22 11/02/22 Rx aerosol inhaler (Ventolin HFA) shortness of breath or wheezing #8.5 grams fluticasone fur. 200 mcg-umeclid 1 inh inhalation Q24H #60 ea 08/02/22 11/08/22 11/02/22 Rx 62.5 mcg-vilant 25 mcg inhalat.powder (Trelegy Ellipta) NEBULIZER MACHINE AND TUBING #1 ea 08/08/22 11/08/22 10/14/22 Rx SUPPLIES OVERNIGHT AT HOME SLEEP STUDY #1 ea 08/08/22 11/08/22 10/14/22 Rx OXYGEN AT 2 LITERS PER N/C #1 ea 08/08/22 11/08/22 10/14/22 Rx CONTINUOUS ipratropium 0.5 mg-albuterol 3 mg 3 ml inhalation QID PRN shortness 08/08/22 11/08/22 11/03/22 Rx (2.5 mg base)/3 mL nebulization of breath or wheezing #180 mL soln acetaminophen 325 mg capsule 325 mg PO QID PRN Pain 08/15/22 11/08/22 11/02/22 History (Tylenol) guaifenesin 1,200 mg tablet, 1,200 mg PO Q12H PRN congestion 08/15/22 11/08/22 08/15/22 History extended release 12 hr (Mucinex) ibuprofen 600 mg tablet 600 mg PO Q6H PRN Pain 08/15/22 11/08/22 1 Month Ago History ~09/20/22 dulaglutide 1.5 mg/0.5 mL 1.5 mg (0.5 mL) SUBCUT .weekly #2 08/31/22 11/08/22 11/03/22 Rx subcutaneous pen injector mL (Trulicity) sildenafil 100 mg tablet (Viagra) 100 mg PO DAILY PRN sexual 08/31/22 11/08/22 Unknown Rx activity #10 tabs insulin glargine 100 unit/mL (3 25 unit (0.25 mL) SUBCUT BID #15 mL 09/08/22 11/08/22 11/02/22 Rx mL) subcutaneous pen pen needle, diabetic 33 gauge x #100 ea 09/09/22 11/08/22 10/14/22 Rx 5/32 (Comfort EZ Pen [place]) tiotropium bromide 2.5 2 puff inhalation DAILY 30 days #4 10/06/22 11/08/22 11/02/22 Rx mcg/actuation mist for inhalation grams (Spiriva Respimat) dapagliflozin 10 mg tablet 10 mg PO DAILY 10/13/22 11/08/22 11/08/22 History (Farxiga) polyethylene glycol 3350 17 gram 17 g PO DAILY PRN laxative effect 10/13/22 11/08/22 10/15/22 Rx oral powder packet (Miralax) #100 ea WHEELCHAIR WITH FOOT PEDALS #1 ea 11/04/22 11/08/22 Unknown Rx oxycodone 5 mg tablet 5 mg PO Q6H PRN pain 5 days #20 11/04/22 11/08/22 Unknown Rx tabs Allergies Allergy/AdvReac Type Severity Reaction Status Date / Time codeine Allergy ALGY-Rash Verified 11/08/22 15:22 latex Allergy ALGY-Rash Verified 11/08/22 15:22 Current Medications Generic Name Dose Route Start Last Admin Trade Name Freq PRN Reason Stop Dose Admin Atorvastatin Calcium 20 mg 11/08/22 21:00 11/08/22 21:03 Atorvastatin 40 Mg Tablet PO 20 mg BEDTIME ELO Administration Enoxaparin Sodium 40 mg 11/09/22 10:00 11/09/22 10:18 Enoxaparin 40 Mg/0.4 Ml Syringe SUBCUT 40 mg Q24H LEO Administration Vancomycin HCl 1,000 mg/ 250 mls @ 250 mls/hr 11/08/22 22:00 11/09/22 15:15 Sodium Chloride IV 250 mls/hr Q8H LEO Administration Sodium Chloride 1,000 mls @ 50 mls/hr 11/09/22 04:45 11/09/22 04:46 Sodium Chloride 0.9% IV 50 mls/hr .Q20H LEO Administration Insulin Glargine 25 unit 11/09/22 09:00 11/09/22 10:19 Insulin Glargine 100 Units/1 Ml SUBCUT Not Given BID LEO Insulin Human Lispro 0 unit 11/08/22 21:00 11/09/22 13:14 Insulin Lispro 100 Unit/1 Ml SUBCUT Not Given WM&BEDTIME LEO Protocol Nicotine 1 patch 11/08/22 20:08 11/08/22 21:03 Nicotine 21 Mg Patch TRANSDERMA 1 patch DAILY PRN Administration WITHDRAWAL Ondansetron HCl 4 mg 11/08/22 20:08 11/09/22 03:41 Ondansetron 2 Mg/Ml Sdv 2 Ml IVP 4 mg Q8H PRN Administration vomiting, or N/V if npo PFSH Acute PFSH: Medical History Abdominal pain Anxiety Caries COPD (chronic obstructive pulmonary disease) Diabetes mellitus with hyperglycemia, without long-term current use of insulin Erectile dysfunction GERD (gastroesophageal reflux disease) History of FL (myocardial infarction) Hyperlipidemia Hypertension Hypogonadism Mass of upper lobe of right lung Primary adenocarcinoma of upper lobe of right lung Smoking addiction Uncontrolled diabetes mellitus Surgical History History of appendectomy History of colonoscopy (~12/2019) History of total shoulder replacement Right Family History Other Cancer Diabetes Heart disease Hypertension Social History Smoking and tobacco status: current every day smoker cigarettes Packs smoked per day: 1 Years cigarettes smoked: 49 [ Other cigarette details: Started at age 8] Second hand smoke exposure: Yes Smoking risk assessment/counseling performed?: No Alcohol intake: current Alcohol intake frequency: holidays/special occasions only Desire information about alcohol rehabilitation?: No Counseling given: No Desire information about substance/drug rehabilitation?: No Counseling given: No Adopted: No Caregiver/support person: No Lives independently: Yes Household members: family Housing: House Marital status: Number of children: 23 Number of grandchildren: 19 service: No Current occupational status: disabled Current gender identity: Male Vitals/I&O/Wt Last Vital Signs Temp 97.9 F 11/09/22 16:00 Pulse 101 H 11/09/22 16:00 Resp 16 11/09/22 16:00 BP 108/75 11/09/22 16:00 Pulse Ox 93 11/09/22 16:00 O2 Del Method Nasal Cannula 11/09/22 16:00 O2 Flow Rate 2 11/09/22 16:00 11/09/22 11/09/22 11/09/22 06:59 14:59 22:59 Intake Total 500 / 1010 Balance 500 / 1010 Weight last 48 hrs Weight 184 lb 9 oz Weight 180 lb 7 oz Weight 184 lb Physical Exam Narrative: General : Patient is well developed , no acute distress, oriented x3 Head : Normal cephalic, a-traumatic. Ears : Pinnae and external canal are normal. Hearing is normal. Eyes : PERRLA, Sclera and injection are normal. No conjunctival discharge. Nose : Mucous membranes are without erythema. Throat : buccal mucosa is normal, gums are without significant recession or hypertrophy. Lungs : Equal chest rise bilaterally, no use of accessory muscles, trachea is midline. Cor : Rate and rhythm are normal. Abdomen : Soft, ND, NT, no g/r, there is a reducible umbilical hernia Extremities : No edema, no cyanosis or clubbing, dorsalis pedis pulses are present bilaterally, non-tender to palpation of calves. Upper extremities are normal bilaterally. Back : non-tender to palpation, no CVA tenderness. Neuro : CN II - XII intact, Upper and lower extremities have equal and full strength Data 11/09/22 06:05 11/09/22 06:05 Micro: Microbiology 11/08/22 21:15 MRSA Culture - Final Nose A&P Assessment and plan (1) Primary adenocarcinoma of upper lobe of right lung: Plan Mediport placement The risks and benefits of the procedure, including but not limited to, bleeding, infection, infection requiring Mediport removal antibiotic therapy and repeat surgery, damage to surrounding structures, scar, numbness, pain, pneumothorax requiring thoracostomy tube, were explained to the patient. He/She is understanding of the risks and wishes to proceed. Coding Level of Care Code Acute Code for [facility] Fwd Diagnoses Primary adenocarcinoma of upper lobe of right lung C34.11
[2022-11-09] MEDS: lidocaine-epi 2% 20 mL INJ INJECTION (17:19)
[2022-11-09] MEDS: heparin, porcine 1,000 unit/mL INJ 10 mL 10000 UNIT INTRACATH (17:20)
--- NOTE | 2022-11-09 17:33 | PM.OP ---
Operative Report Date of procedure: November 09, 2022 Pre-op diagnosis: Lung cancer Post-op diagnosis: same Procedure done: Mediport placement Implants: PowerPort Specimens removed/disposition: None Surgeon: Dr. Omar Burrell, DO Anesthesia: MAC Estimated blood loss (mL): 5 Complications: None apparent Brief History: Is a very pleasant 57-year-old gentleman with lung cancer. Mediport placement was requested for chemotherapy access. The risk and benefits were explained and documented. Procedure: They put another order I will do right now things the patient was taken to the operating room and placed supine on the operating room table. All bony prominences were padded. She was given IV sedation and monitored throughout the case by the anesthesia personnel. SCDs were placed and turned on. The arms were tucked to the side. Patient received Ancef 2 g preoperatively IV. The bilateral chest wall was prepped and draped in usual sterile fashion using chlorhexidine base prep. Sterile drapes were applied. We did procedure pause prior to beginning. An 18 gauge needle was placed in the left subclavian vein. Dark, nonpulsatile blood was aspirated. A guidewire was placed through the needle centrally toward the atrial/vena caval junction. Fluoroscopy visualized good placement. The needle was removed and the guidewire was clipped to the drape with a hemostat. Further local anesthetic was infiltrated in the soft tissues of the left chest wall and a #15 blade was used to make a horizontal skin incision. A subcutaneous Mediport pocket was created using Bovie cautery, dissecting down through the skin and subcutaneous tissues. Meticulous hemostasis was achieved. The Mediport was sutured in position using 3-0 vicryl suture x2 stitches. A #15 blade was used to make a small skin allyssa around the guidewire insertion area. The Mediport tubing was tunneled through the subcutaneous tissues up to the needle insertion location. A dilator with a peel-away sheath was placed over the guidewire and placed centrally. After measuring the Mediport tubing was cut to length so that the tip would end at the atrial/vena caval junction. The inner cannula and the guidewire were removed, leaving the dilator sheath in place. The Mediport was flushed. The tip of the catheter was inserted through the peel-away sheath and the peel-away sheath removed in the standard fashion. The Mediport was accessed with a straight [place] needle and dark, nonpulsatile blood was aspirated and flushed using heparinized saline to hep-lock the Mediport. Final fluoroscopy visualization showed no kink in the catheter and the tip of the Mediport tubing near the atrial/vena caval junction. Both skin incisions were thoroughly irrigated and suctioned dry. Meticulous hemostasis noted. The dermis was approximated with 3-0 Vicryl in an interrupted fashion. Skin was closed with Dermabond. Patient was awakened from anesthesia and transferred via her cart to the recovery room in stable condition. All needle, sponge, and instrument counts were correct per the operating personnel x2 counts.
--- NOTE | 2022-11-09 17:35 | XRR_ITS ---
PROCEDURE INFORMATION: Exam: XR Chest Exam date and time: 11/09/2022 5:37 PM Age: 57 years old Clinical indication: Device placement; Other: Mediport; Prior surgery; Additional info: Postop mediport and anay drain, in pacu TECHNIQUE: Imaging protocol: Radiologic exam of the chest. Views: 1 view. COMPARISON: CR XR chest 1V portable [id number] 11/08/2022 4:26 PM FINDINGS: Tubes, catheters and devices: Left subclavian [id number] with tip over the mid SVC. Lungs: Consolidation of the right lung with possible aeration of the right apex. Stable interstitial opacities in the left lung. Pleural spaces: New medium size right pneumothorax with pleural separation of 2.9 cm. The right pleural effusion appears slightly smaller. Heart/Mediastinum: Unremarkable. No cardiomegaly. Bones/joints: Unremarkable. XR/XR chest 1V portable [id number] IMPRESSION: 1. New right pneumothorax with decreased pleural fluid. 2. Stable pulmonary edema versus pneumonia in the left lung.
[2022-11-09] MEDS: lidocaine 1% INJ 10 mL (per mL) INTRADERMA (18:15)
--- NOTE | 2022-11-09 18:25 | ANE.PACU2 ---
Inpatient post-anesthesia follow up: Airway intact: Yes Vital signs: Temperature 98.9 F Pulse Rate 100 Respiratory Rate 18 Blood Pressure 95/74 Pulse Oximetry 97 Oxygen Delivery Me thod Nasal Cannula Oxygen Flow Rate 2 Fraction of Inspir ed Oxygen Hydration adequate: Yes Nausea and vomiting: No Pain level: 2 Mental status: Baseline
--- NOTE | 2022-11-09 19:04 | P.OP_ITS ---
Operative Report Date of procedure: November 09, 2022 Pre-op diagnosis: Recurrent malignant right pleural effusion Post-op diagnosis: Same Procedure done: Enzo drain placement Brief History: Mr. Wes Edward with recently diagnosed metastatic lung cancer-comes to hospital with worsening shortness of breath due to recurrent malignant right pleural effusion, he was drained 2 times in last 1 month about 2 L sanguinous fluid 2 times and currently symptomatically short of breath due to pleural effusion. Patient was made to place a Pleurx drain. Patient was taken to the OR for placement of Port-A-Cath for his chemotherapy which was supposed to begin as outpatient. Once the Port-A-Cath was placed-I prepared to place did not drain well patient is still in OR. Procedure: Procedure: DATE OF PROCEDURE: 11/09/2022 PREOPERATIVE DIAGNOSIS: Recurrent right pleural effusion causing symptomatic dyspnea. POSTOPERATIVE DIAGNOSIS: Recurrent right pleural effusion causing symptomatic dyspnea. PROCEDURE PERFORMED/attempted: [id number]: Insertion of tunneled Pleurx catheter in the right pleural cavity SURGEON: Yariel Rocha MD [facility] ANESTHESIA: Managed by anesthesia team-patient was placed under MAC INDICATION FOR PROCEDURE: Recurrent right pleural effusion causing symptomatic dyspnea. In an effort to palliate respiratory symptoms, PleurX catheter placement was considered for home drainage. The patient and his family understood the risks and possible complications of the procedure and wished to proceed. DESCRIPTION OF PROCEDURE: The patient was brought to the operating room. He was placed supine on the operating table. He was connected to telemetry, oxygen, hemodynamic monitoring. After doing appropriate timeout, patient was placed in appropriate position. The right chest and upper abdomen were prepped and draped in the usual sterile fashion. 10 cc 1% local lidocaine is used for local anesthesia. A small counterincision was made in the right upper quadrant area. Through the anterior axillary line area, the pleural space was accessed by Seldinger technique using ultrasound guidance. The counterincision was made around the guidewire and then the indwelling PleurX catheter was tunneled from the right upper quadrant small incision to the one overlying the ribs. A sheath introducer was then passed over the wire and then the PleurX catheter was placed through the sheath introducer after removing the guidewire. There was some d ifficulty pushing the Pleurx catheter through the sheath introducer and only half of the tube went in with some of the holes still outside. I have pulled the tube out and wanted to reintroduce the finder needle but there was no significant fluid left on ultrasound examination. I have aborted the procedure. I placed 1 stitch over incision site as well as the counterincision site and closed the incision site with Xeroform gauze and closed. The patient tolerated the procedure well without any complications. The patient vitals remained stable. Sponge and needle count was correct at the end of the case. OPERATIVE FINDINGS: Unable to quantify but significant hemorrhagic leaked. There were overt no bleeding complications. Estimated blood loss: 5 to 10 cc Immediate complications: None Postprocedure chest x-ray showed decreased right pleural effusion with possible new right pneumothorax however given his underlying significant right lung cancer as evidenced on previous chest x-rays I suspect this is pneumothorax ex vacuo due to trapped lung. Follow-up chest x-rays showed air component reducing with fluid component increasing. Clinically patient remained stable with 2 L oxygen, denied any chest pain, was breathing comfortable and reported he is feeling good.
--- NOTE | 2022-11-09 20:09 | P.PN_ITS ---
Subjective Subjective: Today he is feeling slightly better. Not coughing up phlegm. Vitals/I&O/Wt Last Vital Signs Temp 97.4 F L 11/09/22 20:00 Pulse 102 H 11/09/22 20:00 Resp 18 11/09/22 20:00 BP 106/76 11/09/22 20:00 Pulse Ox 92 11/09/22 20:00 O2 Del Method Nasal Cannula 11/09/22 19:25 O2 Flow Rate 2 11/09/22 19:25 11/09/22 11/09/22 11/09/22 06:59 14:59 22:59 Intake Total 500 / 1010 100 / 100 Output Total 5 / 5 Balance 500 / 1010 95 / 95 Weight last 48 hrs Weight 83.716 kg Weight 81.845 kg Weight 83.461 kg Physical Exam Narrative: Accompanied by his and later daughter. Const: COMMON NORMALS: patient oriented x3 and alert GENERAL APPEARANCE: cooperative ORIENTATION/CONSCIOUSNESS: Yes awake HENMT: COMMON NORMALS: oropharynx normal Neck/C-Spine: COMMON NORMALS: no JVD Resp: COMMON NORMALS: normal respiratory effort and clear to auscultation bilaterally AUSCULTATION: clear to auscultation bilaterally and breath sounds absent on the right Cardio: COMMON NORMALS: no JVD, regular rhythm, S1 normal heart sound present, S2 normal heart sound present and No murmurs present (Cardio) RHYTHM: regular rhythm HEART SOUNDS: S1 normal heart sound present and S2 normal heart sound present GI: COMMON NORMALS: Normal to inspection, nondistended, normoactive bowel sounds present, Soft to palpation and non-tender PALPATION: Yes Soft to palpation Extremity: COMMON NORMALS: no joint enlargement and no pedal edema Neuro: COMMON NORMALS: patient oriented x3 and moves all extremities SENSORIUM/ORIENTATION: Yes alert Skin: COMMON NORMALS: no rashes or lesions noted GENERAL SKIN EXAM: no rashes or lesions noted Data 11/09/22 06:05 11/09/22 06:05 Micro: Microbiology 11/08/22 21:15 MRSA Culture - Final Nose A&P Assessment and plan (1) Pneumonia: Today he reports feeling slightly better. Has been less sputum. Pending placement of Pleurx catheter. Suspicion for possible pneumonia with dyspnea, cough productive of yellow/white sputum, sinus tachycardia, opacification of right hemithorax with underlying lung cancer. Possible postobstructive pneumonia. Increased interstitial opaci ties also noted in peripheral left lung, possibly pulm edema or atypical pneumonia. Discussed with him consideration of treatment options. Continue Levaquin which she received in ER. Broaden also with vancomycin for MRSA coverage. Collect sputum culture, MRSA PCR. Discussed with him difficulty of management in case postobstructive pneumonia. Consideration may need to be given to radiation therapy. Oxygen support. Normally on 2 L. At risk of potentially life-threatening respiratory failure with opacification of the right hemithorax. (2) Recurrent pleural effusion on right: Fluids catheter to be placed today. Discussed with pulmonology. No need for NPO. Discussed with oncology and with him as well in case lung does not reexpand consideration may be given to radiation therapy. He is initially reluctant but agreeable upon further discussion with oncology. Additional assessment tonight with CTA for possibility of PE. If PE start heparin drip, with plans for possible Pleurx catheter with pulmonology. Discussed and appreciate consultation. (3) Sinus tachycardia: Treatment of pneumonia as above. CT noted, no PE. Sinus tachycardia likely secondary to pneumonia, hypoxia, pleural effusion, lung cancer. (4) Primary adenocarcinoma of upper lobe of right lung: Discussed regarding Port-A-Cath placement discussion together with oncology on speaker phone. He initially requested for PICC line, however, later decided to proceed with Port-A-Cath, discussing with him risks of thrombosis, infection, duration the lines can stay in, also printed out given him some additional material to read over. Does have diabetes. (5) Smoking addiction: Discussed with him consideration of nicotine patch and lozenges while here for cravings, but he says those usually do not work for him. He understands that smoking you are on the premises of the hospital facility is evaluation of [place] law. He states that he smokes with his oxygen on, discussed with him to never smoke with oxygen due to risk of fire hazard and risk of severe airway joseph and/or life-threatening injuries. (6) Goals of care, counseling/discussion: He would not want CPR or intubation in case of cardiac or pulmonary arrest. In such case we would want to be kept comfortable and allowed to naturally. Plan SIRS: Suspected secondary to underlying pneumonia. Assess for possible PE. DM2: Accu-Cheks, sliding scale insulin, Lantus. CC diet. Declined insulin while NPO. GERD: HLD: Continue statin HTN monitor blood pressure, currently soft: Other medical problems. Servando with ER physician, ER documentation reviewed. Discussed with pulmonology. Oncology note reviewed. Attestations Medical Necessity Statement*: Continue admission for assessment management of pneumonia, recurrent pleural effusion right hemithorax, and presence of metastatic lung cancer in process of arrangements for start of chemotherapy, Port-A-Cath placement. Diagnoses Pneumonia J18.9 Recurrent pleural effusion on right J90 Sinus tachycardia R00.0 Primary adenocarcinoma of upper lobe of right lung C34.11 Smoking addiction F17.200 Goals of care, counseling/discussion Z71.89
[2022-11-09 20:44] LABS: Glucose Point of Care 203 mg/dL (70-110)
--- NOTE | 2022-11-09 21:12 | XRR_ITS ---
PROCEDURE INFORMATION: Exam: XR Chest Exam date and time: 11/09/2022 8:53 PM Age: 57 years old Clinical indication: Other: Post thoracynthesis; Prior surgery; Surgery type: Port; Additional info: Thoracynthesis, post TECHNIQUE: Imaging protocol: Radiologic exam of the chest. Views: 1 view. COMPARISON: CR (CHEST, ) 11/09/2022 5:37 PM FINDINGS: Tubes, catheters and devices: Stable left subclavian [id number]. Lungs: Stable coarse interstitial opacities in the left lung. Pleural spaces: Stable right hydropneumothorax with pleural separation of 2.9 cm. Heart/Mediastinum: Unremarkable. No cardiomegaly. Bones/joints: Unremarkable. XR/XR chest 1V portable [id number] IMPRESSION: 1. Stable right hydropneumothorax. 2. Stable pulmonary edema versus pneumonia in the left lung.
[2022-11-09] MEDS: insulin glargine 100 units/1 mL 25 UNIT SUBCUT (21:25)
[2022-11-09] MEDS: levofloxacin-dextrose 5 % 750 MG/150 ML PREMIX 100 MG IV (21:27)
[2022-11-09] MEDS: atorvastatin 40 mg Tablet 20 MG PO (21:28)
[2022-11-09 22:08] LABS: Vancomycin Trough 16.4 ug/mL (10-15)
--- NOTE | 2022-11-09 22:21 | USCV_ITS ---
Wes Edward Age: 57 Gender: M : 1965 Exam Date: 11/09/2022 05:40 Ordering Phys: Darnell Vidal MD Technologist: AMANDA [place] [facility] [place]ication: PERICARDIAL EFFUSION BP: 100 / 69 HR: 100 Rhythm: Sinus Technical Quality: Poor MEASUREMENTS (Male / Female) Normal Values 2D ECHO LVOT Diameter 2.0 cm LV Ejection Fraction MOD 2C 59.9 % LV Ejection Fraction 2C AL 58.6 % LA Diameter 2.9 cm LA Width 2.3 cm LA Height 4.0 cm RA Width 3.2 cm RA Height 3.6 cm Aorta at Sinotubular Diameter 2.0 cm IVC Diameter 1.5 cm M-MODE Aortic Annulus Diameter 2.7 cm LA Ao Ratio MM 1.0 MV E Point Septal Separation 0.2 cm DOPPLER Right Atrial Pressure 3.0 mmHg FINDINGS Left Ventricle This study is poor and limited to two-dimensional only. No M- mode or Doppler examinations were obtained. The ventricle appears normal in size. Wall motion disturbances cannot be determined. Ejection fraction cannot be determined. Diastology not available. Right Ventricle The right ventricle appears normal in size and function. Right Atrium The right atrium is normal in size. Left Atrium The left atrium is normal in size. Mitral Valve Structurally normal mitral valve. Aortic Valve Structurally normal trileaflet aortic valve. Tricuspid Valve Structurally normal tricuspid valve. Pulmonic Valve Pulmonic valve not well visualized. Pericardium There is a small to moderate-sized circumferential pericardial effusion. No obvious right atrial or right ventricular collapse is noted. Aorta Normal ascending aorta dimension. IVC The inferior vena cava does not collapse normally with respiration. CONCLUSIONS This study is poor and limited to two-dimensional only. No M- mode or Doppler examinations were obtained. The ventricle appears normal in size. Wall motion disturbances cannot be determined. Ejection fraction cannot be determined. Diastology not available. There is a small to moderate-sized circumferential pericardial effusion. No obvious right atrial or right ventricular collapse is noted. The inferior vena cava does not collapse normally with respiration. There are no prior echocardiogram studies to compare. Dr. Dar Grover MD (Electronically Signed) Final Date: 09 November 2022 08:26 S
--- NOTE | 2022-11-09 23:45 | PC.NURSE ---
pt verbalized becoming SOB when putting underwear on, recovered easily after sitting back down
[2022-11-10] VITALS (8 sets, daily range): BP systolic 94–102; BP diastolic 64–68; PULSE 92–104; RESP 16–20; TEMP 36.4–36.6; O2SAT 86–96
[2022-11-10] MEDS: vancomycin 1,000 MG in sodium chloride 0.9% 250 ML 250 MG IV (05:10)
[2022-11-10 05:28] LABS: Basophils % 0.1 %; Eosinophils % 0.1 %; Hematocrit 44.3 % (42.0-52.0); Hemoglobin 13.9 g/dL (11.7-16.6); Lymphocytes # 1.2 10^3/uL (0.8-4.8); Lymphocytes % 9.2 %; Mean Corpuscular HGB Conc 31.4 g/dL (30.0-36.0); Mean Corpuscular Hemoglobin 27.3 pg (28.0-34.0); Mean Platelet Volume 9.3 fL (7.4-10.4); Monocytes # 0.9 10^3/uL (0.2-0.9); Monocytes % 7.1 %; Neutrophils # 10.48 10^3/uL (1.8-7.7); Neutrophils % 83.1 %; Nucleated Red Blood Cells % 0 %; Platelet Count 338 10^3/cmm (130-400); Red Blood Count 5.09 10^6/uL (4.1-5.3); Red Cell Distribution Width 13.6 % (12.1-15.1); White Blood Count 12.6 10^3/uL (4.0-10.0)
[2022-11-10 05:45] LABS: Alanine Aminotransferase 9 U/L (0-41); Albumin Level 2.7 g/dL (3.5-5.2); Alkaline Phosphatase 75 U/L (40-130); Anion Gap 12.7 (5-19); Aspartate Amino Transferase 11 U/L (0-40); Blood Urea Nitrogen 14 mg/dL (6-20); Calcium 8.8 mg/dL (8.5-10.5); Carbon Dioxide 30 mmol/L (22-29); Chloride 101 mmol/L (98-107); Globulin 3.2 g/dL (1.3-4.6); Glomerular Filtration Rate 115.8 mL/min (90-130); Glucose 119 mg/dL (65-115); Osmolality Calculated 290 mOsm/kg (285-295); Potassium 4.7 mmol/L (3.5-5.1); Sodium 139 mmol/L (136-145); Total Bilirubin 0.3 mg/dL (0.15-1.2); Total Protein 5.9 g/dL (6.6-8.7)
--- NOTE | 2022-11-10 06:00 | XRR_ITS ---
PROCEDURE INFORMATION: Exam: XR Chest Exam date and time: 11/10/2022 5:33 AM Age: 57 years old Clinical indication: Shortness of breath; Prior surgery; Surgery type: Port; Patient HX: HX of lung cancer; Additional info: SOB TECHNIQUE: Imaging protocol: Radiologic exam of the chest. Views: 1 view. COMPARISON: CR (CHEST, ) 11/09/2022 8:53 PM FINDINGS: Tubes, catheters and devices: Left subclavian Port-A-Cath is seen without change. Lungs: Unchanged large right hydropneumothorax is seen with small air component. Unchanged mild left perihilar reticulonodular opacities. Pleural spaces: No left pleural effusion or pneumothorax. Heart/Mediastinum: The heart size is normal.There is a mildly tortuous thoracic aorta. The trachea is midline. Bones/joints: Unchanged medium-sized degenerative osteophytes and degenerative disc disease changes are seen in the mid to lower thoracic spine. Soft tissues: Multiple external leads are seen overlying the chest, limiting assessment. XR/XR chest 1V portable [id number] IMPRESSION: No significant change in correlation with the prior chest radiograph dated November 09, 2022.
[2022-11-10] MEDS: ipratropium-albuterol 3 mL Neb INHALATION (06:17)
[2022-11-10 06:32] LABS: Glucose Point of Care 102 mg/dL (70-110)
[2022-11-10] MEDS: enoxaparin 40 mg/0.4 mL Syringe SUBCUT (09:33)
[2022-11-10] MEDS: insulin glargine 100 units/1 mL 25 UNIT SUBCUT (09:34)
[2022-11-10 10:50] LABS: Glucose Point of Care 184 mg/dL (70-110)
[2022-11-10] MEDS: insulin lispro 100 unit/1 mL SUBCUT (12:51)
--- NOTE | 2022-11-10 21:38 | P.DS_ITS ---
Discharge Providers Date of Admission: 11/08/22 18:33 Date of Discharge: November 10, 2022 Attending Provider at Admission: Darnell Vidal Attending Provider at Discharge: Darnell Vidal Primary Care Provider: Kassy Ashley NP Diagnoses at Discharge Discharge Diagnosis (1) Pneumonia: Status: Acute (2) Recurrent pleural effusion on right: Status: Acute (3) Sinus tachycardia: Status: Acute (4) Primary adenocarcinoma of upper lobe of right lung: Status: Acute (5) Smoking addiction: Status: Acute (6) Goals of care, counseling/discussion: Status: Acute Reason for Visit Reason for Visit: SOB Brief History: 57-year-old gentleman normally on about 2 L of oxygen, with metastatic adenocarcinoma with pleural metastasis, liver lesions suspicious for metastatic disease, in process of arrangements of chemotherapy, with recurrent right-sided pleural effusion, status postthoracentesis x2 so far, most recently on .? Thoracentesis Preiser had allowed him about 2 weeks in between. Currently he comes into the hospital with dyspnea, cough productive of y ellow/white sputum.? Pleuritic chest pain.? Denies fever or chills.? Denies hemoptysis.? In ER sinus tachycardia 121, afebrile, blood pressure 115/81, WBC 10.3.? Chest x-ray with stable complete opacification of the right hemithorax.? Increased interstitial opacities of the peripheral left lung could represent pulmonary edema or atypical pneumonia. Hospital Course Hospital Course No PE found on CTA. Noted pleural effusions large right, small left, pericardial effusion, pulmonary edema and/or pneumonia in the left lung. On presentation he was started on Levaquin and vancomycin with suspicion of possible pneumonia, possible postobstructive etiology. Placement of Pleurx catheter was attempted on 11/09, but could not be achieved successfully and had to be aborted. He will be reassessed with pulmonology with regards to hydrothorax and minute pneumothorax. Consideration will be given to possibly replacement of Pleurx catheter. Findings discussed with him and his spouse. As he was feeling better, with improved breathing, clearance of phlegm production, he requested to return home, however, as per discussion due to mild to moderate pericardial effusion, although without signs of tamponade as per discussion with cardiology, follow-up echocardiogram is requested in 1 week and he is asked to follow-up with cardiology. He knows to avoid dehydration. He is warned to seek medical attention immediately in case of any concerning symptoms that may indicate progression of pericardial effusion, not limited to presyncopal symptoms, low blood pressure, chest pain, and/or knows to seek medical attention in case of worsening shortness of breath, fever, or other concerning symptoms. Inquiring about sexual activity, recommended caution, avoiding any whole-body vigorous activity that may lead to decrease in oxygen saturation/stress to myocardium. He is additionally referred for follow-up for assessment with radiation oncology to see if radiation may be helpful in reopening right lung together with effusion drainage. During hospitalization he also had Port-A-Cath placement and is asked to follow- up with surgery in 2 weeks. He will be following up with oncology on Monday morning. Physical Exam Narrative: Accompanied by his and later daughter. Const: COMMON NORMALS: patient oriented x3 and alert GENERAL APPEARANCE: cooperative ORIENTATION/CONSCIOUSNESS: Yes awake HENMT: COMMON NORMALS: oropharynx normal Neck/C-Spine: COMMON NORMALS: no JVD Resp: COMMON NORMALS: normal respiratory effort and clear to auscultation bilaterally AUSCULTATION: clear to auscultation bilaterally and breath sounds absent on the right Cardio: COMMON NORMALS: no JVD, regular rhythm, S1 normal heart sound present, S2 normal heart sound present and No murmurs present (Cardio) RHYTHM: regular rhythm HEART SOUNDS: S1 normal heart sound present and S2 normal heart sound present GI: COMMON NORMALS: Normal to inspection, nondistended, normoactive bowel sounds present, Soft to palpation and non-tender PALPATION: Yes Soft to palpation Extremity: COMMON NORMALS: no joint enlargement and no pedal edema Neuro: COMMON NORMALS: patient oriented x3 and moves all extremities SENSORIUM/ORIENTATION: Yes alert Skin: COMMON NORMALS: no rashes or lesions noted GENERAL SKIN EXAM: no rashes or lesions noted Discharge Data Studies Completed and Pending Completed Studies During Hospitalization Category Date Time Status CTA chest [CT angio chest PE protcl [id number]] Stat Cat Scan 11/08/22 19:07 Completed CXRP [XR chest 1V portable [id number]] Routine Exams 11/09/22 17:35 Completed XR chest 1V portable [id number] QAM Exams 11/10/22 06:00 Completed XR chest 1V portable [id number] Stat Exams 11/08/22 15:27 Completed XR chest 1V portable [id number] Stat Exams 11/09/22 21:12 Completed CV. echo limited [id number] Routine Ultrasound 11/09/22 22:21 Completed Pending at discharge Category Date Time Status Blood Cultures ([facility]) Routine Lab 11/08/22 17:45 Received Radiology Impressions Chest CTA 11/08/22 19:07 IMPRESSION: 1. No evidence for pulmonary embolus. 2. Inhomogenous consolidation of the entire right lung. This could represent diffuse malignant neoplastic involvement. 3. Large right and small left pleural effusions. 4. Prominent mediastinal and substernal lymph nodes, consistent with metastatic disease. 5. Pericardial effusion. 6. Pulmonary edema and/or pneumonia in the left lung. COMMENTS: Consistent with the [employer]'s Incidental Findings Committee white paper (J Am Jamil Radiol 2018): Any incidental renal lesion less than 1 cm or classified as too small to characterize, or any incidental cystic renal lesion characterized as simple-appearing, is likely benign. No follow-up imaging is recommended for these lesions per consensus recommendations based on imaging criteria. C-Arm Fluoroscopy 11/09/22 13:31 IMPRESSION: Intraoperative imaging during left-sided Mediport placement. Chest X-Ray 11/10/22 06:00 IMPRESSION: No significant change in correlation with the prior chest radiograph dated November 09, 2022. Laboratory Results WBC 12.6 10^3/uL (4.0-10.0) H 11/10/22 04:21 RBC 5.09 10^6/uL (4.1-5.3) 11/10/22 04:21 Hgb 13.9 g/dL (11.7-16.6) 11/10/22 04:21 Hct 44.3 % (42.0-52.0) 11/10/22 04:21 MCV 87.0 fl (80-94) 11/10/22 04:21 MCH 27.3 pg (28.0-34.0) L 11/10/22 04:21 MCHC 31.4 g/dL (30.0-36.0) D 11/10/22 04:21 RDW 13.6 % (12.1-15.1) 11/10/22 04:21 Plt Count 338 10^3/cmm (130-400) 11/10/22 04:21 MPV 9.3 fL (7.4-10.4) 11/10/22 04:21 Neut % (Auto) 83.1 % 11/10/22 04:21 Lymph % (Auto) 9.2 % 11/10/22 04:21 [place] % (Auto) 7.1 % 11/10/22 04:21 Eos % (Auto) 0.1 % 11/10/22 04:21 Baso % (Auto) 0.1 % 11/10/22 04:21 Neut # (Auto) 10.48 10^3/uL (1.8-7.7) H 11/10/22 04:21 Lymph # (Auto) 1.2 10^3/uL (0.8-4.8) 11/10/22 04:21 [place] # (Auto) 0.9 10^3/uL (0.2-0.9) 11/10/22 04:21 Eos # (Auto) 0.0 10^3/uL (0.0-0.8) 11/10/22 04:21 Baso # (Auto) 0.0 10^3/uL (0.0-0.1) 11/10/22 04:21 Nucleated RBC % (auto) 0 % 11/10/22 04:21 Nucleated RBCs # 0.0 /100WBC 11/10/22 04:21 PT 13.10 SECONDS (12.1-14.9) 11/08/22 16:21 INR 0.96 (0.8-1.2) 11/08/22 16:21 APTT 30.3 SECONDS (23.9-36.7) 11/08/22 16:21 Sodium 139 mmol/L (136-145) 11/10/22 04:21 Potassium 4.7 mmol/L (3.5-5.1) 11/10/22 04:21 Chloride 101 mmol/L (98-107) 11/10/22 04:21 Carbon Dioxide 30 mmol/L (22-29) H 11/10/22 04:21 Anion Gap 12.7 (5-19) 11/10/22 04:21 BUN 14 mg/dL (6-20) 11/10/22 04:21 Creatinine 0.7 mg/dL (0.7-1.2) 11/10/22 04:21 GFR Calculation 115.8 mL/min (90-130) 11/10/22 04:21 Glucose 119 mg/dL (65-115) H 11/10/22 04:21 POC Glucose 184 mg/dL (70-110) H 11/10/22 10:47 Calculated Osmolality 290 mOsm/kg (285-295) 11/10/22 04:21 Calcium 8.8 mg/dL (8.5-10.5) 11/10/22 04:21 Total Bilirubin 0.3 mg/dL (0.15-1.2) 11/10/22 04:21 AST 11 U/L (0-40) 11/10/22 04:21 ALT 9 U/L (0-41) 11/10/22 04:21 Alkaline Phosphatase 75 U/L (40-130) 11/10/22 04:21 NT-Pro-B Natriuret Pep 192 pg/mL (0-125) H 11/08/22 15:40 Total Protein 5.9 g/dL (6.6-8.7) L 11/10/22 04:21 Albumin 2.7 g/dL (3.5-5.2) L 11/10/22 04:21 Globulin 3.2 g/dL (1.3-4.6) 11/10/22 04:21 Vancomycin Trough 16.4 ug/mL (10-15) H 11/09/22 21:40 Vitals Last Vital Signs Temp 97.7 F 11/10/22 15:50 Pulse 104 H 11/10/22 15:50 Resp 17 11/10/22 15:50 BP 94/64 11/10/22 15:50 Pulse Ox 96 11/10/22 15:50 O2 Del Method Nasal Cannula 11/10/22 08:30 O2 Flow Rate 3 11/10/22 09:43 Discharge Plan Discharge Patient Disposition: Home Condition: Stable Prescriptions: New levofloxacin 750 mg tablet 750 mg PO DAILY 14 Days Qty: 14 0RF linezolid 600 mg tablet 600 mg PO BID 14 Days Qty: 28 0RF Continued lactulose 20 gram/30 mL solution 20 g PO BID PRN (Reason: constipation) 30 Days Qty: 1800 2RF atorvastatin 20 mg tablet 20 mg PO .QHS 30 Days Qty: 30 3RF metformin 500 mg tablet extended release 24 hr 1,000 mg PO DAILY Qty: 60 2RF (DME) OXYGEN AT 2 LITERS PER N/C CONTINUOUS See Rx Instructions .Route .MEDSUPPLY Qty: 1 0RF Rx Instructions: PLEASE PROVIDE PORTABLE CONSERVATIVE DEVICE, CONCENTRATOR, AND TUBING JEWELL PPLIES ipratropium-albuterol 0.5 mg-3 mg(2.5 mg base)/3 mL solution for nebulization 3 ml inhalation QID PRN (Reason: shortness of breath or wheezing) Qty: 180 2RF (DME) NEBULIZER MACHINE AND TUBING SUPPLIES See Rx Instructions .Route .MEDSUPPLY Qty: 1 0RF Rx Instructions: PROVIDE TUBING SUPPLIES (DME) OVERNIGHT AT HOME SLEEP STUDY See Rx Instructions .Route .MEDSUPPLY Qty: 1 0RF Rx Instructions: As directed Mucinex 1,200 mg tablet extended release 12hr 1,200 mg PO Q12H PRN (Reason: congestion) Trulicity 1.5 mg/0.5 mL pen injector 1.5 mg SUBCUT .weekly Qty: 2 6RF Rx Instructions: ON MONDAY sildenafil [Viagra] 100 mg tablet 100 mg PO DAILY PRN (Reason: sexual activity) Qty: 10 0RF Rx Instructions: 1/2 to 1 whole tab administer 30 minutes to 4 hours before activity Spiriva Respimat 2.5 mcg/actuation mist 2 puff inhalation DAILY 30 Days Qty: 4 6RF diclofenac sodium [Voltaren Arthritis Pain] 1 % gel 4 g topical QID Qty: 100 6RF mupirocin 2 % ointment 1 applic topical BID Qty: 15 1RF albuterol sulfate [Ventolin HFA] 90 mcg/actuation HFA aerosol inhaler 2 puff inhalation 6XD PRN (Reason: shortness of breath or wheezing) Qty: 8.5 0RF Trelegy Ellipta 200-62.5-25 mcg blister with device 1 inh inhalation Q24H Qty: 60 11RF Hold Instructions: Patient wants to try Spiriva (DME) Blood Glucose Test Strip See Rx Instructions .Route Qty: 50 5RF Rx Instructions: testing one to two times daily (DME) blood-glucose meter Misc See Rx Instructions .Route Qty: 1 0RF Rx Instructions: As directed (DME) lancets [Comfort Lancets] Misc See Rx Instructions .Route Qty: 100 1RF Rx Instructions: testing one to two times daily insulin glargine 100 unit/mL (3 mL) insulin pen 25 unit SUBCUT BID Qty: 15 0RF Rx Instructions: must fill at [facility] (DME) pen needle, diabetic [Comfort EZ Pen Streator] 33 gauge x 5/32 needle See Rx Instructions .Route Qty: 100 0RF Rx Instructions: As directed (DME) WHEELCHAIR WITH FOOT PEDALS See Rx Instructions .Route .MEDSUPPLY Qty: 1 0RF Rx Instructions: As directed oxycodone 5 mg tablet 5 mg PO Q6H PRN (Reason: pain) 5 Days Qty: 20 0RF ibuprofen 600 mg Tablet 600 mg PO Q6H PRN (Reason: Pain) acetaminophen [Tylenol] 325 mg Capsule 325 mg PO QID PRN (Reason: Pain) Farxiga 10 mg Tablet 10 mg PO DAILY polyethylene glycol 3350 [Miralax] 17 gram powder in packet 17 g PO DAILY PRN (Reason: laxative effect) Qty: 100 0RF Rx Instructions: 1 to 3 times per day as needed for applesauce consistency bowel movements Discharge Orders: Discharge Order (Routine); Ordered 11/10/22 Ordered By: Darnell Vidal Other Ambulatory Orders: Complete Blood Count w/Auto (Routine) Timeframe: 20221114 Location: Determined by Patient Ordered By: Herber Fisher Comprehensive Metabolic Panel (Routine) Timeframe: 20221114 Location: Determined by Patient Ordered By: Herber Fisher Cortisol Random (Routine) Timeframe: 20221114 Location: Determined by Patient Ordered By: Herber Fisher CV. echo limited [id number] (Routine) Timeframe: 1 Week Location: [facility] Ordered By: Darnell Vidal Hepatitis Panel Comprehensive (Routine) Timeframe: 20221114 Location: Determined by Patient Ordered By: Herber Fisher Immunoglobulin IGG (Routine) Timeframe: 20221114 Location: Determined by Patient Ordered By: Herber Fisher Thyroid Stimulating Hormone (Routine) Timeframe: 20221114 Location: Determined by Patient Ordered By: Herber Fisher DME: Oxygen (Order) Location: None Selected Ordered By: Darnell Vidal DME: Wheelchair (Order) Location: None Selected Ordered By: Darnell Vidal Referrals: Burrell,Omar, DO [Physician] - 2 weeks Kassy Ashley NP [Primary Care Provider] - 11/15/22 10:00 am Datar,Yariel Canchola MD [Physician] - 1 week Dakota Poole MD [Physician] - 2 weeks Jairo Carreno MD [Hospitalist] - 1 week Herber Fisher MD [Hospitalist] - 11/14/22 8:00 am (Covering for Dr. Ruiz) Discharge Activity: Increase activity as tolerated, Limit activity as instructed and Oxygen as instructed Patient Instructions: Levofloxacin (By mouth), Linezolid (By mouth), Implanted Venous Access Port (GEN), Pleural Effusion (GEN), Pericardial Effusion (GEN), Thoracentesis (GEN), Opioid Safety Activity Restrictions/Additional Instructions: Please follow-up with lung specialist in 1 week for reassessment of fluid and small amount of air air around your lung and the chest cavity and consideration of Pleurx catheter. Please follow-up with oncology on Monday morning. Please follow-up with your primary doctor and processing tech with regards to fluid around your heart (small to moderate pericardial effusion). Avoid dehydration. Follow-up with repeat heart ultrasound in 1 week. Follow-up with cardiology in 2 weeks. If you experience any chest pain or pressure, low blood pressure, less than 90/50, feeling lightheaded, fainting, high fever, worsening shortness of breath, or any other concerning symptoms, seek medical attention immediately. Please follow-up with Dr. Carreno, radiation oncology next week. Please follow-up with oncology clinic on Monday (Dr. Fisher covering for Dr. Ruiz who is out of town). Follow-up with surgeon for reassessment of port in 2 weeks. Discharge Attestations Time Spent in Discharge Care*: greater than 30 min Quality Metrics Clinical Quality Measures [ No reported AMI, CVA or VTE this stay] Coding Level of Care Code Acute Code for Chg Fwd Diagnoses Pneumonia J18.9 Recurrent pleural effusion on right J90 Sinus tachycardia R00.0 Primary adenocarcinoma of upper lobe of right lung C34.11 Smoking addiction F17.200 Goals of care, counseling/discussion Z71.89
[2022-11-14 05:16] LABS: Glucose Point of Care 158 mg/dL (70-110)
== END 2022-11-10 15:06 | disposition home or self-care (01) | DRG 166 ==
LOC: ER 17:51 → MEDSURG 18:34
PROVIDERS: Internal Medicine Pulmonary Disease; Surgery; Admitting Provider Internal Medicine; Emergency Provider Family Medicine; PCP Nurse Practitioner Family; Visit Provider Internal Medicine
PROC: 0JH60WZ Insertion of Totally Implantable Vascular Access Device into Chest Subcutaneous Tissue and Fascia, Open Approach (ICD-10-PCS; principal; 2022-11-09 16:30)
PROC: 0WJG3ZZ Inspection of Peritoneal Cavity, Percutaneous Approach (ICD-10-PCS; CPT 32550; 2022-11-09 16:30)
DX: C34.11 Malignant neoplasm of upper lobe, right bronchus or lung (principal); J18.9 Pneumonia, unspecified organism; J91.0 Malignant pleural effusion; C77.2 Secondary and unspecified malignant neoplasm of intra-abdominal lymph nodes; J44.9 Chronic obstructive pulmonary disease, unspecified; Z99.81 Dependence on supplemental oxygen; Z79.84 Long term (current) use of oral hypoglycemic drugs; Z79.85 Long-term (current) use of injectable non-insulin antidiabetic drugs; Z79.51 Long term (current) use of inhaled steroids; Z79.4 Long term (current) use of insulin; Z79.891 Long term (current) use of opiate analgesic; F41.9 Anxiety disorder, unspecified; E11.9 Type 2 diabetes mellitus without complications; K21.9 Gastro-esophageal reflux disease without esophagitis; I25.2 Old myocardial infarction; E78.5 Hyperlipidemia, unspecified; I10 Essential (primary) hypertension; Z96.611 Presence of right artificial shoulder joint; F17.210 Nicotine dependence, cigarettes, uncomplicated
CPT/HCPCS: 36415; 36416; 71045; 71275; 76000; 80053; 80202; 82962; 83880; 85025; 85610; 85730; 87040; 87641; 93308; 94640; 94664; 94760; 96372; 96374; 96375; 99285; C1788; J1200; J1644; J1650; J1815; J1956; J2250; J2270; J2370; J2405; J2704; J2930; J3370; J7030; J7050; Q9967

== ENCOUNTER 2022-11-13 04:36 | Emergency (ER) | payer MEDICARE, MEDICAID, SELFPAY ==
[2022-11-13] VITALS (8 sets, daily range): BP systolic 96–115; BP diastolic 47–71; PULSE 119–127; RESP 18; TEMP 36.4; O2SAT 94–97; BMI 25.1
--- NOTE | 2022-11-13 04:43 | XRR_ITS ---
PROCEDURE INFORMATION: Exam: XR Chest Exam date and time: 11/13/2022 4:24 AM Age: 57 years old Clinical indication: Shortness of breath; Prior surgery; Surgery date: 6+ months; Surgery type: Port; Patient HX: Lung CA; Additional info: SOB TECHNIQUE: Imaging protocol: Radiologic exam of the chest. Views: 1 view. COMPARISON: CR XR chest 1V portable [id number] 11/10/2022 5:33 AM FINDINGS: Tubes, catheters and devices: Left-sided Port-A-Cath terminates in the region of the superior cavoatrial junction. Lungs: Atelectasis in the right lung. Similar reticular opacities in the left lung. Pleural spaces: Similar large right hydropneumothorax with small gaseous component. Heart/Mediastinum: Unremarkable. No cardiomegaly. Bones/joints: Unremarkable. XR/XR chest 1V portable [id number] IMPRESSION: 1. No substantial interval change. Similar large right hydropneumothorax with small gaseous component. 2. Similar reticular opacities in the left lung.
--- NOTE | 2022-11-13 04:52 | ECG_ITS ---
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 Measurements Intervals [place] Rate: 125 P: 42 UT: 161 QRS: 129 QRSD: 97 T: 10 QT: 396 QTc: 573 Interpretive Statements SINUS TACHYCARDIA POSSIBLE RIGHT VENTRICULAR HYPERTROPHY [SOME/ALL OF: PROMINENT R IN V1, LATE TRANSITION, RAD, NEGRITA, SSS] POSSIBLE ANTERIOR MYOCARDIAL INFARCTION , OF INDETERMINATE AGE [30 ms Q WAVE IN V3/V4, OR R < 0.2 mV IN V4] Compared to ECG 08/16/2022 06:44:53 Myocardial infarct finding now present Electronically Signed On 11-13-2022 9:45:18 CDT by Dar Grover M.D. [email or web address]
[2022-11-13 05:15] LABS: Basophils % 0.2 %; Eosinophils # 0.1 10^3/uL (0.0-0.8); Eosinophils % 0.4 %; Hematocrit 43.8 % (42.0-52.0); Hemoglobin 14.3 g/dL (11.7-16.6); Lymphocytes # 1.4 10^3/uL (0.8-4.8); Lymphocytes % 8.8 %; Mean Corpuscular HGB Conc 32.6 g/dL (30.0-36.0); Mean Corpuscular Hemoglobin 27.7 pg (28.0-34.0); Mean Corpuscular Volume 84.7 fl (80-94); Mean Platelet Volume 8.9 fL (7.4-10.4); Monocytes # 0.5 10^3/uL (0.2-0.9); Monocytes % 3.2 %; Neutrophils # 13.45 10^3/uL (1.8-7.7); Neutrophils % 86.9 %; Nucleated Red Blood Cells % 0 %; Platelet Count 351 10^3/cmm (130-400); Red Blood Count 5.17 10^6/uL (4.1-5.3); Red Cell Distribution Width 13.7 % (12.1-15.1); White Blood Count 15.5 10^3/uL (4.0-10.0)
[2022-11-13] MEDS: ipratropium-albuterol 3 mL Neb INHALATION (05:17)
[2022-11-13] MEDS: piperacillin-tazobactam 4.5 GM in sodium chloride 0.9% (plus) 50 ML IV (05:58)
[2022-11-13 06:01] LABS: Lactic Sepsis W/Reflex 2.3 mmol/L (0.5-2.2)
[2022-11-13 06:12] LABS: Alanine Aminotransferase 7 U/L (0-41); Albumin Level 2.4 g/dL (3.5-5.2); Alkaline Phosphatase 56 U/L (40-130); Anion Gap 17.2 (5-19); Aspartate Amino Transferase 11 U/L (0-40); Blood Urea Nitrogen 9 mg/dL (6-20); Calcium 7.6 mg/dL (8.5-10.5); Carbon Dioxide 22 mmol/L (22-29); Chloride 102 mmol/L (98-107); Globulin 2.7 g/dL (1.3-4.6); Glomerular Filtration Rate 170.8 mL/min (90-130); Glucose 126 mg/dL (65-115); Magnesium 1.6 mg/dL (1.7-2.3); NT Pro B Type Natriuretic Pept 202 pg/mL (0-125); Osmolality Calculated 286 mOsm/kg (285-295); Potassium 3.2 mmol/L (3.5-5.1); Sodium 138 mmol/L (136-145); Total Bilirubin 0.4 mg/dL (0.15-1.2); Total Protein 5.1 g/dL (6.6-8.7)
[2022-11-13] MEDS: vancomycin 1,000 MG in sodium chloride 0.9% 250 ML 250 MG IV (06:18)
--- NOTE | 2022-11-13 06:23 | W.ED.SOB ---
Documented by User: Sergei Stringer Aftab, DO 11/13/22 17:45 HPI - SOB/Dyspnea General: Chief Complaint: Shortness of Breath/Dyspnea Stated Complaint: SOB Time Seen by Provider: 11/13/22 04:40 History of Present Illness: HPI Narrative: 57-year-old male with a history of metastatic adenocarcinoma of the lung. He also has COPD. He had a recent admission, and was sent home on 11/10 from this hospital. Attempt to place a port to drain chronic right-sided effusion was made at that point. I believe it was unsuccessful. He presents this morning with increasing shortness of breath and lethargy at home. He was found to have oxygen saturations in the low 80s at home despite his home O2. He was given albuterol and increased oxygen supplementation on the way here, and is currently feeling improved. He has been taking his antibiotics he says. [facility] ED PFSH: Medical History Abdominal pain Anxiety Caries COPD (chronic obstructive pulmonary disease) Diabetes mellitus with hyperglycemia, without long-term current use of insulin Erectile dysfunction GERD (gastroesophageal reflux disease) History of ME (myocardial infarction) Hyperlipidemia Hypertension Hypogonadism Mass of upper lobe of right lung Primary adenocarcinoma of upper lobe of right lung Smoking addiction Uncontrolled diabetes mellitus Surgical History History of appendectomy History of colonoscopy (~12/2019) History of total shoulder replacement Right Family History Other Cancer Diabetes Heart disease Hypertension Social History Smoking and tobacco status: current every day smoker cigarettes Packs smoked per day: 1 Years cigarettes smoked: 49 [ Other cigarette details: Started at age 8] Second hand smoke exposure: Yes Smoking risk assessment/counseling performed?: No Alcohol intake: current Alcohol intake frequency: holidays/special occasions only Desire information about alcohol rehabilitation?: No Counseling given: No Substance/Drug Use: unknown Desire information about substance/drug rehabilitation?: No Counseling given: No Adopted: No Caregiver/support person: No Lives independently: Yes Household members: family Housing: House Marital status: Number of children: 23 Number of grandchildren: 19 service: No Current occupational status: disabled Do you think of yourself as: Straight/Heterosexual Current gender identity: Male Course Vital Signs: Vital signs: Vital Signs Temperature 97.6 F 11/13/22 04:40 Pulse Rate 119 H 11/13/22 14:01 Respiratory Rate 18 11/13/22 07:18 Blood Pressure 100/67 11/13/22 09:08 Pulse Oximetry 96 11/13/22 14:01 Oxygen Delivery Me thod Nasal Cannula 11/13/22 12:28 Oxygen Flow Rate 3 11/13/22 12:28 MDM - SOB/Dyspnea Medical Decision Making 57-year-old gentleman with hypoxic respiratory failure. His white blood cell count is 15.5 which is increased from prior. His potassium is 3.2 which will be repleted. Lactic acid is 2.3. BNP is only 200. He does have a history of a pericardial effusion as well. Given his hypoxia, leukocytosis, increased pulse rate in the 120s, and the size of his pleural effusion, he will require readmission. He will also likely require an echocardiogram to recheck pericardial fluid levels as well. Currently he is normotensive. Lab Data 11/13/22 05:00 11/13/22 05:00 Labs/Radiology: Radiology Impressions Chest X-Ray 11/13/22 04:43 IMPRESSION: 1. No substantial interval change. Similar large right hydropneumothorax with small gaseous component. 2. Similar reticular opacities in the left lung. Laboratory Results WBC 15.5 10^3/uL (4.0-10.0) H 11/13/22 05:00 RBC 5.17 10^6/uL (4.1-5.3) 11/13/22 05:00 Hgb 14.3 g/dL (11.7-16.6) 11/13/22 05:00 Hct 43.8 % (42.0-52.0) 11/13/22 05:00 MCV 84.7 fl (80-94) 11/13/22 05:00 MCH 27.7 pg (28.0-34.0) L 11/13/22 05:00 MCHC 32.6 g/dL (30.0-36.0) 11/13/22 05:00 RDW 13.7 % (12.1-15.1) 11/13/22 05:00 Plt Count 351 10^3/cmm (130-400) 11/13/22 05:00 MPV 8.9 fL (7.4-10.4) 11/13/22 05:00 Neut % (Auto) 86.9 % 11/13/22 05:00 Lymph % (Auto) 8.8 % 11/13/22 05:00 [place] % (Auto) 3.2 % 11/13/22 05:00 Eos % (Auto) 0.4 % 11/13/22 05:00 Baso % (Auto) 0.2 % 11/13/22 05:00 Neut # (Auto) 13.45 10^3/uL (1.8-7.7) H 11/13/22 05:00 Lymph # (Auto) 1.4 10^3/uL (0.8-4.8) 11/13/22 05:00 [place] # (Auto) 0.5 10^3/uL (0.2-0.9) 11/13/22 05:00 Eos # (Auto) 0.1 10^3/uL (0.0-0.8) 11/13/22 05:00 Baso # (Auto) 0.0 10^3/uL (0.0-0.1) 11/13/22 05:00 Nucleated RBC % (auto) 0 % 11/13/22 05:00 Nucleated RBCs # 0.0 /100WBC 11/13/22 05:00 Sodium 138 mmol/L (136-145) 11/13/22 05:00 Potassium 3.2 mmol/L (3.5-5.1) L 11/13/22 05:00 Chloride 102 mmol/L (98-107) 11/13/22 05:00 Carbon Dioxide 22 mmol/L (22-29) 11/13/22 05:00 Anion Gap 17.2 (5-19) 11/13/22 05:00 BUN 9 mg/dL (6-20) 11/13/22 05:00 Creatinine 0.5 mg/dL (0.7-1.2) L 11/13/22 05:00 GFR Calculation 170.8 mL/min (90-130) H 11/13/22 05:00 Glucose 126 mg/dL (65-115) H 11/13/22 05:00 Calculated Osmolality 286 mOsm/kg (285-295) 11/13/22 05:00 Lactic Acid 2.3 mmol/L (0.5-2.2) H 11/13/22 05:00 Lactic Acid (Sepsis) 2.4 mmol/L (0.5-2.2) H 11/13/22 08:27 Calcium 7.6 mg/dL (8.5-10.5) L 11/13/22 05:00 Magnesium 1.6 mg/dL (1.7-2.3) L 11/13/22 05:00 Total Bilirubin 0.4 mg/dL (0.15-1.2) 11/13/22 05:00 AST 11 U/L (0-40) 11/13/22 05:00 ALT 7 U/L (0-41) 11/13/22 05:00 Alkaline Phosphatase 56 U/L (40-130) 11/13/22 05:00 NT-Pro-B Natriuret Pep 202 pg/mL (0-125) H 11/13/22 05:00 Total Protein 5.1 g/dL (6.6-8.7) L 11/13/22 05:00 Albumin 2.4 g/dL (3.5-5.2) L 11/13/22 05:00 Globulin 2.7 g/dL (1.3-4.6) 11/13/22 05:00 Discharge Plan Discharge Patient Disposition: Xfer Short-Term Hosp Clinical Impression: Mass of upper lobe of right lung, Recurrent pleural effusion on right COPD (chronic obstructive pulmonary disease) Qualifiers: COPD type: unspecified COPD Qualified Code(s): J44.9 - Chronic obstructive pulmonary disease, unspecified Condition: Stable Discharge Orders: Transfer Out of Facility (Order); Ordered 11/13/22 Ordered By: Tim Richardson Referrals: Kassy Ashley NP [Primary Care Provider] - Coding Level of Care Code ED [employer] for Chg Fwd Documented by User: Timrichelle RichardsonDO 11/13/22 10:42 HPI - SOB/Dyspnea General: Chief Complaint: Shortness of Breath/Dyspnea Stated Complaint: SOB Time Seen by Provider: 11/13/22 04:40 History of Present Illness: Associated symptoms: Reports nausea and vomiting; Deny abdominal pain, chest pain, fever(s) or palpitations Review of Systems General: Reports: 10 or more systems reviewed and unremarkable except in HPI and below Const: Denies: fever(s) or chills Eyes: Denies: change in vision ENMT: Denies: throat pain or odynophagia Card: Denies: chest pain or palpitations Resp: Reports: dyspnea GI: Reports: nausea and vomiting; Denies: abdominal pain : Denies: flank pain Musc: Denies: neck pain Skin/Breast: Denies: rash or pruritus PFSH ED PFSH: Medical History Abdominal pain Anxiety Caries COPD (chronic obstructive pulmonary disease) Diabetes mellitus with hyperglycemia, without long-term current use of insulin Erectile dysfunction GERD (gastroesophageal reflux disease) History of ME (myocardial infarction) Hyperlipidemia Hypertension Hypogonadism Mass of upper lobe of right lung Primary adenocarcinoma of upper lobe of right lung Smoking addiction Uncontrolled diabetes mellitus Surgical History History of appendectomy History of colonoscopy (~12/2019) History of total shoulder replacement Right Family History Other Cancer Diabetes Heart disease Hypertension Social History Smoking and tobacco status: current every day smoker cigarettes Packs smoked per day: 1 Years cigarettes smoked: 49 [ Other cigarette details: Started at age 8] Second hand smoke exposure: Yes Smoking risk assessment/counseling performed?: No Alcohol intake: current Alcohol intake frequency: holidays/special occasions only Desire information about alcohol rehabilitation?: No Counseling given: No Substance/Drug Use: unknown Desire information about substance/drug rehabilitation?: No Counseling given: No Adopted: No Caregiver/support person: No Lives independently: Yes Household members: family Housing: House Marital status: Number of children: 23 Number of grandchildren: 19 service: No Current occupational status: disabled Do you think of yourself as: Straight/Heterosexual Current gender identity: Male Physical Exam Const: COMMON NORMALS: patient oriented x3, no limitations, alert and well nourished HENMT: COMMON NORMALS: normocephalic, atraumatic, hearing grossly normal bilaterally, external ears normal, Normal external nose present and moist oral mucous membranes HEAD & SCALP: normocephalic and atraumatic NOSE: Normal external nose present EXTERNAL EAR: Yes external ears normal Eye: COMMON NORMALS: Equal, round and reactive pupils present, EOMs intact bilaterally, conjunctivae normal and no scleral icterus CONJUNCTIVA: Yes conjunctivae normal PUPIL: Yes Equal, round and reactive pupils present Neck/C-Spine: COMMON NORMALS: full ROM, no lymphadenopathy, supple, no meningeal signs and no JVD Chest: COMMONS NORMALS: normal inspection of the chest and normal palpation of entire chest wall OTHER: Dressing on right lateral chest clean dry and intact Resp: OTHER: Left lung clear to auscultation bilaterally with no rales rhonchi or wheezes right lung drastically decreased breath sounds throughout. Cardio: COMMON NORMALS: no JVD, regular rate, regular rhythm, S1 normal heart sound present and S2 normal heart sound present RATE: regular rate RHYTHM: regular rhythm HEART SOUNDS: S1 normal heart sound present and S2 normal heart sound present GI: COMMON NORMALS: Normal to inspection, nondistended, normoactive bowel sounds present, Soft to palpation, non-tender, No hepatosplenomegaly present and no masses PALPATION: Yes Soft to palpation and Yes No hepatosplenomegaly present : COMMON NORMALS: Yes no CVA tenderness BLADDER/KIDNEY EXAM: Yes no CVA tenderness Back/Pelvis: COMMON NORMALS: no CVA tenderness Extremity: COMMON NORMALS: normal to inspection Neuro: COMMON NORMALS: patient oriented x3, CN's II-XII intact bilaterally, moves all extremities and no focal motor deficits SENSORIUM/ORIENTATION: Yes alert MENINGEAL SIGNS: Yes no meningeal signs Course Vital Signs: Vital signs: Vital Signs Temperature 97.6 F 11/13/22 04:40 Pulse Rate 119 H 11/13/22 14:01 Respiratory Rate 18 11/13/22 07:18 Blood Pressure 100/67 11/13/22 09:08 Pulse Oximetry 96 11/13/22 14:01 Oxygen Delivery Me thod Nasal Cannula 11/13/22 12:28 Oxygen Flow Rate 3 11/13/22 12:28 MDM - SOB/Dyspnea Medical Decision Making 57-year-old gentleman with hypoxic respiratory failure. His white blood cell count is 15.5 which is increased from prior. His potassium is 3.2 which will be repleted. Lactic acid is 2.3. BNP is only 200. He does have a history of a pericardial effusion as well. Given his hypoxia, leukocytosis, increased pulse rate in the 120s, and the size of his pleural effusion, he will require readmission. He will also likely require an echocardiogram to recheck pericardial fluid levels as well. Currently he is normotensive. Dr. Vidal was consulted who recommended talking to Dr. Patel first to see if he still an appropriate candidate for this facility. Dr. Patel says he is. He will be admitted for Dr. Vidal and with Dr. Patel consulted. Dr. Reyes come down and saw the patient and reviewed his CT and we ultrasounded this pleural effusion. Dr. Patel suggested that we transfer him to [facility] to the CT surgeon and stem dryer maintainer there for intervention. He consulted them and they reviewed the imaging and they agreed. I talked to the hospitalist Dr. Tse and presented the patient to her. She accepted to [facility] telemetry. Patient be transferred to [facility] in [place]. Medical Records I reviewed the patient's medical records. Lab Data I reviewed the patient's lab results. 11/13/22 05:00 11/13/22 05:00 Labs/Radiology: Radiology Impressions Chest X-Ray 11/13/22 04:43
[2022-11-13 06:55] LABS: Reflex Lactate Order REFLEX LACTIC ORDERD
[2022-11-13] MEDS: potassium chloride oral liq 20 mEq/15 mL UDC 40 MEQ PO (07:04)
[2022-11-13] MEDS: morphine 4 mg/mL SDV 1 mL IVP (07:18)
[2022-11-13 08:56] LABS: Lactic Acid level (Lactate) 2.4 mmol/L (0.5-2.2)
--- NOTE | 2022-11-13 12:30 | P.CONIM_ITS ---
Providers/Reason For Consult Consulting Physician/Specialty*: Yariel Rocha MD, FCCP/pulmonary critical care Reason for Consult*: Symptomatic dyspnea with recurrent right pleural effusion and trapped lung in patient with underlying malignancy Requesting Physician: Dr. Tim Richardson Primary Care Provider: Kassy Ashley NP History of Present Illness History of Present Illness Wes Edward is a 57 year old male presented to emergency room for hypoxic respiratory failure I have known Mr. Wagner Harvey as an outpatient He is a chronic smoker, recently diagnosed with metastatic moderately differentiated lung adenocarcinoma with PET active metastatic retroperitoneal lymphadenopathy-has evidence of recurrent right pleural effusion and pericardial effusion. Patient is a current smoker, 1 ppd X 49 years. Started at age 8.? Continues to smoke half pack per day. He has a right upper lung nodule initially seen in January 2019, at that time was 2 cm in size and follow-up CT scan of chest done on February 05, 2020 showed mass progressed to 2.46 cm compared to 2 cm previously. He refused any intervention at that point of time. He had follow-up abdominal pain, nausea and constipation-CT abdomen pelvis 07/21/2022 which showed nodular interstitial thickening at lung base suspicious for lymphangitic spread of tumor versus pneumonia with small effusion.? There is also right upper lobe mass suspicious for neoplasm which was described on previous CT 02/04/2021.? Indeterminate 9 mm low-attenuation nodule in the liver suspicious for metastasis.. He had a CT chest on August 04, 2022 which showed larger 3 cm spiculated nodule in the right upper lobe.? Scattered centrilobular opacities throughout the right lung and posterior right lower lobe.? New 3 mm and 2 mm left upper lobe nodules.? New 3 mm and 4 mm left lower lobe nodules.? Small posterior right pleural effusion with no visible pleural thickening or nodularity.? Increased mediastinal and hilar lymph nodes, some of which shows calcification at the largest lymph node measuring up to 1.3 cm.? Liver shows diffuse fatty infiltration of the liver. On August 16, 2022 he underwent bronchoscopic inspection showed edematous the right middle lobe and lower lobe mucosa with few very small nodular lesions on proximal bronchus intermedius mucosa. Ion robotic navigational guided bronchoscopy biopsies of right upper lobe, needle aspiration biopsy which confirmed moderately differentiated adenocarcinoma.? Station 11 R, EBUS-guided biopsy confirmed moderately differentiated adenocarcinoma Station 4R, was negative for malignancy, immunohistochemistry was positive for TTF-1 plus CK5, p63 plus trim 29, focally positive and positive for desmin plus Napsin A, consistent with moderately differentiated adenocarcinoma. As per patient he was scheduled for CT PET scan on August 27, 2022 but because of blood sugar more than 250 it was canceled and later on, was done on September 24, 2022 showed dense consolidation in the right middle and right lower lobe is markedly FDG avid, size about 12 x 15 x 7 cm SUV 11.6 which is consistent with a mixture of malignant tumor and postobstructive pneumonia.? Irregular soft tissue masses in the anterior and posterior segments of right upper lobe are consistent with malignancy.? They have SUV of 7.8 and 6.2.? A moderate right pleural effusion is 4 cm in the depth.? The pleural metastasis at the posterior inferior right hemithorax has an SUV of 7.2.? Size 5.3 x 1.7 x 2.6 cm.? A small left pleural effusion is 1 cm in depth.? And malignant left hilar mass/lymphadenopathy 3.2 x 5.6 x 5 cm has SUV of 8.7.? And FDG avid right internal mammary lymph node is 1.3 x 1 x 1 cm with SUV of 9.0.? Malignant retroperitoneal lymphadenopathy down to the L4 level has SUV of 8.7.? Para-aortic mediastinal lymphadenopathy has SUV of 5.3.? No bone mets or soft tissue involvement.? MRI brain done on September 05, 2022 showed no evidence of brain mets.Meanwhile tissue molecular testing done to identify targetable mutation, reported on October 24, 2022 was negative for any targetable mutation but PDL 1 was positive, TPS 1%. Once all the work-up was done oncology evaluated patient on 11/01/2022 and is considering to start pembrolizumab/carboplatin/Alimta pending Port-A-Cath placement. While waiting for all these testing, patient cancer appeared to be more advanced and complicated with possible bronchial obstruction and recurrent right pleural effusion. I drained about 2.3 L sanguinous pleural fluid on 10/18/2022 as outpatient. Postprocedure chest x-ray showed total white out of right pleural cavity which might indicate large volume pleural effusion or obstruction of mainstem bronchus .? He came back to emergency room on 10/29/2022 and pulmonary was not on-call and so scheduled as outpatient for thoracentesis on 11/03/2022 and I removed 206 0 cc sanguinous pleural fluid.? Cytology consistent with metastatic adenocarcinoma. Postprocedure chest x-ray redemonstrated whiteout of right hemithorax as previous despite draining over 2 L fluid. He return to ER on 11/08/2022 complaining of worsening shortness of breath.? He was using 2 L home oxygen currently requiring 3 to 4 L by nasal cannula.? He is awaiting Port-A-Cath placement to start his chemotherapy.? CTA ruled out pulmonary embolus.? There was inhomogeneous consolidation of entire right lung.? There were large right and small left pleural effusions. He was admitted and a Port-A-Cath was placed on 11/09/2022 by general surgery in the OR under MAC following which I attempted to place a Pleurx catheter in the OR. However I could not advance the Pleurx catheter and most of the fluid was drained out while doing the procedure. I aborted the procedure. Post procedure chest x-ray showed right hydropneumothorax-which I suspect is secondary to trapped lung physiology. Patient was in no distress and he is down to baseline 2 L supplemental oxygen. He was discharged home with plans to start chemotherapy 11/14/2022 and Pleurx catheter placement if the fluid recurs again. Today comes back to emergency room complaining of worsening dyspnea and again increasing his supplemental oxygen to 4 L. ER consulted me and I have evaluated patient in the ER. He is in mild respiratory distress. Chest x-ray no significant change compared to 11/09/2022 admission. There is still stable right hydropneumothorax. Bedside ultrasound examination showed reaccumulation of fluid, however I am suspecting an endobronchial tumor extension which is not allowing lung to expand. I have discussed with CT surgery as well as pulmonary critical care at [facility] for Pleurx catheter placement as well as bronchoscopic evaluation and possible tumor debulking if there is an endobronchial lesion. They have graciously accepted the case. Management plan was explained to patient and his at bedside, ER physician and arrangements were made to transfer patient to [facility]. His PFTs 09/01/2022-spirometry showed severe restriction with postbronchodilator FEV1 1.59 L 39% predicted and FVC 2.12 L 40% predicted FEV1/FVC 75. There is no significant response to bronchodilator. Lung volumes are not measured. DLCO is moderately reduced at 59% Review of Systems General: Reports: 10 or more systems reviewed and unremarkable except in HPI and below Medications/Allergies Home Medications Medication Instructions Recorded Confirmed Last Taken Type mupirocin 2 % topical ointment 1 applic topical BID #15 grams 04/01/22 11/13/22 11/02/22 Rx blood sugar diagnostic (Blood #50 ea 04/25/22 11/13/22 10/14/22 Rx Glucose Test strips) blood-glucose meter #1 ea 04/25/22 11/13/22 10/14/22 Rx lancets (Comfort Lancets) #100 ea 04/25/22 11/13/22 10/14/22 Rx lactulose 20 gram/30 mL oral 20 g (30 mL) PO BID PRN 06/08/22 11/13/22 2 Weeks Ago Rx solution constipation 30 days #1,800 mL ~10/04/22 metformin 500 mg tablet,extended 1,000 mg PO DAILY #60 tabs 06/08/22 11/13/22 11/12/22 Rx release 24 hr albuterol sulfate 90 mcg/actuation 2 puff inhalation 6XD PRN 08/02/22 11/13/22 11/02/22 Rx aerosol inhaler (Ventolin HFA) shortness of breath or wheezing #8.5 grams fluticasone fur. 200 mcg-umeclid 1 inh inhalation Q24H #60 ea 08/02/22 11/13/22 11/02/22 Rx 62.5 mcg-vilant 25 mcg inhalat.powder (Trelegy Ellipta) NEBULIZER MACHINE AND TUBING #1 ea 08/08/22 11/13/22 10/14/22 Rx SUPPLIES OVERNIGHT AT HOME SLEEP STUDY #1 ea 08/08/22 11/13/22 10/14/22 Rx OXYGEN AT 2 LITERS PER N/C #1 ea 08/08/22 11/13/22 10/14/22 Rx CONTINUOUS guaifenesin 1,200 mg tablet, 1,200 mg PO Q12H PRN congestion 08/15/22 11/13/22 08/15/22 History extended release 12 hr (Mucinex) pen needle, diabetic 33 gauge x #100 ea 0211/13/22 10/14/22 Rx (Comfort EZ Pen [place]) tiotropium bromide 2.5 2 puff inhalation DAILY 30 days #4 10/06/22 11/13/22 11/02/22 Rx mcg/actuation mist for inhalation grams (Spiriva Respimat) dapagliflozin 10 mg tablet 10 mg PO DAILY 10/13/22 11/13/22 11/08/22 History (Farxiga) polyethylene glycol 3350 17 gram 17 g PO DAILY PRN laxative effect 10/13/22 11/13/22 10/15/22 Rx oral powder packet (Miralax) #100 ea WHEELCHAIR WITH FOOT PEDALS #1 ea 11/04/22 11/13/22 Unknown Rx levofloxacin 750 mg tablet 750 mg PO DAILY 14 days #14 tabs 11/10/22 11/13/22 0 11/12/22 Rx linezolid 600 mg tablet 600 mg PO BID 14 days #28 tabs 11/10/22 11/13/22 11/12/22 Rx oxycodone 5 mg tablet 5 mg PO Q6H PRN pain 5 days #20 11/10/22 11/13/22 Unknown Rx tabs acetaminophen 500 mg tablet 1,000 mg PO Q6H PRN Pain 11/13/22 11/13/22 Unknown History atorvastatin 20 mg tablet 20 mg PO BEDTIME 11/13/22 11/13/22 11/12/22 History diclofenac sodium 1 % topical gel 2 - 4 g topical QID PRN Pain 11/13/22 11/13/22 Unknown History (Voltaren Arthritis Pain) dulaglutide 1.5 mg/0.5 mL 1.5 mg SUBCUT Q7D 11/13/22 11/13/22 Unknown History subcutaneous pen injector (Trulicity) ibuprofen 200 mg tablet 600 mg PO Q6H PRN Pain 11/13/22 11/13/22 Unknown History insulin glargine-yfgn 100 unit/mL 25 unit SUBCUT BID 11/13/22 11/13/22 Unknown History (3 mL) subcutaneous pen ipratropium 0.5 mg-albuterol 3 mg 3 ml inhalation TID 11/13/22 11/13/22 11/12/22 History (2.5 mg base)/3 mL nebulization soln multivitamin 1 tab PO DAILY 11/13/22 11/13/22 Unknown History naproxen sodium 220 mg tablet 440 mg PO Q12H PRN Pain 11/13/22 11/13/22 Unknown History (Aleve) sildenafil 100 mg tablet (Viagra) 50 - 100 mg PO DAILY PRN sexual 11/13/22 11/13/22 Unknown History activity Allergies Allergy/AdvReac Type Severity Reaction Status Date / Time aspirin Allergy ADR-Vomitin Verified 11/13/22 08:42 g codeine Allergy ALGY-Rash Verified 11/08/22 15:22 latex Allergy ALGY-Rash Verified 11/08/22 15:22 oxycodone Allergy dry heaving Verified 11/13/22 08:42 PFSH Acute PFSH: Medical History Abdominal pain Anxiety Caries COPD (chronic obstructive pulmonary disease) Diabetes mellitus with hyperglycemia, without long-term current use of insulin Erectile dysfunction GERD (gastroesophageal reflux disease) History of KS (myocardial infarction) Hyperlipidemia Hypertension Hypogonadism Mass of upper lobe of right lung Primary adenocarcinoma of upper lobe of right lung Smoking addiction Uncontrolled diabetes mellitus Surgical History History of appendectomy History of colonoscopy (~12/2019) History of total shoulder replacement Right Family History Other Cancer Diabetes Heart disease Hypertension Social History Smoking and tobacco status: current every day smoker cigarettes Packs smoked per day: 1 Years cigarettes smoked: 49 [ Other cigarette details: Started at age 8] Second hand smoke exposure: Yes Smoking risk assessment/counseling performed?: No Alcohol intake: current Alcohol intake frequency: holidays/special occasions only Desire information about alcohol rehabilitation?: No Counseling given: No Substance/Drug Use: unknown Desire information about substance/drug rehabilitation?: No Counseling given: No Adopted: No Caregiver/support person: No Lives independently: Yes Household members: family Housing: House Marital status: Number of children: 23 Number of grandchildren: 19 service: No Current occupational status: disabled Do you think of yourself as: Straight/Heterosexual Current gender identity: Male Vitals/I&O/Wt Last Vital Signs Temp 97.6 F 11/13/22 04:40 Pulse 121 H 11/13/22 12:28 Resp 18 11/13/22 07:18 BP 100/67 11/13/22 09:08 Pulse Ox 95 11/13/22 12:28 O2 Del Method Nasal Cannula 11/13/22 12:28 O2 Flow Rate 3 11/13/22 12:28 11/12/22 11/13/22 11/13/22 22:59 06:59 14:59 Intake Total 50 / 50 250 / 250 Balance 50 / 50 250 / 250 Weight last 48 hrs Weight 180 lb Physical Exam Narrative: General: alert, NAD HEENT: conj clear, EOMI, PERRL, mmm, Neck: supple, no meningismus Heme: no cervical LAP Respiratory: Inspection: No visible deformity of the chest wall Palpation: Trachea is mildly deviated to the right, bilateral symmetric expansion Percussion: Dullness to percussion on right side of the lung Auscultation: Reduced breath sounds on right side of the lung Cardiovascular: rrr, nl s1s2, no mrg Abdomen: soft, nt, nd, no r/g, bs+ Extremities: pulses +, no edema, no c/c : no CVA tenderness Skin: intact, no rash MSK: no back or neck pain Neurologic: grossly intact Data 11/13/22 05:00 11/13/22 05:00 Other Labs: Radiology Impressions Chest X-Ray 11/13/22 04:43 IMPRESSION: 1. No substantial interval change. Similar large right hydropneumothorax with small gaseous component. 2. Similar reticular opacities in the left lung. Laboratory Results WBC 15.5 10^3/uL (4.0-10.0) H 11/13/22 05:00 RBC 5.17 10^6/uL (4.1-5.3) 11/13/22 05:00 Hgb 14.3 g/dL (11.7-16.6) 11/13/22 05:00 Hct 43.8 % (42.0-52.0) 11/13/22 05:00 MCV 84.7 fl (80-94) 11/13/22 05:00 MCH 27.7 pg (28.0-34.0) L 11/13/22 05:00 MCHC 32.6 g/dL (30.0-36.0) 11/13/22 05:00 RDW 13.7 % (12.1-15.1) 11/13/22 05:00 Plt Count 351 10^3/cmm (130-400) 11/13/22 05:00 MPV 8.9 fL (7.4-10.4) 11/13/22 05:00 Neut % (Auto) 86.9 % 11/13/22 05:00 Lymph % (Auto) 8.8 % 11/13/22 05:00 [place] % (Auto) 3.2 % 11/13/22 05:00 Eos % (Auto) 0.4 % 11/13/22 05:00 Baso % (Auto) 0.2 % 11/13/22 05:00 Neut # (Auto) 13.45 10^3/uL (1.8-7.7) H 11/13/22 05:00 Lymph # (Auto) 1.4 10^3/uL (0.8-4.8) 11/13/22 05:00 [place] # (Auto) 0.5 10^3/uL (0.2-0.9) 11/13/22 05:00 Eos # (Auto) 0.1 10^3/uL (0.0-0.8) 11/13/22 05:00 Baso # (Auto) 0.0 10^3/uL (0.0-0.1) 11/13/22 05:00 Nucleated RBC % (auto) 0 % 11/13/22 05:00 Nucleated RBCs # 0.0 /100WBC 11/13/22 05:00 Sodium 138 mmol/L (136-145) 11/13/22 05:00 Potassium 3.2 mmol/L (3.5-5.1) L 11/13/22 05:00 Chloride 102 mmol/L (98-107) 11/13/22 05:00 Carbon Dioxide 22 mmol/L (22-29) 11/13/22 05:00 Anion Gap 17.2 (5-19) 11/13/22 05:00 BUN 9 mg/dL (6-20) 11/13/22 05:00 Creatinine 0.5 mg/dL (0.7-1.2) L 11/13/22 05:00 GFR Calculation 170.8 mL/min (90-130) H 11/13/22 05:00 Glucose 126 mg/dL (65-115) H 11/13/22 05:00 Calculated Osmolality 286 mOsm/kg (285-295) 11/13/22 05:00 Lactic Acid 2.3 mmol/L (0.5-2.2) H 11/13/22 05:00 Lactic Acid (Sepsis) 2.4 mmol/L (0.5-2.2) H 11/13/22 08:27 Calcium 7.6 mg/dL (8.5-10.5) L 11/13/22 05:00 Magnesium 1.6 mg/dL (1.7-2.3) L 11/13/22 05:00 Total Bilirubin 0.4 mg/dL (0.15-1.2) 11/13/22 05:00 AST 11 U/L (0-40) 11/13/22 05:00 ALT 7 U/L (0-41) 11/13/22 05:00 Alkaline Phosphatase 56 U/L (40-130) 11/13/22 05:00 NT-Pro-B Natriuret Pep 202 pg/mL (0-125) H 11/13/22 05:00 Total Protein 5.1 g/dL (6.6-8.7) L 11/13/22 05:00 Albumin 2.4 g/dL (3.5-5.2) L 11/13/22 05:00 Globulin 2.7 g/dL (1.3-4.6) 11/13/22 05:00 Micro: Microbiology 11/13/22 05:44 Blood Culture - Preliminary Blood SPECIMEN COLLECTED 11/13/22 05:40 Blood Culture - Preliminary Blood SPECIMEN COLLECTED A&P Assessment and plan (1) Recurrent pleural effusion on right: Patient underwent thoracentesis on 10/18/2022-removed 2300 cc sanguinous fluid and again 11/03/2022 removed 2060 cc sanguinous fluid. Both locations postpr ocedure there is complete whiteout of right lung suggesting extensive tumor involvement of right lung causing consolidation vs trapped lung due to bronchial obstruction. But patient did have symptomatic improvement and hence decided to place Pleurx catheter if the fluid recurs. Patient comes back to ER on 11/08/2022 for symptomatic dyspnea-attempted placing Pleurx catheter on 11/09/2022 when he came with recurrent dyspnea and pleural effusion-however could not advance the Pleurx catheter and most of the fluid was drained out. Postprocedure chest x-ray showed right hydropneumothorax which remained stable over the next 24 hours and patient has symptomatic improvement and so discharged home. Today comes back again with worsening dyspnea-chest x-ray showed stable right hydropneumothorax unchanged from 11/09/2022. Bedside ultrasound examination showed reaccumulation of fluid, however I am suspecting an endobronchial tumor extension which is not allowing lung to expand. I have discussed with CT surgery as well as pulmonary critical care at [facility] for Pleurx catheter placement as well as bronchoscopic evaluation and possible tumor debulking if there is an endobronchial lesion. They have graciously accepted the case. Management plan was explained to patient and his at bedside, ER physician and arrangements were made to transfer patient to [facility]. (2) Primary adenocarcinoma of upper lobe of right lung: #Metastatic adenocarcinoma of lung MRI no evidence of brain mets Tissue molecular testing 10/24/2022 negative for any targetable mutation but PD-L1 was positive Recently decision was made by oncology to start pembrolizumab/carboplatin/Alimta every 3 weeks?pending insurance approval Today patient is scheduled for Port-A-Cath placement Consult Attestations Medical Necessity Statement: Transfer to [facility] for possible tumor debulking as well as Pleurx catheter placement Coding Level of Care Code 74868 Diagnoses Recurrent pleural effusion on right J90 Primary adenocarcinoma of upper lobe of right lung C34.11 Time Spent (min) 73
== END 2022-11-13 14:04 | disposition short-term general hospital (02) ==
PROVIDERS: Emergency Medicine; Emergency Provider Emergency Medicine; PCP Nurse Practitioner Family
DX: J44.9 Chronic obstructive pulmonary disease, unspecified (principal); R91.8 Other nonspecific abnormal finding of lung field; J90 Pleural effusion, not elsewhere classified; I25.2 Old myocardial infarction; E78.5 Hyperlipidemia, unspecified; E11.9 Type 2 diabetes mellitus without complications; I10 Essential (primary) hypertension; F17.210 Nicotine dependence, cigarettes, uncomplicated
CPT/HCPCS: 36415; 71045; 80053; 83605; 83735; 83880; 85025; 87040; 93005; 94640; 96365; 96366; 96367; 96375; 99285; J2270; J2543; J3370; J7050

== ENCOUNTER 2022-11-14 08:30 | Oncology outpatient (recurring) (ONCR) | payer MEDICARE, MEDICAID, SELFPAY ==
[2022-11-01 13:09] LABS: Basophils # 0.1 10^3/uL (0.0-0.1); Basophils % 0.5 %; Eosinophils # 0.1 10^3/uL (0.0-0.8); Eosinophils % 0.7 %; Hematocrit 49.5 % (42.0-52.0); Hemoglobin 16.1 g/dL (11.7-16.6); Lymphocytes # 1.5 10^3/uL (0.8-4.8); Lymphocytes % 11.9 %; Mean Corpuscular HGB Conc 32.5 g/dL (30.0-36.0); Mean Corpuscular Hemoglobin 27.3 pg (28.0-34.0); Mean Corpuscular Volume 83.9 fl (80-94); Mean Platelet Volume 9.3 fL (7.4-10.4); Monocytes # 0.7 10^3/uL (0.2-0.9); Monocytes % 5.4 %; Neutrophils # 9.88 10^3/uL (1.8-7.7); Neutrophils % 81.3 %; Nucleated Red Blood Cells % 0 %; Platelet Count 369 10^3/cmm (130-400); Red Cell Distribution Width 13.7 % (12.1-15.1); White Blood Count 12.2 10^3/uL (4.0-10.0)
[2022-11-01 13:32] LABS: Alanine Aminotransferase 7 U/L (0-41); Alkaline Phosphatase 89 U/L (40-130); Anion Gap 15.5 (5-19); Aspartate Amino Transferase 14 U/L (0-40); Blood Urea Nitrogen 8 mg/dL (6-20); Calcium 9.1 mg/dL (8.5-10.5); Carbon Dioxide 30 mmol/L (22-29); Chloride 97 mmol/L (98-107); Globulin 3.7 g/dL (1.3-4.6); Glomerular Filtration Rate 115.8 mL/min (90-130); Glucose 155 mg/dL (65-115); Osmolality Calculated 287 mOsm/kg (285-295); Potassium 4.5 mmol/L (3.5-5.1); Sodium 138 mmol/L (136-145); Total Bilirubin 0.6 mg/dL (0.15-1.2); Total Protein 6.7 g/dL (6.6-8.7)
[2022-11-01 14:15] VITALS: BP 114/79; PULSE 109; RESP 18; TEMP 36.7; O2SAT 96
[2022-11-01] MEDS: sodium chloride 0.9% 250 ML 999 ML IV (14:22)
[2022-11-01] MEDS: dexamethasone 10 mg/mL INJ IVP (14:23)
[2022-11-01 14:45] VITALS: BP 112/80; PULSE 102; RESP 18; TEMP 36.7; O2SAT 95
== END 2022-11-20 23:59 | disposition home or self-care (01) ==
PROVIDERS: PCP Nurse Practitioner Family; Visit Provider Internal Medicine Hematology & Oncology
DX: C34.11 Malignant neoplasm of upper lobe, right bronchus or lung (principal)
CPT/HCPCS: 36415; 80053; 85025; 96360; 96375; 99214; J1100; J7050